=== PATIENT | female | born 1935 | race Caucasian/White ===

== ENCOUNTER 2017-10-30 14:43 | Inpatient (IN) | payer MEDICARE, MEDICAID ==
[~2017-10-30] VITALS: Ht 132.1 cm; Wt 51.5 kg
[2017-10-30] MEDS ORDERED: METHYL SALICYLATE/MENTHOL TOPICAL OINTMENT 29GM TUBE. TP PRN (15:30)
[2017-10-30] MEDS ORDERED: MAG HYDROX/AL HYDROX/SIMETH 30 ML ORAL.SUSP PO PRN (15:30)
[2017-10-30] MEDS ORDERED: MAGNESIUM HYDROXIDE 2,400 MG/30 ML ORAL.SUSP. PO PRN (15:30)
[2017-10-30] MEDS ORDERED: LEVO200T PO (15:48)
[2017-10-30] MEDS ORDERED: IRBE75TA2 PO (15:48)
[2017-10-30] MEDS ORDERED: ASPI-612 PO (15:48)
[2017-10-30] MEDS ORDERED: DIGO250T92 PO (15:48)
[2017-10-30] MEDS ORDERED: QUET25TA5 PO (15:48)
[2017-10-30] MEDS ORDERED: CHOL100013 PO (15:48)
[2017-10-30] MEDS ORDERED: DILT120C80 PO (15:48)
[2017-10-30] MEDS ORDERED: NITR0.4T22 SL (15:48)
[2017-10-30] MEDS ORDERED: DOCU-109 PO (15:48)
[2017-10-30] MEDS ORDERED: NAPR-695 PO (15:48)
[2017-10-30] MEDS ORDERED: CLOP75TA57 PO (15:48)
[2017-10-30 16:12] VITALS: BP 143/74
[2017-10-30 16:17] VITALS: BP 129/69
[2017-10-30 16:38] LABS: ALBUMIN 3.2 g/dL (3.4-5.0); ALBUMIN/GLOBULIN RATIO 0.9 (1.0-1.7); CALCIUM 8.8 mg/dL (8.5-10.1); CREATININE 0.8 mg/dL (0.6-1.0); DIG 0.9 ng/dL (0.9-2.0); GFR 68.7; MAGNESIUM 2.1 mg/dL (1.8-2.4); POTASSIUM 4.5 mmol/L (3.5-5.1); TOTAL BILIRUBIN 0.4 mg/dL (0.2-1.0); TOTAL PROTEIN 6.8 g/dL (6.4-8.2)
[2017-10-30 17:01] LABS: BASO # 0.1 x10^3/uL (0.0-0.2); BASO % 1 % (0-3); EOS # 0.5 x10^3/uL (0.0-0.7); EOS % 5 % (0-3); HEMATOCRIT 45.8 % (36.0-47.0); HEMOGLOBIN 15.4 g/dL (12.0-15.5); LYMPH # 3.2 x10^3/uL (1.0-4.8); LYMPH % 31 % (24-48); MEAN CORPUSCULAR HEMOGLOBIN 30 pg (25-35); MEAN CORPUSCULAR HGB CONC 34 g/dL (31-37); MEAN CORPUSCULAR VOLUME 90 fL (79-100); MONO % 10 % (0-9); NEUT # 5.6 x10^3uL (1.8-7.7); NEUT % 54 % (31-73); PLATELET COUNT 332 x10^3/uL (140-400); RED BLOOD COUNT 5.07 x10^6/uL (3.50-5.40); WHITE BLOOD COUNT 10.4 x10^3/uL (4.0-11.0)
[2017-10-30] MEDS ORDERED: NITROGLYCERIN SUBLINGUAL 0.4 MG BOTTLE OF 25. SL PRN (18:30)
--- NOTE | 2017-10-30 19:19 | PDOC ---
Exam Note: Jj Note: Please also refer to the separate dictated note~for this date of service dictated separately.~Patient seen individually. Discussed the patient with Nursing staff reviewed the chart.~Reviewed interim history and current functioning. Reviewed vital signs,~Labs/ Radiology~and current medications noted below. Continue current treatment with the changes noted in the dictated addendum note Assessment: Vital Signs: Vital Signs Date Time Temp Pulse Resp B/P (MAP) Pulse Ox O2 Delivery O2 Flow Rate FiO2 10/30/17 16:17 98.2 75 18 129/69 (89) 95 Labs: Laboratory Tests Test 10/30/17 16:15 White Blood Count 10.4 x10^3/uL (4.0-11.0) Red Blood Count 5.07 x10^6/uL (3.50-5.40) Hemoglobin 15.4 g/dL (12.0-15.5) Hematocrit 45.8 % (36.0-47.0) Mean Corpuscular Volume 90 fL (79-100) Mean Corpuscular Hemoglobin 30 pg (25-35) Mean Corpuscular Hemoglobin Concent 34 g/dL (31-37) Red Cell Distribution Width 14.0 % (11.5-14.5) Platelet Count 332 x10^3/uL (140-400) Neutrophils (%) (Auto) 54 % (31-73) Lymphocytes (%) (Auto) 31 % (24-48) Monocytes (%) (Auto) 10 % (0-9) H Eosinophils (%) (Auto) 5 % (0-3) H Basophils (%) (Auto) 1 % (0-3) Neutrophils # (Auto) 5.6 x10^3uL (1.8-7.7) Lymphocytes # (Auto) 3.2 x10^3/uL (1.0-4.8) Monocytes # (Auto) 1.0 x10^3/uL (0.0-1.1) Eosinophils # (Auto) 0.5 x10^3/uL (0.0-0.7) Basophils # (Auto) 0.1 x10^3/uL (0.0-0.2) Sodium Level 140 mmol/L (136-145) Potassium Level 4.5 mmol/L (3.5-5.1) Chloride Level 104 mmol/L (98-107) Carbon Dioxide Level 26 mmol/L (21-32) Anion Gap 10 (6-14) Blood Urea Nitrogen 20 mg/dL (7-20) Creatinine 0.8 mg/dL (0.6-1.0) Estimated GFR (Cockcroft-Gault) 68.7 BUN/Creatinine Ratio 25 (6-20) H Glucose Level 112 mg/dL (70-99) H Calcium Level 8.8 mg/dL (8.5-10.1) Magnesium Level 2.1 mg/dL (1.8-2.4) Total Bilirubin 0.4 mg/dL (0.2-1.0) Aspartate Amino Transferase (AST) 33 U/L (15-37) Alanine Aminotransferase (ALT) 34 U/L (14-59) Alkaline Phosphatase 164 U/L (46-116) H Total Protein 6.8 g/dL (6.4-8.2) Albumin 3.2 g/dL (3.4-5.0) L Albumin/Globulin Ratio 0.9 (1.0-1.7) L Digoxin Level 0.9 ng/dL (0.9-2.0) Digoxin Last Dose Date 10/30/17 Digoxin Last Dose Time 0900 Current Medications: Meds: Current Medications Acetaminophen (Tylenol) 650 mg PRN Q6HRS PRN PO PAIN / TEMP; Start 10/30/17 at 15:30 Multi-Ingredient Ointment (Analgesic [place]) 1 annita PRN QID PRN TP MUSCLE PAIN; Start 10/30/17 at 15:30 Al Hydroxide/Mg Hydroxide (Mylanta Plus Xs) 15 ml PRN AFTMEALHC PRN PO DYSPEPSIA; Start 10/30/17 at 15:30 Magnesium Hydroxide (Milk Of Magnesia) 2,400 mg PRN QHS PRN PO CONSTIPATION; Start 10/30/17 at 15:30 Quetiapine Fumarate (SEROquel) 12.5 mg BID PO ; Start 10/30/17 at 21:00; Stop 10/30/17 at 21:00; Status DC Info (FLU VACCINE per PROTOCOL) 1 ea 1X ONCE MC ; Start 11/01/17 at 09:00; Stop 11/01/17 at 09:01; Status UNV Pneumococcal Polyvalent Vaccine (Pneumovax 23) 0.5 ml ONCE ONCE VAX IM ; Start 11/01/17 at 09:00; Stop 11/01/17 at 09:01 Influenza Virus Vaccine Quadrival (Fluarix Quad [id number] Syringe) 0.5 ml ONCE ONCE VAX IM ; Start 11/01/17 at 09:00; Stop 11/01/17 at 09:01 Aspirin (Aspirin Enteric Coated) 81 mg DAILY PO ; Start 10/31/17 at 09:00 Clopidogrel Bisulfate (Plavix) 75 mg DAILY PO ; Start 10/31/17 at 09:00 Digoxin (Lanoxin) 125 mcg DAILY PO ; Start 10/31/17 at 09:00 Diltiazem HCl (Cardizem 24hr Cd) 120 mg DAILY PO ; Start 10/31/17 at 09:00 Docusate Sodium (Colace) 100 mg BID PO ; Start 10/30/17 at 21:00 Nitroglycerin (Nitrostat) 0.4 mg PRN Q5MIN PRN SL CHEST PAIN; Start 10/30/17 at 18:30 Vitamin D (Vitamin D3) 1,000 unit DAILY PO ; Start 10/31/17 at 09:00 Losartan Potassium (Cozaar) 25 mg DAILY PO ; Start 10/31/17 at 09:00 Levothyroxine Sodium (Synthroid) 200 mcg DAILY07 PO ; Start 10/31/17 at 07:00 Quetiapine Fumarate (SEROquel) 12.5 mg DAILY PO ; Start 10/31/17 at 09:00 Quetiapine Fumarate (SEROquel) 25 mg QHS PO ; Start 10/30/17 at 21:00 Active Scripts Active Reported Naproxen 375 Mg Tablet 375 Mg PO PRN Q8HRS PRN NITROGLYCERIN SubLingual (Nitroglycerin) 0.4 Mg Tab.subl 1 Tab SL PRN Q5MIN PRN MDD 3 tabs Seroquel (Quetiapine Fumarate) 25 Mg Tablet 12.5 Mg PO BID Colace (Docusate Sodium) 100 Mg Capsule 1 Cap PO BID Diltiazem 24HR Cd (Diltiazem Hcl) 120 Mg Cap.er.24h 1 Cap PO DAILY Vitamin D (Cholecalciferol (Vitamin D3)) 1,000 Unit Capsule 1 Cap PO DAILY Synthroid (Levothyroxine Sodium) 200 Mcg Tablet 1 Tab PO DAILY Avapro (Irbesartan) 75 Mg Tablet 75 Mg PO DAILY Digoxin 250 Mcg Tablet 0.125 Mg PO DAILY Aspirin Ec (Aspirin) 81 Mg Tablet. 81 Mg PO DAILY Plavix (Clopidogrel Bisulfate) 75 Mg Tablet 75 Mg PO DAILY I have reviewed the current psychotropics carefully including drug interactions. Risk benefit ratio favors no change other than as noted in my dictated progress note. Diagnosis: Problems: (1) Dementia in Alzheimer's disease with delirium (2) Anxiety disorder (3) Psychosis, atypical SERA THOMAS MD Oct 30, 2017 19:19
[2017-10-30] MEDS: QUEtiapine 25 MG TABLET. PO SCH (19:39)
[2017-10-30] MEDS: DOCUSATE SODIUM 100 MG CAPSULE PO SCH (19:39)
[2017-10-30] MEDS ORDERED: QUEtiapine 25 MG TABLET. PO SCH (21:00)
[2017-10-31 03:12] LABS: T3 TOTAL 114 ng/dL (71-180); THYROXINE 12.8 ug/dL (4.5-12.0)
[2017-10-31 04:09] LABS: HEMOGLOBIN A1C 5.1 % (4.8-5.6)
[2017-10-31 06:00] VITALS: BP 100/65
[2017-10-31] MEDS: LEVOTHYROXINE 100 MCG TABLET PO SCH (06:06)
[2017-10-31 08:00] LABS: BILIRUBIN,URINE NEG (NEG); CLARITY,URINE CLEAR; COLOR,URINE YELLOW; GLUCOSE,URINE NEG (NEG)
[2017-10-31 08:01] LABS: BACTERIA,URINE 0 /HPF (0-FEW); NITRITE,URINE NEG (NEG); RBC,URINE 0 /HPF (0-2); UROBILINOGEN,URINE 0.2 mg/dL (0.2 mg/dL); WBC,URINE 0 /HPF (0-4)
[2017-10-31] MEDS: ASPIRIN ENTERIC COATED 81 MG TABLET.DR. PO SCH (09:08)
[2017-10-31] MEDS: LOSARTAN 25 MG TABLET. PO SCH (09:08)
[2017-10-31] MEDS: DOCUSATE SODIUM 100 MG CAPSULE PO SCH ×2 (09:08→19:43)
[2017-10-31] MEDS: CHOLECALCIFEROL (VITAMIN D3) 1,000 UNIT TABLET PO SCH (09:08)
[2017-10-31] MEDS: DIGOXIN 125 MCG TABLET PO SCH (09:09)
[2017-10-31] MEDS: CLOPIDOGREL BISULFATE 75 MG TABLET PO SCH (09:09)
[2017-10-31] MEDS: QUEtiapine 25 MG TABLET. PO SCH ×2 (09:09→19:43)
[2017-10-31] MEDS: ACETAMINOPHEN 325 MG TABLET PO PRN ×2 (10:24→17:11)
--- NOTE | 2017-10-31 13:13 | HP ---
ADMIT DATE: 10/30/2017 PSYCHIATRIC ADMISSION HISTORY/EVALUATION This is a late entry, date of service 10/30/2017, covers elements not covered in my initial note . The patient was seen individually evening of 10/30/2017. Discussed with nursing staff several times prior to the patient's admission to gather background referral information from [facility] where the patient was hospitalized with Dr. Toussaint for medical stabilization and being referred to us on account of worsening psychosis, agitation after her legal guardian, her daughter, was appointed as an emergency by the court to facilitate this admission. Discussed with nursing staff, reviewed the chart. IDENTIFYING DATA: The patient is an 82-year-old female referred from [facility] where she has been hospitalized a few days with Dr. Toussaint for medical stabilization. She is referred for worsening symptoms of paranoia, increased agitation and aggression. She has had a drop in her appetite and weight. She goes to bank account, kept the money on herself because she believes people are trying to steal from her. She is refusing cares, has been depressed, increasingly angry in her outburst, drop in her level of abilities to take care of herself even though she was living at home prior to all this. She has been increasingly aggressive. Symptoms have worsened for the past 1 year, much worse over the past several days, initially resulting in the referral to the [facility] and then on to us. CHIEF COMPLAINT: "There is nothing wrong with me." HISTORY OF PRESENT ILLNESS: The patient reportedly has had symptoms of depression, marked paranoia, believing people are trying to steal from her. She has been withdrawn, spending much time in her room, anxious. She has had sleep and appetite changes as noted above. No active suicidal or homicidal ideation. No clear symptoms of bipolar disorder. She has had some short-term memory deficits, but despite this remains reasonably oriented. PAST PSYCHIATRIC HISTORY: As above. PAST MEDICAL HISTORY: Positive for atrial fibrillation, hypothyroidism, osteoarthritis, chronic pain, history of CVA/TIA. Accu-Cheks, none. DIET: Regular. Ambulates with a walker. CODE STATUS: Full code. ALLERGIES: AMOXIL, AZITHROMYCIN, LIPITOR. CURRENT PSYCHOTROPICS: Seroquel 12.5 mg b.i.d. FAMILY HISTORY: Noncontributory. SOCIAL HISTORY: The patient was residing at home herself prior to all of this. No alcohol or drug abuse history. She used to work in housekeeping at the hospital locally. MENTAL STATUS EXAMINATION: The patient was seen individually evening of 10/30/2017. She is oriented to herself, situation, minimizes, denies most of the problems, prompting admission. She does have short term memory deficits. Speech coherent, rapid at times quite paranoid, suspicious. No active suicidal or homicidal ideation. Intellect average. Insight limited, judgment marginal, language function intact. Mood and affect somewhat depressed, anxious. LABORATORY DATA: Reviewed. 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 Rest unchanged as above. PLAN: Admit to Geropsychiatry Unit at [facility]. I will see the patient daily individually, medical followup per Dr. Callaway/Dr. Lam. Continue current psychotropics. We will increase the Seroquel from 12.5 mg b.i.d. to 12.5 mg in the morning and 25 mg in the evening. Consider adding Zoloft as an antidepressant. There is a history of fall and a head injury and if a CT head has not been done, we will go ahead and do one. Further decisions will be made as hospitalization progresses. MAN Daron THOMAS MD DR: MEÑO/alexx JOB#: [id number] / [id number]
[2017-10-31 13:35] LABS: THYROID STIM HORMONE (TSH) 18.159 uIU/mL (0.358-3.740)
--- NOTE | 2017-10-31 14:33 | RAD ---
CT head without contrast History: Dementia. Comparison: None. Procedure: Axial images are obtained of the head from the skull base through the vertex without IV contrast. Findings: Moderate bilateral periventricular white matter hypodensities likely chronic small vessel ischemic disease. Mild age-related cerebral atrophy changes. The ventricles appear mildly prominent probably age-related cerebral atrophic changes.. No mass-effect, intracranial mass, midline shift, hemorrhage or obvious acute infarction is identified. Basilar cisterns are patent. Bone windows demonstrate no significant calvarial abnormality. The visualized paranasal sinuses appear clear. Impression: 1. No acute intracranial process. PQRS Compliance Statement: One or more of the following individualized dose reduction techniques were utilized for this examination: 1. Automated exposure control 2. Adjustment of the mA and/or kV according to patient size 3. Use of iterative reconstruction technique
[2017-10-31 15:27] VITALS: BP 131/78
--- NOTE | 2017-10-31 20:21 | PDOC ---
Exam Note: Jj Note: Please also refer to the separate dictated note~for this date of service dictated separately.~Patient seen individually. Discussed the patient with Nursing staff reviewed the chart.~Reviewed interim history and current functioning. Reviewed vital signs,~Labs/ Radiology~and current medications noted below. Continue current treatment with the changes noted in the dictated addendum note Assessment: Vital Signs: Vital Signs Date Time Temp Pulse Resp B/P (MAP) Pulse Ox O2 Delivery O2 Flow Rate FiO2 10/31/17 15:27 97.6 64 22 131/78 (95) 95 Labs: Laboratory Tests Test 10/31/17 07:00 Urine Collection Type Unknown Urine Color Yellow Urine Clarity Clear Urine pH 7.0 Urine Specific [place] 1.015 Urine Protein Neg (NEG-TRACE) Urine Glucose (UA) Neg mg/dL (NEG) Urine Ketones (Stick) Neg mg/dL (NEG) Urine Blood Neg (NEG) Urine Nitrite Neg (NEG) Urine Bilirubin Neg (NEG) Urine Urobilinogen Dipstick 0.2 mg/dL (0.2 mg/dL) Urine Leukocyte Esterase Neg (NEG) Urine RBC 0 /HPF (0-2) Urine WBC 0 /HPF (0-4) Urine Squamous Epithelial Cells None /LPF Urine Bacteria 0 /HPF (0-FEW) Current Medications: Meds: Current Medications Acetaminophen (Tylenol) 650 mg PRN Q6HRS PRN PO PAIN / TEMP Last administered on 10/31/17at 17:11; Start 10/30/17 at 15:30 Multi-Ingredient Ointment (Analgesic [place]) 1 annita PRN QID PRN TP MUSCLE PAIN; Start 10/30/17 at 15:30 Al Hydroxide/Mg Hydroxide (Mylanta Plus Xs) 15 ml PRN AFTMEALHC PRN PO DYSPEPSIA; Start 10/30/17 at 15:30 Magnesium Hydroxide (Milk Of Magnesia) 2,400 mg PRN QHS PRN PO CONSTIPATION; Start 10/30/17 at 15:30 Quetiapine Fumarate (SEROquel) 12.5 mg BID PO ; Start 10/30/17 at 21:00; Stop 10/30/17 at 21:00; Status DC Info (FLU VACCINE per PROTOCOL) 1 ea 1X ONCE MC ; Start 11/01/17 at 09:00; Stop 11/01/17 at 09:01; Status UNV Pneumococcal Polyvalent Vaccine (Pneumovax 23) 0.5 ml ONCE ONCE VAX IM ; Start 11/01/17 at 09:00; Stop 11/01/17 at 09:01 Influenza Virus Vaccine Quadrival (Fluarix Quad [id number] Syringe) 0.5 ml ONCE ONCE VAX IM ; Start 11/01/17 at 09:00; Stop 11/01/17 at 09:01 Aspirin (Aspirin Enteric Coated) 81 mg DAILY PO Last administered on 10/31/17 09:08; Start 10/31/17 at 09:00 Clopidogrel Bisulfate (Plavix) 75 mg DAILY PO Last administered on 10/31/17 09: 09; Start 10/31/17 at 09:00 Digoxin (Lanoxin) 125 mcg DAILY PO Last administered on 10/31/17 09:09; Start 10/31/17 at 09:00 Diltiazem HCl (Cardizem 24hr Cd) 120 mg DAILY PO Last administered on 10/31/17 09:08; Start 10/31/17 at 09:00 Docusate Sodium (Colace) 100 mg BID PO Last administered on 10/31/17 19:43; Start 10/30/17 at 21:00 Nitroglycerin (Nitrostat) 0.4 mg PRN Q5MIN PRN SL CHEST PAIN; Start 10/30/17 at 18:30 Vitamin D (Vitamin D3) 1,000 unit DAILY PO Last administered on 10/31/17 09:08 ; Start 10/31/17 at 09:00 Losartan Potassium (Cozaar) 25 mg DAILY PO Last administered on 10/31/17 09:08 ; Start 10/31/17 at 09:00 Levothyroxine Sodium (Synthroid) 200 mcg DAILY07 PO Last administered on 06:06; Start 10/31/17 at 07:00 Quetiapine Fumarate (SEROquel) 12.5 mg DAILY PO Last administered on 10/31/17 09:09; Start 10/31/17 at 09:00 Quetiapine Fumarate (SEROquel) 25 mg QHS PO Last administered on 10/31/17 19:43 ; Start 10/30/17 at 21:00 Sertraline HCl (Zoloft) 25 mg DAILY PO ; Start 11/01/17 at 09:00 Active Scripts Active Reported Naproxen 375 Mg Tablet 375 Mg PO PRN Q8HRS PRN NITROGLYCERIN SubLingual (Nitroglycerin) 0.4 Mg Tab.subl 1 Tab SL PRN Q5MIN PRN MDD 3 tabs Seroquel (Quetiapine Fumarate) 25 Mg Tablet 12.5 Mg PO BID Colace (Docusate Sodium) 100 Mg Capsule 1 Cap PO BID Diltiazem 24HR Cd (Diltiazem Hcl) 120 Mg Cap.er.24h 1 Cap PO DAILY Vitamin D (Cholecalciferol (Vitamin D3)) 1,000 Unit Capsule 1 Cap PO DAILY Synthroid (Levothyroxine Sodium) 200 Mcg Tablet 1 Tab PO DAILY Avapro (Irbesartan) 75 Mg Tablet 75 Mg PO DAILY Digoxin 250 Mcg Tablet 0.125 Mg PO DAILY Aspirin Ec (Aspirin) 81 Mg Tablet.dr 81 Mg PO DAILY Plavix (Clopidogrel Bisulfate) 75 Mg Tablet 75 Mg PO DAILY I have reviewed the current psychotropics carefully including drug interactions. Risk benefit ratio favors no change other than as noted in my dictated progress note. Diagnosis: Problems: (1) Dementia in Alzheimer's disease with delirium (2) Anxiety disorder (3) Psychosis, atypical SERA THOMAS MD Oct 31, 2017 20:21
[2017-11-01] MEDS: ACETAMINOPHEN 325 MG TABLET PO PRN (00:33)
[2017-11-01 05:58] VITALS: BP 120/59
[2017-11-01] MEDS: LEVOTHYROXINE 100 MCG TABLET PO SCH (06:07)
[2017-11-01] MEDS: CLOPIDOGREL BISULFATE 75 MG TABLET PO SCH (07:47)
[2017-11-01] MEDS: DIGOXIN 125 MCG TABLET PO SCH (07:47)
[2017-11-01] MEDS: CHOLECALCIFEROL (VITAMIN D3) 1,000 UNIT TABLET PO SCH (07:47)
[2017-11-01] MEDS: ASPIRIN ENTERIC COATED 81 MG TABLET.DR. PO SCH (07:48)
[2017-11-01] MEDS: QUEtiapine 25 MG TABLET. PO SCH ×2 (07:48→19:51)
[2017-11-01] MEDS: DOCUSATE SODIUM 100 MG CAPSULE PO SCH ×2 (07:48→19:51)
[2017-11-01] MEDS: LOSARTAN 25 MG TABLET. PO SCH (07:48)
[2017-11-01] MEDS: SERTRALINE 25 MG TABLET. PO SCH (07:50)
[2017-11-01] MEDS ORDERED: Influenza vaccine per PROTOCOL. MC ONE (09:00)
[2017-11-01] MEDS ORDERED: FLU VACC QS2017-18 (36MOS+)/PF 0.5 ML SYRINGE. VAX IM ONE (09:00)
[2017-11-01] MEDS ORDERED: PNEUMOC CONJ VACC 23-VALENT 0.5 ML VIAL. VAX IM ONE (09:00)
[2017-11-01] MEDS: CHOLECALCIFEROL (VITAMIN D3) 50,000 UNIT CAPSULE PO SCH (12:42)
--- NOTE | 2017-11-01 14:30 | HP ---
ADMIT DATE: 10/31/2017 MEDICAL HISTORY AND PHYSICAL FOR THE SENIOR BEHAVIORAL UNIT REASON FOR ADMISSION TO THE SENIOR BEHAVIORAL UNIT: This is an 82-year-old female who was transferred via [facility]. Prior to that, has lived in her own apartment, but the patient has been paranoid, stashing merchant on her purse and canceled her bank accounts, losing weight, no appetite, refusing care, depressed, increased anger and decreased activities of daily living and has been aggressive, her onset of symptoms in the past year. The patient has refused psychiatric care in the past. PAST MEDICAL HISTORY: Possibly paranoid ideation with dementia, atrial fibrillation, secondary hypothyroidism, osteoarthritis, chronic pain, history of CVA and TIAs. ALLERGIES: AMOXICILLIN. MEDICATIONS: Reviewed and are available on the MAR. REVIEW OF SYSTEMS: The patient having a lot of arthritic type pain, otherwise negative. OBJECTIVE: VITAL SIGNS: Blood pressure 131/78, pulse 64, respirations 22, pulse ox 95% on room air, temperature 97.6, height 52 inches, weight 111 pounds. GENERAL: Very petite female in no acute distress. She is resting comfortably in bed. HEENT: Her pupils were equal, round, and reactive to light. Extraocular muscles were intact. Nose was patent. Throat was clear. NECK: Supple. LUNGS: Clear to auscultation. CARDIOVASCULAR: Irregular rhythm and rate, 2/6 systolic murmur. ABDOMEN: Soft, nontender. EXTREMITIES: Without edema. NEUROLOGIC: Cranial nerves were intact. The patient can follow directions. She does have a slight tremor of her hands, does have severe osteoarthritis of the right knee and left knee and of her hands, particularly in the left hand. LABORATORY DATA: She had TSH of 15.70 and T4 elevated at 2.67 on 10/27/2017. She has low vitamin D of 11.8. TSH of 18.159 and T4 of 12.8. Other studies pending. B12 is 523. ASSESSMENT AND PLAN: 1. Frail elderly 82-year-old female. 2. Severe osteoarthritis. 3. Secondary hypothyroidism. Make sure she takes her levothyroxine. Had previously been on Cytomel, which she took herself off of 8-10 months ago. We will need an Endocrinology consult when she is discharged. 4. Atrial fibrillation with a history of rapid ventricular response. Monitor closely and follow along with Dr. Davila. HARVEY MENDOZA DO DR: BRIAN/alexx JOB#: [id number] / [id number]
[2017-11-01 16:00] VITALS: BP 109/58
[2017-11-01] MEDS: traMADol 50 MG TABLET PO PRN (17:35)
--- NOTE | 2017-11-01 19:40 | PDOC ---
Exam Note: Jj Note: Please also refer to the separate dictated note~for this date of service dictated separately.~Patient seen individually. Discussed the patient with Nursing staff reviewed the chart.~Reviewed interim history and current functioning. Reviewed vital signs,~Labs/ Radiology~and current medications noted below. Continue current treatment with the changes noted in the dictated addendum note Assessment: Vital Signs: Vital Signs Date Time Temp Pulse Resp B/P (MAP) Pulse Ox O2 Delivery O2 Flow Rate FiO2 11/01/17 16:00 98.0 67 18 109/58 (75) 95 I&O Intake and Output 11/01/17 07:00 Intake Total 840 ml Balance 840 ml Intake Oral 840 ml # Bowel Movements 1 Current Medications: Meds: Current Medications Acetaminophen (Tylenol) 650 mg PRN Q6HRS PRN PO PAIN / TEMP Last administered on 11/01/17at 00:33; Start 10/30/17 at 15:30 Multi-Ingredient Ointment (Analgesic [place]) 1 annita PRN QID PRN TP MUSCLE PAIN Last administered on 11/01/17at 00:33; Start 10/30/17 at 15:30 Al Hydroxide/Mg Hydroxide (Mylanta Plus Xs) 15 ml PRN AFTMEALHC PRN PO DYSPEPSIA; Start 10/30/17 at 15:30 Magnesium Hydroxide (Milk Of Magnesia) 2,400 mg PRN QHS PRN PO CONSTIPATION; Start 10/30/17 at 15:30 Quetiapine Fumarate (SEROquel) 12.5 mg BID PO ; Start 10/30/17 at 21:00; Stop 10/30/17 at 21:00; Status DC Info (FLU VACCINE per PROTOCOL) 1 ea 1X ONCE MC ; Start 11/01/17 at 09:00; Stop 11/01/17 at 09:01; Status UNV Pneumococcal Polyvalent Vaccine (Pneumovax 23) 0.5 ml ONCE ONCE VAX IM Last administered on 11/01/17at 10:12; Start 11/01/17 at 09:00; Stop 11/01/17 at 09:01; Status DC Influenza Virus Vaccine Quadrival (Fluarix Quad [id number] Syringe) 0.5 ml ONCE ONCE VAX IM Last administered on 11/01/17at 10:10; Start 11/01/17 at 09:00; Stop 11/01/17 at 09:01; Status DC Aspirin (Aspirin Enteric Coated) 81 mg DAILY PO Last administered on 11/01/17 07:48; Start 10/31/17 at 09:00 Clopidogrel Bisulfate (Plavix) 75 mg DAILY PO Last administered on 11/01/17 07: 47; Start 10/31/17 at 09:00 Digoxin (Lanoxin) 125 mcg DAILY PO Last administered on 11/01/17 07:47; Start 10/31/17 at 09:00 Diltiazem HCl (Cardizem 24hr Cd) 120 mg DAILY PO Last administered on 11/01/17 07:47; Start 10/31/17 at 09:00 Docusate Sodium (Colace) 100 mg BID PO Last administered on 11/01/17 07:48; Start 10/30/17 at 21:00 Nitroglycerin (Nitrostat) 0.4 mg PRN Q5MIN PRN SL CHEST PAIN; Start 10/30/17 at 18:30 Vitamin D (Vitamin D3) 1,000 unit DAILY PO Last administered on 11/01/17 07:47 ; Start 10/31/17 at 09:00 Losartan Potassium (Cozaar) 25 mg DAILY PO Last administered on 11/01/17 07:48 ; Start 10/31/17 at 09:00 Levothyroxine Sodium (Synthroid) 200 mcg DAILY07 PO Last administered on 06:07; Start 10/31/17 at 07:00 Quetiapine Fumarate (SEROquel) 12.5 mg DAILY PO Last administered on 11/01/17 07:48; Start 10/31/17 at 09:00 Quetiapine Fumarate (SEROquel) 25 mg QHS PO Last administered on 10/31/17 19:43 ; Start 10/30/17 at 21:00 Sertraline HCl (Zoloft) 25 mg DAILY PO Last administered on 11/01/17 07:50; Start 11/01/17 at 09:00 Vitamin D (Vitamin D3) 50,000 unit WEEKLY PO Last administered on 11/01/17 12: 42; Start 11/01/17 at 12:00 Tramadol HCl (Ultram) 50 mg PRN Q6HRS PRN PO PAIN Last administered on 2/9/ 18at 17:35; Start 11/01/17 at 14:45 Mirtazapine (Remeron) 7.5 mg QHS PO ; Start 11/01/17 at 21:00 Active Scripts Active Reported Naproxen 375 Mg Tablet 375 Mg PO PRN Q8HRS PRN NITROGLYCERIN SubLingual (Nitroglycerin) 0.4 Mg Tab.subl 1 Tab SL PRN Q5MIN PRN MDD 3 tabs Seroquel (Quetiapine Fumarate) 25 Mg Tablet 12.5 Mg PO BID Colace (Docusate Sodium) 100 Mg Capsule 1 Cap PO BID Diltiazem 24HR Cd (Diltiazem Hcl) 120 Mg Cap.er.24h 1 Cap PO DAILY Vitamin D (Cholecalciferol (Vitamin D3)) 1,000 Unit Capsule 1 Cap PO DAILY Synthroid (Levothyroxine Sodium) 200 Mcg Tablet 1 Tab PO DAILY Avapro (Irbesartan) 75 Mg Tablet 75 Mg PO DAILY Digoxin 250 Mcg Tablet 0.125 Mg PO DAILY Aspirin Ec (Aspirin) 81 Mg Tablet.dr 81 Mg PO DAILY Plavix (Clopidogrel Bisulfate) 75 Mg Tablet 75 Mg PO DAILY I have reviewed the current psychotropics carefully including drug interactions. Risk benefit ratio favors no change other than as noted in my dictated progress note. Diagnosis: Problems: (1) Dementia in Alzheimer's disease with delirium (2) Anxiety disorder (3) Psychosis, atypical SERA THOMAS MD Nov 01, 2017 19:40
[2017-11-01] MEDS: MIRTAZAPINE 7.5 MG TABLET. PO SCH (19:51)
[2017-11-02] MEDS: LEVOTHYROXINE 100 MCG TABLET PO SCH (05:51)
[2017-11-02 05:55] VITALS: BP 138/73
--- NOTE | 2017-11-02 06:02 | PN ---
DATE: 10/31/2017 PSYCHIATRIC PROGRESS NOTE This is a late entry for 10/31/2017, covers elements not covered in my initial note of 10/31/2017. Met with the patient in the evening of 10/31/2017 and staffed at a treatment team meeting with the entire team morning of 10/31/2017. The patient's history was reviewed. She has been withdrawn, daughter has obtained emergency guardianship, somewhat paranoid. We will check a CT head if one is not being done. She slept 5-1/4 hours previous evening, withdrawn, spending much time in her room, which is where I met with her. No CV, , pulmonary, eye system symptoms on review. Seems more confused, paranoid as I met with him. MENTAL STATUS EXAM: Oriented to herself and situation. Speech coherent, rapid. Abstraction fair, computation impaired, language function intact. Attention span short. 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 Rest unchanged. PLAN: Start Zoloft [address] Check [address] head. Maintain Seroquel at current dosage. MAN Daron THOMAS MD DR: MEÑO/alexx JOB#: [id number] / [id number]
[2017-11-02] MEDS: CLOPIDOGREL BISULFATE 75 MG TABLET PO SCH (07:29)
[2017-11-02] MEDS: LOSARTAN 25 MG TABLET. PO SCH (07:29)
[2017-11-02] MEDS: ASPIRIN ENTERIC COATED 81 MG TABLET.DR. PO SCH (07:30)
[2017-11-02] MEDS: DIGOXIN 125 MCG TABLET PO SCH (07:31)
[2017-11-02] MEDS: CHOLECALCIFEROL (VITAMIN D3) 1,000 UNIT TABLET PO SCH (07:31)
[2017-11-02] MEDS: QUEtiapine 25 MG TABLET. PO SCH ×2 (07:31→19:56)
[2017-11-02] MEDS: DOCUSATE SODIUM 100 MG CAPSULE PO SCH ×2 (07:31→19:56)
[2017-11-02] MEDS: SERTRALINE 25 MG TABLET. PO SCH (07:31)
[2017-11-02 16:21] VITALS: BP 143/92
[2017-11-02] MEDS: MIRTAZAPINE 7.5 MG TABLET. PO SCH (19:56)
--- NOTE | 2017-11-02 21:37 | PDOC ---
Exam Note: Jj Note: Please also refer to the separate dictated note~for this date of service dictated separately.~Patient seen individually. Discussed the patient with Nursing staff reviewed the chart.~Reviewed interim history and current functioning. Reviewed vital signs,~Labs/ Radiology~and current medications noted below. Continue current treatment with the changes noted in the dictated addendum note Assessment: Vital Signs: Vital Signs Date Time Temp Pulse Resp B/P (MAP) Pulse Ox O2 Delivery O2 Flow Rate FiO2 11/02/17 16:21 99.8 96 20 143/92 (109) 97 Room Air I&O Intake and Output 11/02/17 07:00 Intake Total 1440 ml Balance 1440 ml Intake Oral 1440 ml # Bowel Movements 1 Current Medications: Meds: Current Medications Acetaminophen (Tylenol) 650 mg PRN Q6HRS PRN PO PAIN / TEMP Last administered on 11/01/17at 00:33; Start 10/30/17 at 15:30 Multi-Ingredient Ointment (Analgesic [place]) 1 annita PRN QID PRN TP MUSCLE PAIN Last administered on 11/01/17at 00:33; Start 10/30/17 at 15:30 Al Hydroxide/Mg Hydroxide (Mylanta Plus Xs) 15 ml PRN AFTMEALHC PRN PO DYSPEPSIA; Start 10/30/17 at 15:30 Magnesium Hydroxide (Milk Of Magnesia) 2,400 mg PRN QHS PRN PO CONSTIPATION; Start 10/30/17 at 15:30 Quetiapine Fumarate (SEROquel) 12.5 mg BID PO ; Start 10/30/17 at 21:00; Stop 10/30/17 at 21:00; Status DC Info (FLU VACCINE per PROTOCOL) 1 ea 1X ONCE MC ; Start 11/01/17 at 09:00; Stop 11/01/17 at 09:01; Status UNV Pneumococcal Polyvalent Vaccine (Pneumovax 23) 0.5 ml ONCE ONCE VAX IM Last administered on 11/01/17at 10:12; Start 11/01/17 at 09:00; Stop 11/01/17 at 09:01; Status DC Influenza Virus Vaccine Quadrival (Fluarix Quad 6109-6706 Syringe) 0.5 ml ONCE ONCE VAX IM Last administered on 11/01/17at 10:10; Start 11/01/17 at 09:00; Stop 11/01/17 at 09:01; Status DC Aspirin (Aspirin Enteric Coated) 81 mg DAILY PO Last administered on 11/02/17 07:30; Start 10/31/17 at 09:00 Clopidogrel Bisulfate (Plavix) 75 mg DAILY PO Last administered on 11/02/17 07 :29; Start 10/31/17 at 09:00 Digoxin (Lanoxin) 125 mcg DAILY PO Last administered on 11/02/17 07:31; Start 10/31/17 at 09:00 Diltiazem HCl (Cardizem 24hr Cd) 120 mg DAILY PO Last administered on 07:30; Start 10/31/17 at 09:00 Docusate Sodium (Colace) 100 mg BID PO Last administered on 11/02/17 19:56; Start 10/30/17 at 21:00 Nitroglycerin (Nitrostat) 0.4 mg PRN Q5MIN PRN SL CHEST PAIN; Start 10/30/17 at 18:30 Vitamin D (Vitamin D3) 1,000 unit DAILY PO Last administered on 11/02/17 07:31 ; Start 10/31/17 at 09:00 Losartan Potassium (Cozaar) 25 mg DAILY PO Last administered on 11/02/17 07:29 ; Start 10/31/17 at 09:00 Levothyroxine Sodium (Synthroid) 200 mcg DAILY07 PO Last administered on 05:51; Start 10/31/17 at 07:00 Quetiapine Fumarate (SEROquel) 12.5 mg DAILY PO Last administered on 11/02/17 07:31; Start 10/31/17 at 09:00 Quetiapine Fumarate (SEROquel) 25 mg QHS PO Last administered on 11/02/17 19: 56; Start 10/30/17 at 21:00 Sertraline HCl (Zoloft) 25 mg DAILY PO Last administered on 11/02/17 07:31; Start 11/01/17 at 09:00 Vitamin D (Vitamin D3) 50,000 unit WEEKLY PO Last administered on 11/01/17 12: 42; Start 11/01/17 at 12:00 Tramadol HCl (Ultram) 50 mg PRN Q6HRS PRN PO PAIN Last administered on 2/9/ 18at 17:35; Start 11/01/17 at 14:45 Mirtazapine (Remeron) 7.5 mg QHS PO Last administered on 11/02/17at 19:56; Start 11/01/17 at 21:00 Active Scripts Active Reported Naproxen 375 Mg Tablet 375 Mg PO PRN Q8HRS PRN NITROGLYCERIN SubLingual (Nitroglycerin) 0.4 Mg Tab.subl 1 Tab SL PRN Q5MIN PRN MDD 3 tabs Seroquel (Quetiapine Fumarate) 25 Mg Tablet 12.5 Mg PO BID Colace (Docusate Sodium) 100 Mg Capsule 1 Cap PO BID Diltiazem 24HR Cd (Diltiazem Hcl) 120 Mg Cap.er.24h 1 Cap PO DAILY Vitamin D (Cholecalciferol (Vitamin D3)) 1,000 Unit Capsule 1 Cap PO DAILY Synthroid (Levothyroxine Sodium) 200 Mcg Tablet 1 Tab PO DAILY Avapro (Irbesartan) 75 Mg Tablet 75 Mg PO DAILY Digoxin 250 Mcg Tablet 0.125 Mg PO DAILY Aspirin Ec (Aspirin) 81 Mg Tablet.dr 81 Mg PO DAILY Plavix (Clopidogrel Bisulfate) 75 Mg Tablet 75 Mg PO DAILY I have reviewed the current psychotropics carefully including drug interactions. Risk benefit ratio favors no change other than as noted in my dictated progress note. Diagnosis: Problems: (1) Dementia in Alzheimer's disease with delirium (2) Anxiety disorder (3) Psychosis, atypical SERA THOMAS MD Nov 02, 2017 21:37
[2017-11-03 05:52] VITALS: BP 113/67
[2017-11-03] MEDS: LEVOTHYROXINE 100 MCG TABLET PO SCH (06:09)
[2017-11-03] MEDS: DIGOXIN 125 MCG TABLET PO SCH (07:35)
[2017-11-03] MEDS: CLOPIDOGREL BISULFATE 75 MG TABLET PO SCH (07:36)
[2017-11-03] MEDS: QUEtiapine 25 MG TABLET. PO SCH ×2 (07:36→20:05)
[2017-11-03] MEDS: CHOLECALCIFEROL (VITAMIN D3) 1,000 UNIT TABLET PO SCH (07:36)
[2017-11-03] MEDS: SERTRALINE 25 MG TABLET. PO SCH (07:36)
[2017-11-03] MEDS: ASPIRIN ENTERIC COATED 81 MG TABLET.DR. PO SCH (07:36)
[2017-11-03] MEDS: DOCUSATE SODIUM 100 MG CAPSULE PO SCH ×2 (07:36→20:04)
[2017-11-03] MEDS: LOSARTAN 25 MG TABLET. PO SCH (07:37)
[2017-11-03 16:06] VITALS: BP 103/63
[2017-11-03] MEDS: MIRTAZAPINE 7.5 MG TABLET. PO SCH (20:04)
--- NOTE | 2017-11-03 20:42 | PDOC ---
Exam Note: Jj Note: Please also refer to the separate dictated note~for this date of service dictated separately.~Patient seen individually. Discussed the patient with Nursing staff reviewed the chart.~Reviewed interim history and current functioning. Reviewed vital signs,~Labs/ Radiology~and current medications noted below. Continue current treatment with the changes noted in the dictated addendum note Assessment: Vital Signs: Vital Signs Date Time Temp Pulse Resp B/P (MAP) Pulse Ox O2 Delivery O2 Flow Rate FiO2 11/03/17 16:06 98.9 68 20 103/63 (76) 96 11/02/17 16:21 Room Air I&O Intake and Output 11/03/17 07:00 Intake Total 720 ml Balance 720 ml Intake Oral 720 ml Current Medications: Meds: Current Medications Acetaminophen (Tylenol) 650 mg PRN Q6HRS PRN PO PAIN / TEMP Last administered on 11/01/17at 00:33; Start 10/30/17 at 15:30 Multi-Ingredient Ointment (Analgesic [place]) 1 annita PRN QID PRN TP MUSCLE PAIN Last administered on 11/01/17at 00:33; Start 10/30/17 at 15:30 Al Hydroxide/Mg Hydroxide (Mylanta Plus Xs) 15 ml PRN AFTMEALHC PRN PO DYSPEPSIA; Start 10/30/17 at 15:30 Magnesium Hydroxide (Milk Of Magnesia) 2,400 mg PRN QHS PRN PO CONSTIPATION; Start 10/30/17 at 15:30 Quetiapine Fumarate (SEROquel) 12.5 mg BID PO ; Start 10/30/17 at 21:00; Stop 10/30/17 at 21:00; Status DC Info (FLU VACCINE per PROTOCOL) 1 ea 1X ONCE MC ; Start 11/01/17 at 09:00; Stop 11/01/17 at 09:01; Status UNV Pneumococcal Polyvalent Vaccine (Pneumovax 23) 0.5 ml ONCE ONCE VAX IM Last administered on 11/01/17at 10:12; Start 11/01/17 at 09:00; Stop 11/01/17 at 09:01; Status DC Influenza Virus Vaccine Quadrival (Fluarix Quad 6984-6100 Syringe) 0.5 ml ONCE ONCE VAX IM Last administered on 11/01/17at 10:10; Start 11/01/17 at 09:00; Stop 11/01/17 at 09:01; Status DC Aspirin (Aspirin Enteric Coated) 81 mg DAILY PO Last administered on 11/03/17 07:36; Start 10/31/17 at 09:00 Clopidogrel Bisulfate (Plavix) 75 mg DAILY PO Last administered on 11/03/17 07 :36; Start 10/31/17 at 09:00 Digoxin (Lanoxin) 125 mcg DAILY PO Last administered on 11/03/17 07:35; Start 10/31/17 at 09:00 Diltiazem HCl (Cardizem 24hr Cd) 120 mg DAILY PO Last administered on 07:36; Start 10/31/17 at 09:00 Docusate Sodium (Colace) 100 mg BID PO Last administered on 11/03/17 20:04; Start 10/30/17 at 21:00 Nitroglycerin (Nitrostat) 0.4 mg PRN Q5MIN PRN SL CHEST PAIN; Start 10/30/17 at 18:30 Vitamin D (Vitamin D3) 1,000 unit DAILY PO Last administered on 11/03/17 07:36 ; Start 10/31/17 at 09:00 Losartan Potassium (Cozaar) 25 mg DAILY PO Last administered on 11/03/17 07:37 ; Start 10/31/17 at 09:00 Levothyroxine Sodium (Synthroid) 200 mcg DAILY07 PO Last administered on 06:09; Start 10/31/17 at 07:00 Quetiapine Fumarate (SEROquel) 12.5 mg DAILY PO Last administered on 11/03/17 07:36; Start 10/31/17 at 09:00 Quetiapine Fumarate (SEROquel) 25 mg QHS PO Last administered on 11/03/17 20: 05; Start 10/30/17 at 21:00 Sertraline HCl (Zoloft) 25 mg DAILY PO Last administered on 11/03/17 07:36; Start 11/01/17 at 09:00 Vitamin D (Vitamin D3) 50,000 unit WEEKLY PO Last administered on 11/01/17 12: 42; Start 11/01/17 at 12:00 Tramadol HCl (Ultram) 50 mg PRN Q6HRS PRN PO PAIN Last administered on 2/9/ 18at 17:35; Start 11/01/17 at 14:45 Mirtazapine (Remeron) 7.5 mg QHS PO Last administered on 11/03/17at 20:04; Start 11/01/17 at 21:00 Active Scripts Active Reported Naproxen 375 Mg Tablet 375 Mg PO PRN Q8HRS PRN NITROGLYCERIN SubLingual (Nitroglycerin) 0.4 Mg Tab.subl 1 Tab SL PRN Q5MIN PRN MDD 3 tabs Seroquel (Quetiapine Fumarate) 25 Mg Tablet 12.5 Mg PO BID Colace (Docusate Sodium) 100 Mg Capsule 1 Cap PO BID Diltiazem 24HR Cd (Diltiazem Hcl) 120 Mg Cap.er.24h 1 Cap PO DAILY Vitamin D (Cholecalciferol (Vitamin D3)) 1,000 Unit Capsule 1 Cap PO DAILY Synthroid (Levothyroxine Sodium) 200 Mcg Tablet 1 Tab PO DAILY Avapro (Irbesartan) 75 Mg Tablet 75 Mg PO DAILY Digoxin 250 Mcg Tablet 0.125 Mg PO DAILY Aspirin Ec (Aspirin) 81 Mg Tablet.dr 81 Mg PO DAILY Plavix (Clopidogrel Bisulfate) 75 Mg Tablet 75 Mg PO DAILY I have reviewed the current psychotropics carefully including drug interactions. Risk benefit ratio favors no change other than as noted in my dictated progress note. Diagnosis: Problems: (1) Dementia in Alzheimer's disease with delirium (2) Anxiety disorder (3) Psychosis, atypical SERA THOMAS MD Nov 03, 2017 20:42
--- NOTE | 2017-11-04 02:19 | PN ---
DATE: 11/01/2017 This is a late entry, 11/01/2017, covers the elements not covered in my initial note, 11/01/2017. SUBJECTIVE: I met with the patient in the evening of 11/01/2017. The patient has been sleeping poorly. She received flu and pneumonia vaccination, remains on Ultram for pain. Anxious, somewhat, delusional at times, I met with her in her room. REVIEW OF SYSTEMS: No CV, , pulmonary, eye system symptoms on review. MENTAL STATUS EXAM: Oriented to herself and situation. Speech has some latency, coherent. Abstraction fair, computation impaired, language function intact, attention span short. Mood and affect somewhat withdrawn. LABORATORY DATA: Reviewed. IMPRESSION: Major depressive disorder with psychotic features; major neurocognitive disorder, early Alzheimer, vascular with delusion, depression, insomnia. PLAN: Start Remeron 7.5 mg p.o. at bedtime. Continue Seroquel, Zoloft at the current dosage. Adjust further as clinically indicated. MAN Daron THOMAS MD DR: MEÑO/alexx JOB#: [id number] / [id number]
[2017-11-04] MEDS: traMADol 50 MG TABLET PO PRN (02:20)
--- NOTE | 2017-11-04 03:16 | PN ---
DATE: 11/02/2017 This is a late entry 11/02/2017, covers the elements not covered in my initial note of 11/02/2017. SUBJECTIVE: I met with the patient in the evening of 11/02/2017. The patient slept 8-1/4 hours previous evening repeatedly yelling for help. Family came to visit her and we will check with them on how they felt about her delusions because she does not voice much of them to us, though she remains suspicious. REVIEW OF SYSTEMS: No CV, , pulmonary, eye system symptoms on review. MENTAL STATUS EXAM: Oriented to herself and situation. Speech coherent, has some latency. Abstraction fair, computation impaired, language function intact. Mood and affect withdrawn. LABORATORY DATA: Reviewed. IMPRESSION: Major depressive disorder with psychotic features. Major neurocognitive disorder, Alzheimer, vascular with depression, delusion. PLAN: Continue current psychotropics including the Remeron, Zoloft, and Seroquel. Adjust as indicated. SERA THOMAS MD DR: MEÑO/alexx JOB#: [id number] / [id number]
[2017-11-04 06:03] VITALS: BP 128/64
[2017-11-04] MEDS: LEVOTHYROXINE 100 MCG TABLET PO SCH (06:23)
[2017-11-04] MEDS: DOCUSATE SODIUM 100 MG CAPSULE PO SCH ×2 (10:07→19:52)
[2017-11-04] MEDS: SERTRALINE 25 MG TABLET. PO SCH (10:08)
[2017-11-04] MEDS: QUEtiapine 25 MG TABLET. PO SCH (10:08)
[2017-11-04] MEDS: CLOPIDOGREL BISULFATE 75 MG TABLET PO SCH (10:08)
[2017-11-04] MEDS: ASPIRIN ENTERIC COATED 81 MG TABLET.DR. PO SCH (10:08)
[2017-11-04] MEDS: CHOLECALCIFEROL (VITAMIN D3) 1,000 UNIT TABLET PO SCH (10:08)
[2017-11-04] MEDS: LOSARTAN 25 MG TABLET. PO SCH (10:09)
[2017-11-04] MEDS: DIGOXIN 125 MCG TABLET PO SCH (10:09)
[2017-11-04 16:31] VITALS: BP 125/61
[2017-11-04] MEDS: risperiDONE 0.25 MG TABLET. PO SCH (19:52)
[2017-11-04] MEDS: MIRTAZAPINE 7.5 MG TABLET. PO SCH (19:52)
[2017-11-04] MEDS ORDERED: QUEtiapine 25 MG TABLET. PO SCH (21:00)
--- NOTE | 2017-11-04 22:37 | PDOC ---
Exam Note: Jj Note: Please also refer to the separate dictated note~for this date of service dictated separately.~Patient seen individually. Discussed the patient with Nursing staff reviewed the chart.~Reviewed interim history and current functioning. Reviewed vital signs,~Labs/ Radiology~and current medications noted below. Continue current treatment with the changes noted in the dictated addendum note Assessment: Vital Signs: Vital Signs Date Time Temp Pulse Resp B/P (MAP) Pulse Ox O2 Delivery O2 Flow Rate FiO2 11/04/17 16:31 97.8 80 20 125/61 (82) 97 11/04/17 02:20 Room Air I&O Intake and Output 11/04/17 07:00 Intake Total 600 ml Balance 600 ml Intake Oral 600 ml Current Medications: Meds: Current Medications Acetaminophen (Tylenol) 650 mg PRN Q6HRS PRN PO PAIN / TEMP Last administered on 11/01/17at 00:33; Start 10/30/17 at 15:30 Multi-Ingredient Ointment (Analgesic [place]) 1 annita PRN QID PRN TP MUSCLE PAIN Last administered on 11/01/17at 00:33; Start 10/30/17 at 15:30 Al Hydroxide/Mg Hydroxide (Mylanta Plus Xs) 15 ml PRN AFTMEALHC PRN PO DYSPEPSIA; Start 10/30/17 at 15:30 Magnesium Hydroxide (Milk Of Magnesia) 2,400 mg PRN QHS PRN PO CONSTIPATION; Start 10/30/17 at 15:30 Quetiapine Fumarate (SEROquel) 12.5 mg BID PO ; Start 10/30/17 at 21:00; Stop 10/30/17 at 21:00; Status DC Info (FLU VACCINE per PROTOCOL) 1 ea 1X ONCE MC ; Start 11/01/17 at 09:00; Stop 11/01/17 at 09:01; Status UNV Pneumococcal Polyvalent Vaccine (Pneumovax 23) 0.5 ml ONCE ONCE VAX IM Last administered on 11/01/17at 10:12; Start 11/01/17 at 09:00; Stop 11/01/17 at 09:01; Status DC Influenza Virus Vaccine Quadrival (Fluarix Quad [id number] Syringe) 0.5 ml ONCE ONCE VAX IM Last administered on 11/01/17at 10:10; Start 11/01/17 at 09:00; Stop 11/01/17 at 09:01; Status DC Aspirin (Aspirin Enteric Coated) 81 mg DAILY PO Last administered on 11/04/17 10:08; Start 10/31/17 at 09:00 Clopidogrel Bisulfate (Plavix) 75 mg DAILY PO Last administered on 11/04/17 10 :08; Start 10/31/17 at 09:00 Digoxin (Lanoxin) 125 mcg DAILY PO Last administered on 11/04/17 10:09; Start 10/31/17 at 09:00 Diltiazem HCl (Cardizem 24hr Cd) 120 mg DAILY PO Last administered on 10:08; Start 10/31/17 at 09:00 Docusate Sodium (Colace) 100 mg BID PO Last administered on 11/04/17 19:52; Start 10/30/17 at 21:00 Nitroglycerin (Nitrostat) 0.4 mg PRN Q5MIN PRN SL CHEST PAIN; Start 10/30/17 at 18:30 Vitamin D (Vitamin D3) 1,000 unit DAILY PO Last administered on 11/04/17 10:08 ; Start 10/31/17 at 09:00 Losartan Potassium (Cozaar) 25 mg DAILY PO Last administered on 11/04/17 10:09 ; Start 10/31/17 at 09:00 Levothyroxine Sodium (Synthroid) 200 mcg DAILY07 PO Last administered on 06:23; Start 10/31/17 at 07:00 Quetiapine Fumarate (SEROquel) 12.5 mg DAILY PO Last administered on 11/04/17 10:08; Start 10/31/17 at 09:00; Stop 11/04/17 at 19:26; Status DC Quetiapine Fumarate (SEROquel) 25 mg QHS PO Last administered on 11/03/17 20: 05; Start 10/30/17 at 21:00; Stop 11/04/17 at 17:39; Status DC Sertraline HCl (Zoloft) 25 mg DAILY PO Last administered on 11/04/17 10:08; Start 11/01/17 at 09:00 Vitamin D (Vitamin D3) 50,000 unit WEEKLY PO Last administered on 11/01/17at 12: 42; Start 11/01/17 at 12:00 Tramadol HCl (Ultram) 50 mg PRN Q6HRS PRN PO PAIN Last administered on at 02:20; Start 11/01/17 at 14:45 Mirtazapine (Remeron) 7.5 mg QHS PO Last administered on 11/04/17at 19:52; Start 11/01/17 at 21:00 Quetiapine Fumarate (SEROquel) 37.5 mg QHS PO ; Start 11/04/17 at 21:00; Stop at 21:00; Status DC Risperidone (RisperDAL) 0.25 mg QHS PO Last administered on 11/04/17at 19:52; Start 11/04/17 at 21:00 Active Scripts Active Reported Naproxen 375 Mg Tablet 375 Mg PO PRN Q8HRS PRN NITROGLYCERIN SubLingual (Nitroglycerin) 0.4 Mg Tab.subl 1 Tab SL PRN Q5MIN PRN MDD 3 tabs Seroquel (Quetiapine Fumarate) 25 Mg Tablet 12.5 Mg PO BID Colace (Docusate Sodium) 100 Mg Capsule 1 Cap PO BID Diltiazem 24HR Cd (Diltiazem Hcl) 120 Mg Cap.er.24h 1 Cap PO DAILY Vitamin D (Cholecalciferol (Vitamin D3)) 1,000 Unit Capsule 1 Cap PO DAILY Synthroid (Levothyroxine Sodium) 200 Mcg Tablet 1 Tab PO DAILY Avapro (Irbesartan) 75 Mg Tablet 75 Mg PO DAILY Digoxin 250 Mcg Tablet 0.125 Mg PO DAILY Aspirin Ec (Aspirin) 81 Mg Tablet.dr 81 Mg PO DAILY Plavix (Clopidogrel Bisulfate) 75 Mg Tablet 75 Mg PO DAILY I have reviewed the current psychotropics carefully including drug interactions. Risk benefit ratio favors no change other than as noted in my dictated progress note. Diagnosis: Problems: (1) Dementia in Alzheimer's disease with delirium (2) Anxiety disorder (3) Psychosis, atypical SERA THOMAS MD Nov 04, 2017 22:37
--- NOTE | 2017-11-05 05:30 | PN ---
DATE: 11/03/2017 PSYCHIATRIC PROGRESS NOTE This is a late entry for 11/03/2017, covers elements not covered in my initial note of 11/03/2017. SUBJECTIVE: I met with the patient the evening of 11/03/2017. The patient refused her lunch, was tearful, compliant with medications, talked with her daughter on the phone, said she hated her daughter because she stole her money, remains delusional. REVIEW OF SYSTEMS: No CV, , pulmonary, eye, ENT system symptoms on review. Reliability poor. MENTAL STATUS EXAM: Oriented to herself and at times situation. Speech coherent. I met with her at length in her room. Abstraction fair, computation impaired, somewhat psychotic, suspicious. No active suicidal or homicidal ideation. IMPRESSION: Psychotic disorder, unspecified versus major neurocognitive disorder delusion, depression, behavioral disturbance. PLAN: Continue current psychotropics. Seroquel will be increased to 12.5 mg in the morning and 37.5 mg at night. Adjust further as clinically indicated. MAN Daron THOMAS MD DR: MEÑO/alexx JOB#: [id number] / [id number]
[2017-11-05] MEDS: LEVOTHYROXINE 100 MCG TABLET PO SCH (06:25)
[2017-11-05 06:43] VITALS: BP 129/74
[2017-11-05] MEDS: LOSARTAN 25 MG TABLET. PO SCH (08:00)
[2017-11-05] MEDS: CHOLECALCIFEROL (VITAMIN D3) 1,000 UNIT TABLET PO SCH (08:01)
[2017-11-05] MEDS: CLOPIDOGREL BISULFATE 75 MG TABLET PO SCH (08:01)
[2017-11-05] MEDS: DIGOXIN 125 MCG TABLET PO SCH (08:01)
[2017-11-05] MEDS: SERTRALINE 25 MG TABLET. PO SCH (08:01)
[2017-11-05] MEDS: ASPIRIN ENTERIC COATED 81 MG TABLET.DR. PO SCH (08:01)
[2017-11-05] MEDS: DOCUSATE SODIUM 100 MG CAPSULE PO SCH ×2 (08:02→19:45)
--- NOTE | 2017-11-05 10:03 | RAD ---
CT cervical spine INDICATION: fall recently. continued neck pain and popping noise when moving neck and head. no prior imaging for comparison.Patient fell 3 weeks ago. COMPARISON: None Available. Technique: Standard noncontrast axial images. Additional sagittal and coronal reconstructions were also performed. Exposure: One or more of the following individualized dose reduction techniques were utilized for this examination: 1. Automated exposure control 2. Adjustment of the mA and/or kV according to patient size 3. Use of iterative reconstruction technique. FINDINGS: Limited visualization of the lower brain demonstrates apparent atrophy. Ring of C1 is intact Relationship of C1 with the occipital condyles is intact. Relationship of C1 with C2 is maintained. There are degenerative changes at the articulation of C1 with the odontoid. There is mild calcification posterior to the odontoid. No evidence of acute fracture. No evidence of traumatic subluxation. The paraspinous soft tissues are unremarkable. Lung apices are clear. There is degenerative spondylosis of the spine. Minimal anterior subluxation of C6 on C7 is likely degenerative. No evidence of high-grade central osseous spinal stenosis. There is mild neural foraminal narrowing at lower cervical spine at C5-C6 and C6-C7. Impression: 1. Degenerative spondylosis. 2. No evidence of acute fracture or traumatic subluxation. Electronically signed by: Kishan Hilliard MD (11/05/2017 9:59 AM) [email or web address]
[2017-11-05 11:04] LABS: BASO # 0.1 x10^3/uL (0.0-0.2); BASO % 1 % (0-3); EOS # 0.1 x10^3/uL (0.0-0.7); EOS % 1 % (0-3); HEMATOCRIT 46.3 % (36.0-47.0); HEMOGLOBIN 15.5 g/dL (12.0-15.5); LYMPH # 2.3 x10^3/uL (1.0-4.8); LYMPH % 23 % (24-48); MEAN CORPUSCULAR HEMOGLOBIN 30 pg (25-35); MEAN CORPUSCULAR HGB CONC 33 g/dL (31-37); MEAN CORPUSCULAR VOLUME 90 fL (79-100); MONO # 0.9 x10^3/uL (0.0-1.1); MONO % 9 % (0-9); NEUT # 6.5 x10^3uL (1.8-7.7); NEUT % 65 % (31-73); PLATELET COUNT 373 x10^3/uL (140-400); RED BLOOD COUNT 5.15 x10^6/uL (3.50-5.40); RED CELL DISTRIBUTION WIDTH 13.7 % (11.5-14.5)
[2017-11-05 11:22] LABS: ALBUMIN 3.3 g/dL (3.4-5.0); ALBUMIN/GLOBULIN RATIO 0.9 (1.0-1.7); CREATININE 0.7 mg/dL (0.6-1.0); GFR 80.1; MAGNESIUM 1.8 mg/dL (1.8-2.4); POTASSIUM 3.9 mmol/L (3.5-5.1); TOTAL BILIRUBIN 0.4 mg/dL (0.2-1.0); TOTAL PROTEIN 7.1 g/dL (6.4-8.2)
[2017-11-05 16:02] VITALS: BP 143/71
[2017-11-05] MEDS: risperiDONE 0.25 MG TABLET. PO SCH (19:45)
[2017-11-05] MEDS: MIRTAZAPINE 15 MG TABLET PO SCH (19:46)
--- NOTE | 2017-11-05 20:10 | PDOC ---
Exam Note: Jj Note: Please also refer to the separate dictated note~for this date of service dictated separately.~Patient seen individually. Discussed the patient with Nursing staff reviewed the chart.~Reviewed interim history and current functioning. Reviewed vital signs,~Labs/ Radiology~and current medications noted below. Continue current treatment with the changes noted in the dictated addendum note Assessment: Vital Signs: Vital Signs Date Time Temp Pulse Resp B/P (MAP) Pulse Ox O2 Delivery O2 Flow Rate FiO2 11/05/17 16:02 98.8 84 16 143/71 (95) 98 11/04/17 02:20 Room Air I&O Intake and Output 11/05/17 07:00 Intake Total 320 ml Balance 320 ml Intake Oral 320 ml Labs: Laboratory Tests Test 11/05/17 10:45 White Blood Count 10.0 x10^3/uL (4.0-11.0) Red Blood Count 5.15 x10^6/uL (3.50-5.40) Hemoglobin 15.5 g/dL (12.0-15.5) Hematocrit 46.3 % (36.0-47.0) Mean Corpuscular Volume 90 fL (79-100) Mean Corpuscular Hemoglobin 30 pg (25-35) Mean Corpuscular Hemoglobin Concent 33 g/dL (31-37) Red Cell Distribution Width 13.7 % (11.5-14.5) Platelet Count 373 x10^3/uL (140-400) Neutrophils (%) (Auto) 65 % (31-73) Lymphocytes (%) (Auto) 23 % (24-48) L Monocytes (%) (Auto) 9 % (0-9) Eosinophils (%) (Auto) 1 % (0-3) Basophils (%) (Auto) 1 % (0-3) Neutrophils # (Auto) 6.5 x10^3uL (1.8-7.7) Lymphocytes # (Auto) 2.3 x10^3/uL (1.0-4.8) Monocytes # (Auto) 0.9 x10^3/uL (0.0-1.1) Eosinophils # (Auto) 0.1 x10^3/uL (0.0-0.7) Basophils # (Auto) 0.1 x10^3/uL (0.0-0.2) Sodium Level 142 mmol/L (136-145) Potassium Level 3.9 mmol/L (3.5-5.1) Chloride Level 105 mmol/L (98-107) Carbon Dioxide Level 26 mmol/L (21-32) Anion Gap 11 (6-14) Blood Urea Nitrogen 17 mg/dL (7-20) Creatinine 0.7 mg/dL (0.6-1.0) Estimated GFR (Cockcroft-Gault) 80.1 BUN/Creatinine Ratio 24 (6-20) H Glucose Level 108 mg/dL (70-99) H Calcium Level 9.0 mg/dL (8.5-10.1) Magnesium Level 1.8 mg/dL (1.8-2.4) Total Bilirubin 0.4 mg/dL (0.2-1.0) Aspartate Amino Transferase (AST) 21 U/L (15-37) Alanine Aminotransferase (ALT) 29 U/L (14-59) Alkaline Phosphatase 156 U/L (46-116) H Total Protein 7.1 g/dL (6.4-8.2) Albumin 3.3 g/dL (3.4-5.0) L Albumin/Globulin Ratio 0.9 (1.0-1.7) L Current Medications: Meds: Current Medications Acetaminophen (Tylenol) 650 mg PRN Q6HRS PRN PO PAIN / TEMP Last administered on 11/01/17at 00:33; Start 10/30/17 at 15:30 Multi-Ingredient Ointment (Analgesic [place]) 1 annita PRN QID PRN TP MUSCLE PAIN Last administered on 11/01/17at 00:33; Start 10/30/17 at 15:30 Al Hydroxide/Mg Hydroxide (Mylanta Plus Xs) 15 ml PRN AFTMEALHC PRN PO DYSPEPSIA; Start 10/30/17 at 15:30 Magnesium Hydroxide (Milk Of Magnesia) 2,400 mg PRN QHS PRN PO CONSTIPATION; Start 10/30/17 at 15:30 Quetiapine Fumarate (SEROquel) 12.5 mg BID PO ; Start 10/30/17 at 21:00; Stop 10/30/17 at 21:00; Status DC Info (FLU VACCINE per PROTOCOL) 1 ea 1X ONCE MC ; Start 11/01/17 at 09:00; Stop 11/01/17 at 09:01; Status UNV Pneumococcal Polyvalent Vaccine (Pneumovax 23) 0.5 ml ONCE ONCE VAX IM Last administered on 11/01/17 10:12; Start 11/01/17 at 09:00; Stop 11/01/17 at 09:01; Status DC Influenza Virus Vaccine Quadrival (Fluarix Quad 3776-6859 Syringe) 0.5 ml ONCE ONCE VAX IM Last administered on 11/01/17 10:10; Start 11/01/17 at 09:00; Stop 11/01/17 at 09:01; Status DC Aspirin (Aspirin Enteric Coated) 81 mg DAILY PO Last administered on 11/05/17 08:01; Start 10/31/17 at 09:00 Clopidogrel Bisulfate (Plavix) 75 mg DAILY PO Last administered on 11/05/17 08 :01; Start 10/31/17 at 09:00 Digoxin (Lanoxin) 125 mcg DAILY PO Last administered on 11/05/17 08:01; Start 10/31/17 at 09:00 Diltiazem HCl (Cardizem 24hr Cd) 120 mg DAILY PO Last administered on 08:01; Start 10/31/17 at 09:00 Docusate Sodium (Colace) 100 mg BID PO Last administered on 11/05/17 19:45; Start 10/30/17 at 21:00 Nitroglycerin (Nitrostat) 0.4 mg PRN Q5MIN PRN SL CHEST PAIN; Start 10/30/17 at 18:30 Vitamin D (Vitamin D3) 1,000 unit DAILY PO Last administered on 11/05/17 08:01 ; Start 10/31/17 at 09:00 Losartan Potassium (Cozaar) 25 mg DAILY PO Last administered on 11/05/17 08:00 ; Start 10/31/17 at 09:00 Levothyroxine Sodium (Synthroid) 200 mcg DAILY07 PO Last administered on 06:25; Start 10/31/17 at 07:00 Quetiapine Fumarate (SEROquel) 12.5 mg DAILY PO Last administered on 11/04/17 10:08; Start 10/31/17 at 09:00; Stop 11/04/17 at 19:26; Status DC Quetiapine Fumarate (SEROquel) 25 mg QHS PO Last administered on 11/03/17at 20: 05; Start 10/30/17 at 21:00; Stop 11/04/17 at 17:39; Status DC Sertraline HCl (Zoloft) 25 mg DAILY PO Last administered on 11/05/17at 08:01; Start 11/01/17 at 09:00 Vitamin D (Vitamin D3) 50,000 unit WEEKLY PO Last administered on 11/01/17at 12: 42; Start 11/01/17 at 12:00 Tramadol HCl (Ultram) 50 mg PRN Q6HRS PRN PO PAIN Last administered on at 02:20; Start 11/01/17 at 14:45 Mirtazapine (Remeron) 7.5 mg QHS PO Last administered on 11/04/17at 19:52; Start 11/01/17 at 21:00; Stop 11/05/17 at 19:19; Status DC Quetiapine Fumarate (SEROquel) 37.5 mg QHS PO ; Start 11/04/17 at 21:00; Stop at 21:00; Status DC Risperidone (RisperDAL) 0.25 mg QHS PO Last administered on 11/05/17at 19:45; Start 11/04/17 at 21:00 Mirtazapine (Remeron) 15 mg QHS PO Last administered on 11/05/17at 19:46; Start 11/05/17 at 21:00 Active Scripts Active Reported Naproxen 375 Mg Tablet 375 Mg PO PRN Q8HRS PRN NITROGLYCERIN SubLingual (Nitroglycerin) 0.4 Mg Tab.subl 1 Tab SL PRN Q5MIN PRN MDD 3 tabs Seroquel (Quetiapine Fumarate) 25 Mg Tablet 12.5 Mg PO BID Colace (Docusate Sodium) 100 Mg Capsule 1 Cap PO BID Diltiazem 24HR Cd (Diltiazem Hcl) 120 Mg Cap.er.24h 1 Cap PO DAILY Vitamin D (Cholecalciferol (Vitamin D3)) 1,000 Unit Capsule 1 Cap PO DAILY Synthroid (Levothyroxine Sodium) 200 Mcg Tablet 1 Tab PO DAILY Avapro (Irbesartan) 75 Mg Tablet 75 Mg PO DAILY Digoxin 250 Mcg Tablet 0.125 Mg PO DAILY Aspirin Ec (Aspirin) 81 Mg Tablet. 81 Mg PO DAILY Plavix (Clopidogrel Bisulfate) 75 Mg Tablet 75 Mg PO DAILY I have reviewed the current psychotropics carefully including drug interactions. Risk benefit ratio favors no change other than as noted in my dictated progress note. Diagnosis: Problems: (1) Dementia in Alzheimer's disease with delirium (2) Anxiety disorder (3) Psychosis, atypical SERA THOMAS MD Nov 05, 2017 20:10
--- NOTE | 2017-11-05 23:55 | PN ---
DATE: 11/04/2017 PSYCHIATRIC PROGRESS NOTE This is a late entry of date of service 11/04/2017 covers elements not covered in my initial note of 11/04/2017. I met with the patient in her room the evening of 11/04/2017. HISTORY OF PRESENT ILLNESS: Discussed with social service staff. There seems to be some conflicts within the family about financial and health care, DPOA and social service staff is addressing this. She complains of some head and neck pain, used some tramadol to help with this. CT spine has been ordered per Dr. Lam. She is somewhat withdrawn at times, ate some breakfast and the rest of the day did not eat very much, remains suspicious of her family's intentions regarding her finances, ambulates with a walker. No CV, , pulmonary, eye system symptoms on review. MENTAL STATUS EXAM: Oriented to herself and situation. Speech has some latency, coherent. Abstraction fair, computation is somewhat impaired, language function intact. I met with her at length and she is quite fixated on believing family are trying to take some of her possessions. LABORATORY DATA: Reviewed. IMPRESSION: Psychotic disorder, unspecified; cognitive disorder, unspecified; dementia, early Alzheimer, vascular with depression, delusion. PLAN: Continue Remeron, Zoloft, to change the Seroquel to Risperdal 0.25 mg p.o. at bedtime. Adjust further as clinically indicated. SERA THOMAS MD DR: MEÑO/alexx JOB#: [id number] / [id number]
[2017-11-06] MEDS: LEVOTHYROXINE 100 MCG TABLET PO SCH (05:56)
[2017-11-06 06:28] VITALS: BP 122/94
[2017-11-06] MEDS: DOCUSATE SODIUM 100 MG CAPSULE PO SCH ×2 (08:30→19:30)
[2017-11-06] MEDS: LOSARTAN 25 MG TABLET. PO SCH (08:30)
[2017-11-06] MEDS: SERTRALINE 25 MG TABLET. PO SCH (08:30)
[2017-11-06] MEDS: DIGOXIN 125 MCG TABLET PO SCH (08:31)
[2017-11-06] MEDS: CLOPIDOGREL BISULFATE 75 MG TABLET PO SCH (08:31)
[2017-11-06] MEDS: CHOLECALCIFEROL (VITAMIN D3) 1,000 UNIT TABLET PO SCH (08:31)
[2017-11-06] MEDS: ASPIRIN ENTERIC COATED 81 MG TABLET.DR. PO SCH (08:31)
[2017-11-06 16:48] VITALS: BP 140/79
--- NOTE | 2017-11-06 19:12 | PDOC ---
Exam Note: Jj Note: Please also refer to the separate dictated note~for this date of service dictated separately.~Patient seen individually. Discussed the patient with Nursing staff reviewed the chart.~Reviewed interim history and current functioning. Reviewed vital signs,~Labs/ Radiology~and current medications noted below. Continue current treatment with the changes noted in the dictated addendum note Assessment: Vital Signs: Vital Signs Date Time Temp Pulse Resp B/P (MAP) Pulse Ox O2 Delivery O2 Flow Rate FiO2 11/06/17 16:48 98.2 94 22 140/79 (99) 96 11/06/17 06:28 Room Air I&O Intake and Output 11/06/17 07:00 Intake Total 960 ml Balance 960 ml Intake Oral 960 ml Current Medications: Meds: Current Medications Acetaminophen (Tylenol) 650 mg PRN Q6HRS PRN PO PAIN / TEMP Last administered on 11/01/17at 00:33; Start 10/30/17 at 15:30 Multi-Ingredient Ointment (Analgesic [place]) 1 annita PRN QID PRN TP MUSCLE PAIN Last administered on 11/01/17at 00:33; Start 10/30/17 at 15:30 Al Hydroxide/Mg Hydroxide (Mylanta Plus Xs) 15 ml PRN AFTMEALHC PRN PO DYSPEPSIA; Start 10/30/17 at 15:30 Magnesium Hydroxide (Milk Of Magnesia) 2,400 mg PRN QHS PRN PO CONSTIPATION; Start 10/30/17 at 15:30 Quetiapine Fumarate (SEROquel) 12.5 mg BID PO ; Start 10/30/17 at 21:00; Stop 10/30/17 at 21:00; Status DC Info (FLU VACCINE per PROTOCOL) 1 ea 1X ONCE MC ; Start 11/01/17 at 09:00; Stop 11/01/17 at 09:01; Status UNV Pneumococcal Polyvalent Vaccine (Pneumovax 23) 0.5 ml ONCE ONCE VAX IM Last administered on 11/01/17at 10:12; Start 11/01/17 at 09:00; Stop 11/01/17 at 09:01; Status DC Influenza Virus Vaccine Quadrival (Fluarix Quad [id number] Syringe) 0.5 ml ONCE ONCE VAX IM Last administered on 11/01/17at 10:10; Start 11/01/17 at 09:00; Stop 11/01/17 at 09:01; Status DC Aspirin (Aspirin Enteric Coated) 81 mg DAILY PO Last administered on 11/06/17 08:31; Start 10/31/17 at 09:00 Clopidogrel Bisulfate (Plavix) 75 mg DAILY PO Last administered on 11/06/17 08 :31; Start 10/31/17 at 09:00 Digoxin (Lanoxin) 125 mcg DAILY PO Last administered on 11/06/17 08:31; Start 10/31/17 at 09:00 Diltiazem HCl (Cardizem 24hr Cd) 120 mg DAILY PO Last administered on 08:31; Start 10/31/17 at 09:00 Docusate Sodium (Colace) 100 mg BID PO Last administered on 11/06/17 08:30; Start 10/30/17 at 21:00 Nitroglycerin (Nitrostat) 0.4 mg PRN Q5MIN PRN SL CHEST PAIN; Start 10/30/17 at 18:30 Vitamin D (Vitamin D3) 1,000 unit DAILY PO Last administered on 11/06/17 08:31 ; Start 10/31/17 at 09:00 Losartan Potassium (Cozaar) 25 mg DAILY PO Last administered on 11/06/17 08:30 ; Start 10/31/17 at 09:00 Levothyroxine Sodium (Synthroid) 200 mcg DAILY07 PO Last administered on 05:56; Start 10/31/17 at 07:00 Quetiapine Fumarate (SEROquel) 12.5 mg DAILY PO Last administered on 11/04/17at 10:08; Start 10/31/17 at 09:00; Stop 11/04/17 at 19:26; Status DC Quetiapine Fumarate (SEROquel) 25 mg QHS PO Last administered on 11/03/17 20: 05; Start 10/30/17 at 21:00; Stop 11/04/17 at 17:39; Status DC Sertraline HCl (Zoloft) 25 mg DAILY PO Last administered on 11/06/17 08:30; Start 11/01/17 at 09:00 Vitamin D (Vitamin D3) 50,000 unit WEEKLY PO Last administered on 11/01/17at 12: 42; Start 11/01/17 at 12:00 Tramadol HCl (Ultram) 50 mg PRN Q6HRS PRN PO PAIN Last administered on at 02:20; Start 11/01/17 at 14:45 Mirtazapine (Remeron) 7.5 mg QHS PO Last administered on 11/04/17at 19:52; Start 11/01/17 at 21:00; Stop 11/05/17 at 19:19; Status DC Quetiapine Fumarate (SEROquel) 37.5 mg QHS PO ; Start 11/04/17 at 21:00; Stop at 21:00; Status DC Risperidone (RisperDAL) 0.25 mg QHS PO Last administered on 11/05/17at 19:45; Start 11/04/17 at 21:00 Mirtazapine (Remeron) 15 mg QHS PO Last administered on 11/05/17at 19:46; Start 11/05/17 at 21:00 Olanzapine (ZyPREXA ZYDIS) 2.5 mg PRN Q2HR PRN PO PSYCHOSIS; Start 11/06/17 at 18:15 Active Scripts Active Reported Naproxen 375 Mg Tablet 375 Mg PO PRN Q8HRS PRN NITROGLYCERIN SubLingual (Nitroglycerin) 0.4 Mg Tab.subl 1 Tab SL PRN Q5MIN PRN MDD 3 tabs Seroquel (Quetiapine Fumarate) 25 Mg Tablet 12.5 Mg PO BID Colace (Docusate Sodium) 100 Mg Capsule 1 Cap PO BID Diltiazem 24HR Cd (Diltiazem Hcl) 120 Mg Cap.er.24h 1 Cap PO DAILY Vitamin D (Cholecalciferol (Vitamin D3)) 1,000 Unit Capsule 1 Cap PO DAILY Synthroid (Levothyroxine Sodium) 200 Mcg Tablet 1 Tab PO DAILY Avapro (Irbesartan) 75 Mg Tablet 75 Mg PO DAILY Digoxin 250 Mcg Tablet 0.125 Mg PO DAILY Aspirin Ec (Aspirin) 81 Mg Tablet.dr 81 Mg PO DAILY Plavix (Clopidogrel Bisulfate) 75 Mg Tablet 75 Mg PO DAILY I have reviewed the current psychotropics carefully including drug interactions. Risk benefit ratio favors no change other than as noted in my dictated progress note. Diagnosis: Problems: (1) Dementia in Alzheimer's disease with delirium (2) Anxiety disorder (3) Psychosis, atypical SERA THOMAS MD Nov 06, 2017 19:12
[2017-11-06] MEDS: MIRTAZAPINE 15 MG TABLET PO SCH (19:30)
[2017-11-06] MEDS: risperiDONE 0.25 MG TABLET. PO SCH (19:30)
[2017-11-06] MEDS: traMADol 50 MG TABLET PO PRN (21:48)
--- NOTE | 2017-11-06 23:04 | PN ---
DATE: 11/05/2017 This is a late entry, 11/05/2017, covers the elements not covered in my initial note of 11/05/2017. SUBJECTIVE: I met with the patient evening of 11/05/2017. The patient slept 5-1/4 hours previous evening, did reasonably well in the morning. In the evening, her daughter, Pinky, and visited and she is quite labile in her mood. She was informed earlier in the day that her ex- had an RI and was little more agitated following this. She does attend physical therapy, barricaded herself in her room in the evening, quite dramatic and nursing staff had to assist me in opening the doors so that I could visit with her quite paranoid, suspicious, labile, delusional, belief that people are beating her. REVIEW OF SYSTEMS: No CV, , pulmonary, eye system symptoms on review. Mental status exam despite the above. She is reasonably oriented. Speech coherent, rapid at times. Abstraction fair, computation impaired, language function intact. Mood and affect remains labile. No active suicidal or homicidal ideation. LABORATORY DATA: Reviewed. IMPRESSION: Psychotic disorder, unspecified; bipolar 1 disorder, mixed with psychotic features; cognitive disorder, unspecified versus major neurocognitive disorder; early Alzheimer, vascular with delusions. PLAN: Continue current psychotropics. Seroquel was changed to Risperdal. Maintain Zoloft and Remeron. Consider Depakote as a mood stabilizer. MAN Daron THOMAS MD DR: MEÑO/alexx JOB#: [id number] / [id number]
[2017-11-07] MEDS: ACETAMINOPHEN 325 MG TABLET PO PRN (05:30)
[2017-11-07] MEDS: LEVOTHYROXINE 100 MCG TABLET PO SCH (05:30)
[2017-11-07 06:07] VITALS: BP 132/78
[2017-11-07] MEDS: CHOLECALCIFEROL (VITAMIN D3) 1,000 UNIT TABLET PO SCH (09:52)
[2017-11-07] MEDS: CLOPIDOGREL BISULFATE 75 MG TABLET PO SCH (09:52)
[2017-11-07] MEDS: LOSARTAN 25 MG TABLET. PO SCH (09:52)
[2017-11-07] MEDS: DIGOXIN 125 MCG TABLET PO SCH (09:53)
[2017-11-07] MEDS: SERTRALINE 25 MG TABLET. PO SCH (09:53)
[2017-11-07] MEDS: DOCUSATE SODIUM 100 MG CAPSULE PO SCH ×2 (09:53→19:39)
[2017-11-07] MEDS: ASPIRIN ENTERIC COATED 81 MG TABLET.DR. PO SCH (09:53)
[2017-11-07 15:39] VITALS: BP 117/65
--- NOTE | 2017-11-07 19:39 | PDOC ---
Exam Note: Jj Note: Please also refer to the separate dictated note~for this date of service dictated separately.~Patient seen individually. Discussed the patient with Nursing staff reviewed the chart.~Reviewed interim history and current functioning. Reviewed vital signs,~Labs/ Radiology~and current medications noted below. Continue current treatment with the changes noted in the dictated addendum note Assessment: Vital Signs: Vital Signs Date Time Temp Pulse Resp B/P (MAP) Pulse Ox O2 Delivery O2 Flow Rate FiO2 11/07/17 15:39 97.3 88 20 117/65 (82) 95 11/06/17 22:48 Room Air I&O Intake and Output 11/07/17 07:00 Intake Total 560 ml Balance 560 ml Intake Oral 560 ml # Voids 2 Current Medications: Meds: Current Medications Acetaminophen (Tylenol) 650 mg PRN Q6HRS PRN PO PAIN / TEMP Last administered on 11/07/17at 05:30; Start 10/30/17 at 15:30 Multi-Ingredient Ointment (Analgesic [place]) 1 annita PRN QID PRN TP MUSCLE PAIN Last administered on 11/01/17at 00:33; Start 10/30/17 at 15:30 Al Hydroxide/Mg Hydroxide (Mylanta Plus Xs) 15 ml PRN AFTMEALHC PRN PO DYSPEPSIA; Start 10/30/17 at 15:30 Magnesium Hydroxide (Milk Of Magnesia) 2,400 mg PRN QHS PRN PO CONSTIPATION; Start 10/30/17 at 15:30 Quetiapine Fumarate (SEROquel) 12.5 mg BID PO ; Start 10/30/17 at 21:00; Stop 10/30/17 at 21:00; Status DC Info (FLU VACCINE per PROTOCOL) 1 ea 1X ONCE MC ; Start 11/01/17 at 09:00; Stop 11/01/17 at 09:01; Status UNV Pneumococcal Polyvalent Vaccine (Pneumovax 23) 0.5 ml ONCE ONCE VAX IM Last administered on 11/01/17at 10:12; Start 11/01/17 at 09:00; Stop 11/01/17 at 09:01; Status DC Influenza Virus Vaccine Quadrival (Fluarix Quad [id number] Syringe) 0.5 ml ONCE ONCE VAX IM Last administered on 11/01/17at 10:10; Start 11/01/17 at 09:00; Stop 11/01/17 at 09:01; Status DC Aspirin (Aspirin Enteric Coated) 81 mg DAILY PO Last administered on 11/07/17 09:53; Start 10/31/17 at 09:00 Clopidogrel Bisulfate (Plavix) 75 mg DAILY PO Last administered on 11/07/17 09 :52; Start 10/31/17 at 09:00 Digoxin (Lanoxin) 125 mcg DAILY PO Last administered on 11/07/17 09:53; Start 10/31/17 at 09:00 Diltiazem HCl (Cardizem 24hr Cd) 120 mg DAILY PO Last administered on 09:52; Start 10/31/17 at 09:00 Docusate Sodium (Colace) 100 mg BID PO Last administered on 11/07/17 09:53; Start 10/30/17 at 21:00 Nitroglycerin (Nitrostat) 0.4 mg PRN Q5MIN PRN SL CHEST PAIN; Start 10/30/17 at 18:30 Vitamin D (Vitamin D3) 1,000 unit DAILY PO Last administered on 11/07/17 09:52 ; Start 10/31/17 at 09:00 Losartan Potassium (Cozaar) 25 mg DAILY PO Last administered on 11/07/17 09:52 ; Start 10/31/17 at 09:00 Levothyroxine Sodium (Synthroid) 200 mcg DAILY07 PO Last administered on 05:30; Start 10/31/17 at 07:00 Quetiapine Fumarate (SEROquel) 12.5 mg DAILY PO Last administered on 11/04/17at 10:08; Start 10/31/17 at 09:00; Stop 11/04/17 at 19:26; Status DC Quetiapine Fumarate (SEROquel) 25 mg QHS PO Last administered on 11/03/17 20: 05; Start 10/30/17 at 21:00; Stop 11/04/17 at 17:39; Status DC Sertraline HCl (Zoloft) 25 mg DAILY PO Last administered on 11/07/17 09:53; Start 11/01/17 at 09:00; Stop 11/07/17 at 11:42; Status DC Vitamin D (Vitamin D3) 50,000 unit WEEKLY PO Last administered on 11/01/17at 12: 42; Start 11/01/17 at 12:00 Tramadol HCl (Ultram) 50 mg PRN Q6HRS PRN PO PAIN Last administered on at 21:48; Start 11/01/17 at 14:45 Mirtazapine (Remeron) 7.5 mg QHS PO Last administered on 11/04/17at 19:52; Start 11/01/17 at 21:00; Stop 11/05/17 at 19:19; Status DC Quetiapine Fumarate (SEROquel) 37.5 mg QHS PO ; Start 11/04/17 at 21:00; Stop at 21:00; Status DC Risperidone (RisperDAL) 0.25 mg QHS PO Last administered on 11/06/17at 19:30; Start 11/04/17 at 21:00 Mirtazapine (Remeron) 15 mg QHS PO Last administered on 11/06/17at 19:30; Start 11/05/17 at 21:00 Olanzapine (ZyPREXA ZYDIS) 2.5 mg PRN Q2HR PRN PO PSYCHOSIS; Start 11/06/17 at 18:15 Sertraline HCl (Zoloft) 50 mg DAILY PO ; Start 11/08/17 at 09:00 Active Scripts Active Reported Naproxen 375 Mg Tablet 375 Mg PO PRN Q8HRS PRN NITROGLYCERIN SubLingual (Nitroglycerin) 0.4 Mg Tab.subl 1 Tab SL PRN Q5MIN PRN MDD 3 tabs Seroquel (Quetiapine Fumarate) 25 Mg Tablet 12.5 Mg PO BID Colace (Docusate Sodium) 100 Mg Capsule 1 Cap PO BID Diltiazem 24HR Cd (Diltiazem Hcl) 120 Mg Cap.er.24h 1 Cap PO DAILY Vitamin D (Cholecalciferol (Vitamin D3)) 1,000 Unit Capsule 1 Cap PO DAILY Synthroid (Levothyroxine Sodium) 200 Mcg Tablet 1 Tab PO DAILY Avapro (Irbesartan) 75 Mg Tablet 75 Mg PO DAILY Digoxin 250 Mcg Tablet 0.125 Mg PO DAILY Aspirin Ec (Aspirin) 81 Mg Tablet.dr 81 Mg PO DAILY Plavix (Clopidogrel Bisulfate) 75 Mg Tablet 75 Mg PO DAILY I have reviewed the current psychotropics carefully including drug interactions. Risk benefit ratio favors no change other than as noted in my dictated progress note. Diagnosis: Problems: (1) Dementia in Alzheimer's disease with delirium (2) Anxiety disorder (3) Psychosis, atypical SERA THOMAS MD Nov 07, 2017 19:39
[2017-11-07] MEDS: MIRTAZAPINE 15 MG TABLET PO SCH (19:40)
[2017-11-07] MEDS: risperiDONE 0.25 MG TABLET. PO SCH (19:40)
[2017-11-08 06:05] VITALS: BP 122/61
[2017-11-08] MEDS: LEVOTHYROXINE 100 MCG TABLET PO SCH (06:13)
[2017-11-08] MEDS: DIGOXIN 125 MCG TABLET PO SCH (09:03)
[2017-11-08] MEDS: CLOPIDOGREL BISULFATE 75 MG TABLET PO SCH (09:03)
[2017-11-08] MEDS: LOSARTAN 25 MG TABLET. PO SCH (09:03)
[2017-11-08] MEDS: DOCUSATE SODIUM 100 MG CAPSULE PO SCH ×2 (09:03→20:17)
[2017-11-08] MEDS: CHOLECALCIFEROL (VITAMIN D3) 1,000 UNIT TABLET PO SCH (09:03)
[2017-11-08] MEDS: ASPIRIN ENTERIC COATED 81 MG TABLET.DR. PO SCH (09:04)
[2017-11-08] MEDS: ACETAMINOPHEN 325 MG TABLET PO PRN (09:05)
[2017-11-08] MEDS: CHOLECALCIFEROL (VITAMIN D3) 50,000 UNIT CAPSULE PO SCH (09:05)
[2017-11-08] MEDS: SERTRALINE 50 MG TABLET. PO SCH (09:05)
[2017-11-08 12:29] VITALS: BP 126/65
[2017-11-08 16:11] VITALS: BP 112/56
--- NOTE | 2017-11-08 19:51 | PDOC ---
Exam Note: Jj Note: Please also refer to the separate dictated note~for this date of service dictated separately.~Patient seen individually. Discussed the patient with Nursing staff reviewed the chart.~Reviewed interim history and current functioning. Reviewed vital signs,~Labs/ Radiology~and current medications noted below. Continue current treatment with the changes noted in the dictated addendum note Assessment: Vital Signs: Vital Signs Date Time Temp Pulse Resp B/P (MAP) Pulse Ox O2 Delivery O2 Flow Rate FiO2 11/08/17 16:11 98.5 85 20 112/56 (74) 95 11/06/17 22:48 Room Air I&O Intake and Output 11/08/17 07:00 Intake Total 960 ml Balance 960 ml Intake Oral 960 ml # Voids 2 # Bowel Movements 1 Current Medications: Meds: Current Medications Acetaminophen (Tylenol) 650 mg PRN Q6HRS PRN PO PAIN / TEMP Last administered on 11/08/17at 09:05; Start 10/30/17 at 15:30 Multi-Ingredient Ointment (Analgesic [place]) 1 annita PRN QID PRN TP MUSCLE PAIN Last administered on 11/01/17at 00:33; Start 10/30/17 at 15:30 Al Hydroxide/Mg Hydroxide (Mylanta Plus Xs) 15 ml PRN AFTMEALHC PRN PO DYSPEPSIA; Start 10/30/17 at 15:30 Magnesium Hydroxide (Milk Of Magnesia) 2,400 mg PRN QHS PRN PO CONSTIPATION; Start 10/30/17 at 15:30 Quetiapine Fumarate (SEROquel) 12.5 mg BID PO ; Start 10/30/17 at 21:00; Stop 10/30/17 at 21:00; Status DC Info (FLU VACCINE per PROTOCOL) 1 ea 1X ONCE MC ; Start 11/01/17 at 09:00; Stop 11/01/17 at 09:01; Status UNV Pneumococcal Polyvalent Vaccine (Pneumovax 23) 0.5 ml ONCE ONCE VAX IM Last administered on 11/01/17at 10:12; Start 11/01/17 at 09:00; Stop 11/01/17 at 09:01; Status DC Influenza Virus Vaccine Quadrival (Fluarix Quad 6540-0976 Syringe) 0.5 ml ONCE ONCE VAX IM Last administered on 11/01/17at 10:10; Start 11/01/17 at 09:00; Stop 11/01/17 at 09:01; Status DC Aspirin (Aspirin Enteric Coated) 81 mg DAILY PO Last administered on 11/08/17 09:04; Start 10/31/17 at 09:00 Clopidogrel Bisulfate (Plavix) 75 mg DAILY PO Last administered on 11/08/17 09 :03; Start 10/31/17 at 09:00 Digoxin (Lanoxin) 125 mcg DAILY PO Last administered on 11/08/17 09:03; Start 10/31/17 at 09:00 Diltiazem HCl (Cardizem 24hr Cd) 120 mg DAILY PO Last administered on 09:04; Start 10/31/17 at 09:00 Docusate Sodium (Colace) 100 mg BID PO Last administered on 11/08/17 09:03; Start 10/30/17 at 21:00 Nitroglycerin (Nitrostat) 0.4 mg PRN Q5MIN PRN SL CHEST PAIN; Start 10/30/17 at 18:30 Vitamin D (Vitamin D3) 1,000 unit DAILY PO Last administered on 11/08/17 09:03 ; Start 10/31/17 at 09:00 Losartan Potassium (Cozaar) 25 mg DAILY PO Last administered on 11/08/17 09:03 ; Start 10/31/17 at 09:00 Levothyroxine Sodium (Synthroid) 200 mcg DAILY07 PO Last administered on 06:13; Start 10/31/17 at 07:00 Quetiapine Fumarate (SEROquel) 12.5 mg DAILY PO Last administered on 11/04/17 10:08; Start 10/31/17 at 09:00; Stop 11/04/17 at 19:26; Status DC Quetiapine Fumarate (SEROquel) 25 mg QHS PO Last administered on 11/03/17at 20: 05; Start 10/30/17 at 21:00; Stop 11/04/17 at 17:39; Status DC Sertraline HCl (Zoloft) 25 mg DAILY PO Last administered on 11/07/17at 09:53; Start 11/01/17 at 09:00; Stop 11/07/17 at 11:42; Status DC Vitamin D (Vitamin D3) 50,000 unit WEEKLY PO Last administered on 11/08/17at 09: 05; Start 11/01/17 at 12:00 Tramadol HCl (Ultram) 50 mg PRN Q6HRS PRN PO PAIN Last administered on at 21:48; Start 11/01/17 at 14:45 Mirtazapine (Remeron) 7.5 mg QHS PO Last administered on 11/04/17at 19:52; Start 11/01/17 at 21:00; Stop 11/05/17 at 19:19; Status DC Quetiapine Fumarate (SEROquel) 37.5 mg QHS PO ; Start 11/04/17 at 21:00; Stop at 21:00; Status DC Risperidone (RisperDAL) 0.25 mg QHS PO Last administered on 11/07/17at 19:40; Start 11/04/17 at 21:00 Mirtazapine (Remeron) 15 mg QHS PO Last administered on 11/07/17at 19:40; Start 11/05/17 at 21:00 Olanzapine (ZyPREXA ZYDIS) 2.5 mg PRN Q2HR PRN PO PSYCHOSIS; Start 11/06/17 at 18:15 Sertraline HCl (Zoloft) 50 mg DAILY PO Last administered on 11/08/17at 09:05; Start 11/08/17 at 09:00 Active Scripts Active Reported Naproxen 375 Mg Tablet 375 Mg PO PRN Q8HRS PRN NITROGLYCERIN SubLingual (Nitroglycerin) 0.4 Mg Tab.subl 1 Tab SL PRN Q5MIN PRN MDD 3 tabs Seroquel (Quetiapine Fumarate) 25 Mg Tablet 12.5 Mg PO BID Colace (Docusate Sodium) 100 Mg Capsule 1 Cap PO BID Diltiazem 24HR Cd (Diltiazem Hcl) 120 Mg Cap.er.24h 1 Cap PO DAILY Vitamin D (Cholecalciferol (Vitamin D3)) 1,000 Unit Capsule 1 Cap PO DAILY Synthroid (Levothyroxine Sodium) 200 Mcg Tablet 1 Tab PO DAILY Avapro (Irbesartan) 75 Mg Tablet 75 Mg PO DAILY Digoxin 250 Mcg Tablet 0.125 Mg PO DAILY Aspirin Ec (Aspirin) 81 Mg Tablet.dr 81 Mg PO DAILY Plavix (Clopidogrel Bisulfate) 75 Mg Tablet 75 Mg PO DAILY I have reviewed the current psychotropics carefully including drug interactions. Risk benefit ratio favors no change other than as noted in my dictated progress note. Diagnosis: Problems: (1) Dementia in Alzheimer's disease with delirium (2) Anxiety disorder (3) Psychosis, atypical SERA THOMAS MD Nov 08, 2017 19:51
[2017-11-08] MEDS: MIRTAZAPINE 15 MG TABLET PO SCH (20:18)
[2017-11-08] MEDS: risperiDONE 0.25 MG TABLET. PO SCH (20:18)
[2017-11-09] MEDS: LEVOTHYROXINE 100 MCG TABLET PO SCH (06:21)
[2017-11-09 06:45] VITALS: BP 115/74
--- NOTE | 2017-11-09 08:10 | PN ---
DATE: 11/06/2017 PSYCHIATRIC PROGRESS NOTE This is a late entry for 11/06/2017, covers elements not covered in my initial note of 11/06/2017. Met with the patient in the evening of 11/06/2017. She has been isolative, withdrawn, still somewhat paranoid, stating "nurses treat me rotten." REVIEW OF SYSTEMS: No CV, , pulmonary, eye, ENT system symptoms on review. MENTAL STATUS EXAM: Oriented to herself and situation. Speech coherent, rapid at times. Abstraction fair, computation impaired, language function intact. Attention span short. She is still quite paranoid, delusional better than the day before, not barricading herself like she did the night previous to yesterday. No active suicidal or homicidal ideation. IMPRESSION: Major depressive disorder with psychotic features, psychotic disorder, unspecified; cognitive disorder, unspecified. PLAN: Continue Risperdal, Zoloft, Remeron at current dosage. Remeron was increased to 15 mg at bedtime, maintains. Start Zyprexa p.r.n. Adjust as clinically indicated. MAN Daron THOMAS MD DR: MEÑO/alexx JOB#: [id number] / [id number]
[2017-11-09] MEDS: ASPIRIN ENTERIC COATED 81 MG TABLET.DR. PO SCH (08:56)
--- NOTE | 2017-11-09 09:01 | PN ---
DATE: 11/07/2017 This late entry, 11/07/2017, covers elements not covered in my initial note of 11/07/2017. SUBJECTIVE: I met with the patient the evening of 11/07/2017 and staffed at treatment team meeting with the entire team morning of 11/07/2017. The patient's daughter, Yessi, who is a legal guardian, attended the conference. Sleeping about 6 hours, appetite 60%. Yessi described at length her history of worsening isolation, depression for the last 2 years, sitting in front of TV, doing little else, increasingly paranoid, delusional. We will have psychological testing with Dr. Mays to help clarify objectively some of her mood symptoms and memory deficits. She used to work in housekeeping at a hospital. Reportedly, she is "stews in her thoughts," somewhat obsessive. 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 Deferred to Dr. Lam. TSH is elevated at 18. She has been treated at [facility] by Dr. Kishan Wei M.D. for her thyroid problems. REVIEW OF SYSTEMS: No CV, , pulmonary, eye system symptoms on review. Gait unsteady with walker. MENTAL STATUS EXAM: Oriented to herself and situation. Speech coherent, abstraction fair, computation impaired, language function intact, attention span short. She remains somewhat delusional, anxious, obsessive. LABORATORY DATA: Reviewed. Vitamin D is low and she is on 50,000 units weekly supplement. IMPRESSION: Major depressive disorder with psychotic features; psychotic disorder, unspecified; cognitive disorder, unspecified. PLAN: Increase Zoloft from 25 mg a day to 50 mg a day. Maintain Risperdal, Remeron along with Zyprexa p.r.n. Make further adjustments as clinically indicated. MAN Daron THOMAS MD DR: MEÑO/alexx JOB#: [id number] / [id number]
[2017-11-09 09:04] VITALS: BP 122/71
[2017-11-09] MEDS: DOCUSATE SODIUM 100 MG CAPSULE PO SCH ×2 (09:18→20:01)
[2017-11-09] MEDS: LOSARTAN 25 MG TABLET. PO SCH (09:19)
[2017-11-09] MEDS: CLOPIDOGREL BISULFATE 75 MG TABLET PO SCH (09:20)
[2017-11-09] MEDS: SERTRALINE 50 MG TABLET. PO SCH (09:20)
[2017-11-09] MEDS: CHOLECALCIFEROL (VITAMIN D3) 1,000 UNIT TABLET PO SCH (09:20)
[2017-11-09 12:50] VITALS: BP 132/85
[2017-11-09] MEDS: DIGOXIN 125 MCG TABLET PO SCH (12:51)
[2017-11-09 18:03] VITALS: BP 109/66
[2017-11-09] MEDS ORDERED: traZODone 50 MG TABLET. PO PRN (19:00)
[2017-11-09] MEDS: risperiDONE 0.25 MG TABLET. PO SCH (20:00)
[2017-11-09] MEDS: MIRTAZAPINE 15 MG TABLET PO SCH (20:00)
[2017-11-09] MEDS: traZODone 50 MG TABLET. PO SCH (20:01)
--- NOTE | 2017-11-09 22:28 | PDOC ---
Exam Note: Jj Note: Please also refer to the separate dictated note~for this date of service dictated separately.~Patient seen individually. Discussed the patient with Nursing staff reviewed the chart.~Reviewed interim history and current functioning. Reviewed vital signs,~Labs/ Radiology~and current medications noted below. Continue current treatment with the changes noted in the dictated addendum note Assessment: Vital Signs: Vital Signs Date Time Temp Pulse Resp B/P (MAP) Pulse Ox O2 Delivery O2 Flow Rate FiO2 11/09/17 18:03 97.8 76 22 109/66 (80) 98 11/06/17 22:48 Room Air I&O Intake and Output 11/09/17 07:00 Intake Total 1260 ml Balance 1260 ml Intake Oral 1260 ml # Voids 2 Current Medications: Meds: Current Medications Acetaminophen (Tylenol) 650 mg PRN Q6HRS PRN PO PAIN / TEMP Last administered on 11/08/17at 09:05; Start 10/30/17 at 15:30 Multi-Ingredient Ointment (Analgesic [place]) 1 annita PRN QID PRN TP MUSCLE PAIN Last administered on 11/01/17at 00:33; Start 10/30/17 at 15:30 Al Hydroxide/Mg Hydroxide (Mylanta Plus Xs) 15 ml PRN AFTMEALHC PRN PO DYSPEPSIA; Start 10/30/17 at 15:30 Magnesium Hydroxide (Milk Of Magnesia) 2,400 mg PRN QHS PRN PO CONSTIPATION; Start 10/30/17 at 15:30 Quetiapine Fumarate (SEROquel) 12.5 mg BID PO ; Start 10/30/17 at 21:00; Stop 10/30/17 at 21:00; Status DC Info (FLU VACCINE per PROTOCOL) 1 ea 1X ONCE MC ; Start 11/01/17 at 09:00; Stop 11/01/17 at 09:01; Status UNV Pneumococcal Polyvalent Vaccine (Pneumovax 23) 0.5 ml ONCE ONCE VAX IM Last administered on 11/01/17at 10:12; Start 11/01/17 at 09:00; Stop 11/01/17 at 09:01; Status DC Influenza Virus Vaccine Quadrival (Fluarix Quad [id number] Syringe) 0.5 ml ONCE ONCE VAX IM Last administered on 11/01/17at 10:10; Start 11/01/17 at 09:00; Stop 11/01/17 at 09:01; Status DC Aspirin (Aspirin Enteric Coated) 81 mg DAILY PO Last administered on 11/09/17at 08:56; Start 10/31/17 at 09:00 Clopidogrel Bisulfate (Plavix) 75 mg DAILY PO Last administered on 11/09/17at 09 :20; Start 10/31/17 at 09:00 Digoxin (Lanoxin) 125 mcg DAILY PO Last administered on 11/09/17at 12:51; Start 10/31/17 at 09:00 Diltiazem HCl (Cardizem 24hr Cd) 120 mg DAILY PO Last administered on at 09:18; Start 10/31/17 at 09:00 Docusate Sodium (Colace) 100 mg BID PO Last administered on 11/09/17at 20:01; Start 10/30/17 at 21:00 Nitroglycerin (Nitrostat) 0.4 mg PRN Q5MIN PRN SL CHEST PAIN; Start 10/30/17 at 18:30 Vitamin D (Vitamin D3) 1,000 unit DAILY PO Last administered on 11/09/17at 09:20 ; Start 10/31/17 at 09:00 Losartan Potassium (Cozaar) 25 mg DAILY PO Last administered on 11/09/17at 09:19 ; Start 10/31/17 at 09:00 Levothyroxine Sodium (Synthroid) 200 mcg DAILY07 PO Last administered on at 06:21; Start 10/31/17 at 07:00 Quetiapine Fumarate (SEROquel) 12.5 mg DAILY PO Last administered on 11/04/17at 10:08; Start 10/31/17 at 09:00; Stop 11/04/17 at 19:26; Status DC Quetiapine Fumarate (SEROquel) 25 mg QHS PO Last administered on 11/03/17at 20: 05; Start 10/30/17 at 21:00; Stop 11/04/17 at 17:39; Status DC Sertraline HCl (Zoloft) 25 mg DAILY PO Last administered on 11/07/17at 09:53; Start 11/01/17 at 09:00; Stop 11/07/17 at 11:42; Status DC Vitamin D (Vitamin D3) 50,000 unit WEEKLY PO Last administered on 11/08/17 09: 05; Start 11/01/17 at 12:00 Tramadol HCl (Ultram) 50 mg PRN Q6HRS PRN PO PAIN Last administered on at 21:48; Start 11/01/17 at 14:45 Mirtazapine (Remeron) 7.5 mg QHS PO Last administered on 11/04/17at 19:52; Start 11/01/17 at 21:00; Stop 11/05/17 at 19:19; Status DC Quetiapine Fumarate (SEROquel) 37.5 mg QHS PO ; Start 11/04/17 at 21:00; Stop at 21:00; Status DC Risperidone (RisperDAL) 0.25 mg QHS PO Last administered on 11/09/17at 20:00; Start 11/04/17 at 21:00 Mirtazapine (Remeron) 15 mg QHS PO Last administered on 11/09/17at 20:00; Start 11/05/17 at 21:00 Olanzapine (ZyPREXA ZYDIS) 2.5 mg PRN Q2HR PRN PO PSYCHOSIS; Start 11/06/17 at 18:15 Sertraline HCl (Zoloft) 50 mg DAILY PO Last administered on 11/09/17at 09:20; Start 11/08/17 at 09:00 Trazodone HCl (Desyrel) 50 mg QHS PO Last administered on 11/09/17at 20:01; Start 11/09/17 at 21:00 Trazodone HCl (Desyrel) 50 mg PRN QHS PRN PO INSOMNIA; Start 11/09/17 at 19:00 Active Scripts Active Reported Naproxen 375 Mg Tablet 375 Mg PO PRN Q8HRS PRN NITROGLYCERIN SubLingual (Nitroglycerin) 0.4 Mg Tab.subl 1 Tab SL PRN Q5MIN PRN MDD 3 tabs Seroquel (Quetiapine Fumarate) 25 Mg Tablet 12.5 Mg PO BID Colace (Docusate Sodium) 100 Mg Capsule 1 Cap PO BID Diltiazem 24HR Cd (Diltiazem Hcl) 120 Mg Cap.er.24h 1 Cap PO DAILY Vitamin D (Cholecalciferol (Vitamin D3)) 1,000 Unit Capsule 1 Cap PO DAILY Synthroid (Levothyroxine Sodium) 200 Mcg Tablet 1 Tab PO DAILY Avapro (Irbesartan) 75 Mg Tablet 75 Mg PO DAILY Digoxin 250 Mcg Tablet 0.125 Mg PO DAILY Aspirin Ec (Aspirin) 81 Mg Tablet. 81 Mg PO DAILY Plavix (Clopidogrel Bisulfate) 75 Mg Tablet 75 Mg PO DAILY I have reviewed the current psychotropics carefully including drug interactions. Risk benefit ratio favors no change other than as noted in my dictated progress note. Diagnosis: Problems: (1) Dementia in Alzheimer's disease with delirium (2) Anxiety disorder (3) Psychosis, atypical SERA THOMAS MD Nov 09, 2017 22:28
[2017-11-10] MEDS: LEVOTHYROXINE 100 MCG TABLET PO SCH (06:15)
[2017-11-10 06:36] VITALS: BP 108/64
[2017-11-10] MEDS: SERTRALINE 50 MG TABLET. PO SCH (08:25)
[2017-11-10] MEDS: CHOLECALCIFEROL (VITAMIN D3) 1,000 UNIT TABLET PO SCH (08:25)
[2017-11-10] MEDS: DOCUSATE SODIUM 100 MG CAPSULE PO SCH ×2 (08:25→19:47)
[2017-11-10] MEDS: CLOPIDOGREL BISULFATE 75 MG TABLET PO SCH (08:25)
[2017-11-10] MEDS: ASPIRIN ENTERIC COATED 81 MG TABLET.DR. PO SCH (08:25)
[2017-11-10] MEDS: LOSARTAN 25 MG TABLET. PO SCH (08:26)
[2017-11-10] MEDS: DIGOXIN 125 MCG TABLET PO SCH (08:26)
[2017-11-10 08:27] VITALS: BP 146/82
[2017-11-10 16:02] VITALS: BP 115/71
[2017-11-10] MEDS: traZODone 50 MG TABLET. PO SCH (19:46)
[2017-11-10] MEDS: MIRTAZAPINE 15 MG TABLET PO SCH (19:47)
[2017-11-10] MEDS: risperiDONE 0.25 MG TABLET. PO SCH (19:47)
--- NOTE | 2017-11-10 20:08 | PDOC ---
Exam Note: Jj Note: Please also refer to the separate dictated note~for this date of service dictated separately.~Patient seen individually. Discussed the patient with Nursing staff reviewed the chart.~Reviewed interim history and current functioning. Reviewed vital signs,~Labs/ Radiology~and current medications noted below. Continue current treatment with the changes noted in the dictated addendum note Assessment: Vital Signs: Vital Signs Date Time Temp Pulse Resp B/P (MAP) Pulse Ox O2 Delivery O2 Flow Rate FiO2 11/10/17 16:02 98.9 81 18 115/71 (86) 96 11/06/17 22:48 Room Air I&O Intake and Output 11/10/17 07:00 Intake Total 840 ml Balance 840 ml Intake Oral 840 ml Current Medications: Meds: Current Medications Acetaminophen (Tylenol) 650 mg PRN Q6HRS PRN PO PAIN / TEMP Last administered on 11/08/17at 09:05; Start 10/30/17 at 15:30 Multi-Ingredient Ointment (Analgesic [place]) 1 annita PRN QID PRN TP MUSCLE PAIN Last administered on 11/01/17at 00:33; Start 10/30/17 at 15:30 Al Hydroxide/Mg Hydroxide (Mylanta Plus Xs) 15 ml PRN AFTMEALHC PRN PO DYSPEPSIA; Start 10/30/17 at 15:30 Magnesium Hydroxide (Milk Of Magnesia) 2,400 mg PRN QHS PRN PO CONSTIPATION; Start 10/30/17 at 15:30 Quetiapine Fumarate (SEROquel) 12.5 mg BID PO ; Start 10/30/17 at 21:00; Stop 10/30/17 at 21:00; Status DC Info (FLU VACCINE per PROTOCOL) 1 ea 1X ONCE MC ; Start 11/01/17 at 09:00; Stop 11/01/17 at 09:01; Status UNV Pneumococcal Polyvalent Vaccine (Pneumovax 23) 0.5 ml ONCE ONCE VAX IM Last administered on 11/01/17at 10:12; Start 11/01/17 at 09:00; Stop 11/01/17 at 09:01; Status DC Influenza Virus Vaccine Quadrival (Fluarix Quad [id number] Syringe) 0.5 ml ONCE ONCE VAX IM Last administered on 11/01/17at 10:10; Start 11/01/17 at 09:00; Stop 11/01/17 at 09:01; Status DC Aspirin (Aspirin Enteric Coated) 81 mg DAILY PO Last administered on 11/10/17 08:25; Start 10/31/17 at 09:00 Clopidogrel Bisulfate (Plavix) 75 mg DAILY PO Last administered on 11/10/17at 08 :25; Start 10/31/17 at 09:00 Digoxin (Lanoxin) 125 mcg DAILY PO Last administered on 11/10/17 08:26; Start 10/31/17 at 09:00 Diltiazem HCl (Cardizem 24hr Cd) 120 mg DAILY PO Last administered on 08:26; Start 10/31/17 at 09:00 Docusate Sodium (Colace) 100 mg BID PO Last administered on 11/10/17at 19:47; Start 10/30/17 at 21:00 Nitroglycerin (Nitrostat) 0.4 mg PRN Q5MIN PRN SL CHEST PAIN; Start 10/30/17 at 18:30 Vitamin D (Vitamin D3) 1,000 unit DAILY PO Last administered on 11/10/17 08:25 ; Start 10/31/17 at 09:00 Losartan Potassium (Cozaar) 25 mg DAILY PO Last administered on 11/10/17 08:26 ; Start 10/31/17 at 09:00 Levothyroxine Sodium (Synthroid) 200 mcg DAILY07 PO Last administered on at 06:15; Start 10/31/17 at 07:00 Quetiapine Fumarate (SEROquel) 12.5 mg DAILY PO Last administered on 11/04/17at 10:08; Start 10/31/17 at 09:00; Stop 11/04/17 at 19:26; Status DC Quetiapine Fumarate (SEROquel) 25 mg QHS PO Last administered on 11/03/17at 20: 05; Start 10/30/17 at 21:00; Stop 11/04/17 at 17:39; Status DC Sertraline HCl (Zoloft) 25 mg DAILY PO Last administered on 11/07/17at 09:53; Start 11/01/17 at 09:00; Stop 11/07/17 at 11:42; Status DC Vitamin D (Vitamin D3) 50,000 unit WEEKLY PO Last administered on 11/08/17at 09: 05; Start 11/01/17 at 12:00 Tramadol HCl (Ultram) 50 mg PRN Q6HRS PRN PO PAIN Last administered on at 21:48; Start 11/01/17 at 14:45 Mirtazapine (Remeron) 7.5 mg QHS PO Last administered on 11/04/17at 19:52; Start 11/01/17 at 21:00; Stop 11/05/17 at 19:19; Status DC Quetiapine Fumarate (SEROquel) 37.5 mg QHS PO ; Start 11/04/17 at 21:00; Stop at 21:00; Status DC Risperidone (RisperDAL) 0.25 mg QHS PO Last administered on 11/10/17at 19:47; Start 11/04/17 at 21:00 Mirtazapine (Remeron) 15 mg QHS PO Last administered on 11/10/17at 19:47; Start 11/05/17 at 21:00 Olanzapine (ZyPREXA ZYDIS) 2.5 mg PRN Q2HR PRN PO PSYCHOSIS; Start 11/06/17 at 18:15 Sertraline HCl (Zoloft) 50 mg DAILY PO Last administered on 11/10/17at 08:25; Start 11/08/17 at 09:00 Trazodone HCl (Desyrel) 50 mg QHS PO Last administered on 11/10/17at 19:46; Start 11/09/17 at 21:00 Trazodone HCl (Desyrel) 50 mg PRN QHS PRN PO INSOMNIA; Start 11/09/17 at 19:00 Active Scripts Active Reported Naproxen 375 Mg Tablet 375 Mg PO PRN Q8HRS PRN NITROGLYCERIN SubLingual (Nitroglycerin) 0.4 Mg Tab.subl 1 Tab SL PRN Q5MIN PRN MDD 3 tabs Seroquel (Quetiapine Fumarate) 25 Mg Tablet 12.5 Mg PO BID Colace (Docusate Sodium) 100 Mg Capsule 1 Cap PO BID Diltiazem 24HR Cd (Diltiazem Hcl) 120 Mg Cap.er.24h 1 Cap PO DAILY Vitamin D (Cholecalciferol (Vitamin D3)) 1,000 Unit Capsule 1 Cap PO DAILY Synthroid (Levothyroxine Sodium) 200 Mcg Tablet 1 Tab PO DAILY Avapro (Irbesartan) 75 Mg Tablet 75 Mg PO DAILY Digoxin 250 Mcg Tablet 0.125 Mg PO DAILY Aspirin Ec (Aspirin) 81 Mg Tablet.dr 81 Mg PO DAILY Plavix (Clopidogrel Bisulfate) 75 Mg Tablet 75 Mg PO DAILY I have reviewed the current psychotropics carefully including drug interactions. Risk benefit ratio favors no change other than as noted in my dictated progress note. Diagnosis: Problems: (1) Dementia in Alzheimer's disease with delirium (2) Anxiety disorder (3) Psychosis, atypical SERA THOMAS MD Nov 10, 2017 20:08
--- NOTE | 2017-11-10 22:49 | PN ---
DATE: 11/08/2017 This late entry for 11/08/2017 covers elements not covered in my initial note of 11/08/2017. SUBJECTIVE: I met with the patient in the evening of 11/08/2017. Overall, the patient has been less paranoid and delusional. She had 2 sets of visitors including Yessi, her court-appointed guardian who is her daughter. Spends much time in her room. Family visited from [place]. She has been more pleasant, cooperative. REVIEW OF SYSTEMS: No CV, , pulmonary, eye system symptoms on review. MENTAL STATUS EXAM: Oriented to herself and situation. Speech has some latency, coherent. Abstraction fair, computation impaired, language function intact, attention span short. Mood and affect, lability is improved. LABORATORY DATA: Reviewed. IMPRESSION: Bipolar 1 disorder, mixed with psychotic features; cognitive disorder, unspecified. PLAN: Continue psychotropics mentioned in my initial note, Risperdal, Zoloft, Remeron, along with Zyprexa p.r.n.. We will have psychological testing completed with Dr. Mays. Consider Depakote as a mood stabilizer. MAN Daron THOMAS MD DR: MEÑO/alexx JOB#: [id number] / [id number]
--- NOTE | 2017-11-10 23:12 | PN ---
DATE: 11/09/2017 This is a late entry of 11/09/2017 covers elements not covered in my initial note of 11/09/2017. SUBJECTIVE: I met with the patient in the evening of 11/09/2017 in her room. She slept 4 hours previous evening. We will start trazodone 50 mg at bedtime, may repeat x 1 to assist with this. She is also on Remeron 15 mg at bedtime. REVIEW OF SYSTEMS: No CV, , pulmonary, eye, ENT system symptoms on review. She did well last evening and during the day on 11/09/2017, restless in the shower, wears two pull ups and delusional about her daughter Yessi, who is her guardian, addressed this with her. MENTAL STATUS EXAM: Oriented to herself and situation. Speech coherent, abstraction fair, computation impaired, language function intact. Attention span somewhat short. Mood and affect somewhat anxious, labile at times. No suicidal or homicidal ideation. Seems much less psychotic than she was a few days back prior to the Risperdal. LABORATORY DATA: Reviewed. IMPRESSION: Psychotic disorder, unspecified; history of major depressive disorder with psychotic features; cognitive disorder, unspecified. PLAN: Psychological testing is awaited. Continue current psychotropics with changes noted above. SERA THOMAS MD DR: MEÑO/alexx JOB#: [id number] / [id number]
[2017-11-11] MEDS: LEVOTHYROXINE 100 MCG TABLET PO SCH (05:53)
[2017-11-11 06:15] VITALS: BP 145/78
[2017-11-11 07:40] LABS: BASO # 0.1 x10^3/uL (0.0-0.2); BASO % 1 % (0-3); EOS # 0.4 x10^3/uL (0.0-0.7); EOS % 4 % (0-3); HEMATOCRIT 45.7 % (36.0-47.0); HEMOGLOBIN 15.2 g/dL (12.0-15.5); LYMPH % 34 % (24-48); MEAN CORPUSCULAR HEMOGLOBIN 30 pg (25-35); MEAN CORPUSCULAR HGB CONC 33 g/dL (31-37); MEAN CORPUSCULAR VOLUME 90 fL (79-100); MONO # 0.9 x10^3/uL (0.0-1.1); MONO % 11 % (0-9); NEUT # 4.4 x10^3uL (1.8-7.7); NEUT % 50 % (31-73); PLATELET COUNT 338 x10^3/uL (140-400); RED BLOOD COUNT 5.06 x10^6/uL (3.50-5.40); RED CELL DISTRIBUTION WIDTH 13.5 % (11.5-14.5); WHITE BLOOD COUNT 8.8 x10^3/uL (4.0-11.0)
[2017-11-11 08:03] LABS: ALBUMIN 3.2 g/dL (3.4-5.0); ALBUMIN/GLOBULIN RATIO 0.8 (1.0-1.7); CALCIUM 8.7 mg/dL (8.5-10.1); CREATININE 0.6 mg/dL (0.6-1.0); GFR 95.7; POTASSIUM 3.9 mmol/L (3.5-5.1); TOTAL BILIRUBIN 0.5 mg/dL (0.2-1.0); TOTAL PROTEIN 7.1 g/dL (6.4-8.2)
[2017-11-11] MEDS: ASPIRIN ENTERIC COATED 81 MG TABLET.DR. PO SCH (09:00)
[2017-11-11] MEDS: DOCUSATE SODIUM 100 MG CAPSULE PO SCH ×2 (09:01→20:05)
[2017-11-11] MEDS: LOSARTAN 25 MG TABLET. PO SCH (09:03)
[2017-11-11] MEDS: SERTRALINE 50 MG TABLET. PO SCH (09:04)
[2017-11-11] MEDS: CHOLECALCIFEROL (VITAMIN D3) 1,000 UNIT TABLET PO SCH (09:04)
[2017-11-11] MEDS: CLOPIDOGREL BISULFATE 75 MG TABLET PO SCH (09:04)
[2017-11-11] MEDS: DIGOXIN 125 MCG TABLET PO SCH (09:04)
[2017-11-11] MEDS: ACETAMINOPHEN 325 MG TABLET PO PRN (09:11)
[2017-11-11 16:00] VITALS: BP 106/70
--- NOTE | 2017-11-11 20:00 | PDOC ---
Exam Note: Jj Note: Please also refer to the separate dictated note~for this date of service dictated separately.~Patient seen individually. Discussed the patient with Nursing staff reviewed the chart.~Reviewed interim history and current functioning. Reviewed vital signs,~Labs/ Radiology~and current medications noted below. Continue current treatment with the changes noted in the dictated addendum note Assessment: Vital Signs: Vital Signs Date Time Temp Pulse Resp B/P (MAP) Pulse Ox O2 Delivery O2 Flow Rate FiO2 11/11/17 16:00 97.6 77 16 106/70 (82) 95 11/06/17 22:48 Room Air I&O Intake and Output 11/11/17 07:00 Intake Total 120 ml Balance 120 ml Intake Oral 120 ml # Bowel Movements 1 Labs: Laboratory Tests Test 11/11/17 07:21 White Blood Count 8.8 x10^3/uL (4.0-11.0) Red Blood Count 5.06 x10^6/uL (3.50-5.40) Hemoglobin 15.2 g/dL (12.0-15.5) Hematocrit 45.7 % (36.0-47.0) Mean Corpuscular Volume 90 fL (79-100) Mean Corpuscular Hemoglobin 30 pg (25-35) Mean Corpuscular Hemoglobin Concent 33 g/dL (31-37) Red Cell Distribution Width 13.5 % (11.5-14.5) Platelet Count 338 x10^3/uL (140-400) Neutrophils (%) (Auto) 50 % (31-73) Lymphocytes (%) (Auto) 34 % (24-48) Monocytes (%) (Auto) 11 % (0-9) H Eosinophils (%) (Auto) 4 % (0-3) H Basophils (%) (Auto) 1 % (0-3) Neutrophils # (Auto) 4.4 x10^3uL (1.8-7.7) Lymphocytes # (Auto) 3.0 x10^3/uL (1.0-4.8) Monocytes # (Auto) 0.9 x10^3/uL (0.0-1.1) Eosinophils # (Auto) 0.4 x10^3/uL (0.0-0.7) Basophils # (Auto) 0.1 x10^3/uL (0.0-0.2) Sodium Level 139 mmol/L (136-145) Potassium Level 3.9 mmol/L (3.5-5.1) Chloride Level 103 mmol/L (98-107) Carbon Dioxide Level 28 mmol/L (21-32) Anion Gap 8 (6-14) Blood Urea Nitrogen 15 mg/dL (7-20) Creatinine 0.6 mg/dL (0.6-1.0) Estimated GFR (Cockcroft-Gault) 95.7 BUN/Creatinine Ratio 25 (6-20) H Glucose Level 101 mg/dL (70-99) H Calcium Level 8.7 mg/dL (8.5-10.1) Magnesium Level 2.0 mg/dL (1.8-2.4) Total Bilirubin 0.5 mg/dL (0.2-1.0) Aspartate Amino Transferase (AST) 19 U/L (15-37) Alanine Aminotransferase (ALT) 22 U/L (14-59) Alkaline Phosphatase 151 U/L (46-116) H Total Protein 7.1 g/dL (6.4-8.2) Albumin 3.2 g/dL (3.4-5.0) L Albumin/Globulin Ratio 0.8 (1.0-1.7) L Current Medications: Meds: Current Medications Acetaminophen (Tylenol) 650 mg PRN Q6HRS PRN PO PAIN / TEMP Last administered on 11/11/17at 09:11; Start 10/30/17 at 15:30 Multi-Ingredient Ointment (Analgesic [place]) 1 annita PRN QID PRN TP MUSCLE PAIN Last administered on 11/01/17at 00:33; Start 10/30/17 at 15:30 Al Hydroxide/Mg Hydroxide (Mylanta Plus Xs) 15 ml PRN AFTMEALHC PRN PO DYSPEPSIA; Start 10/30/17 at 15:30 Magnesium Hydroxide (Milk Of Magnesia) 2,400 mg PRN QHS PRN PO CONSTIPATION; Start 10/30/17 at 15:30 Quetiapine Fumarate (SEROquel) 12.5 mg BID PO ; Start 10/30/17 at 21:00; Stop 10/30/17 at 21:00; Status DC Info (FLU VACCINE per PROTOCOL) 1 ea 1X ONCE MC ; Start 11/01/17 at 09:00; Stop 11/01/17 at 09:01; Status UNV Pneumococcal Polyvalent Vaccine (Pneumovax 23) 0.5 ml ONCE ONCE VAX IM Last administered on 11/01/17 10:12; Start 11/01/17 at 09:00; Stop 11/01/17 at 09:01; Status DC Influenza Virus Vaccine Quadrival (Fluarix Quad [id number] Syringe) 0.5 ml ONCE ONCE VAX IM Last administered on 11/01/17 10:10; Start 11/01/17 at 09:00; Stop 11/01/17 at 09:01; Status DC Aspirin (Aspirin Enteric Coated) 81 mg DAILY PO Last administered on 11/11/17 09:00; Start 10/31/17 at 09:00 Clopidogrel Bisulfate (Plavix) 75 mg DAILY PO Last administered on 11/11/17 09 :04; Start 10/31/17 at 09:00 Digoxin (Lanoxin) 125 mcg DAILY PO Last administered on 11/11/17 09:04; Start 10/31/17 at 09:00 Diltiazem HCl (Cardizem 24hr Cd) 120 mg DAILY PO Last administered on 09:01; Start 10/31/17 at 09:00 Docusate Sodium (Colace) 100 mg BID PO Last administered on 11/11/17 09:01; Start 10/30/17 at 21:00 Nitroglycerin (Nitrostat) 0.4 mg PRN Q5MIN PRN SL CHEST PAIN; Start 10/30/17 at 18:30 Vitamin D (Vitamin D3) 1,000 unit DAILY PO Last administered on 11/11/17at 09:04 ; Start 10/31/17 at 09:00 Losartan Potassium (Cozaar) 25 mg DAILY PO Last administered on 11/11/17 09:03 ; Start 10/31/17 at 09:00 Levothyroxine Sodium (Synthroid) 200 mcg DAILY07 PO Last administered on at 05:53; Start 10/31/17 at 07:00 Quetiapine Fumarate (SEROquel) 12.5 mg DAILY PO Last administered on 11/04/17 10:08; Start 10/31/17 at 09:00; Stop 11/04/17 at 19:26; Status DC Quetiapine Fumarate (SEROquel) 25 mg QHS PO Last administered on 11/03/17 20: 05; Start 10/30/17 at 21:00; Stop 11/04/17 at 17:39; Status DC Sertraline HCl (Zoloft) 25 mg DAILY PO Last administered on 11/07/17at 09:53; Start 11/01/17 at 09:00; Stop 11/07/17 at 11:42; Status DC Vitamin D (Vitamin D3) 50,000 unit WEEKLY PO Last administered on 11/08/17at 09: 05; Start 11/01/17 at 12:00 Tramadol HCl (Ultram) 50 mg PRN Q6HRS PRN PO PAIN Last administered on at 21:48; Start 11/01/17 at 14:45 Mirtazapine (Remeron) 7.5 mg QHS PO Last administered on 11/04/17at 19:52; Start 11/01/17 at 21:00; Stop 11/05/17 at 19:19; Status DC Quetiapine Fumarate (SEROquel) 37.5 mg QHS PO ; Start 11/04/17 at 21:00; Stop at 21:00; Status DC Risperidone (RisperDAL) 0.25 mg QHS PO Last administered on 11/10/17at 19:47; Start 11/04/17 at 21:00 Mirtazapine (Remeron) 15 mg QHS PO Last administered on 11/10/17at 19:47; Start 11/05/17 at 21:00 Olanzapine (ZyPREXA ZYDIS) 2.5 mg PRN Q2HR PRN PO PSYCHOSIS; Start 11/06/17 at 18:15 Sertraline HCl (Zoloft) 50 mg DAILY PO Last administered on 11/11/17at 09:04; Start 11/08/17 at 09:00 Trazodone HCl (Desyrel) 50 mg QHS PO Last administered on 11/10/17at 19:46; Start 11/09/17 at 21:00 Trazodone HCl (Desyrel) 50 mg PRN QHS PRN PO INSOMNIA; Start 11/09/17 at 19:00 Active Scripts Active Reported Naproxen 375 Mg Tablet 375 Mg PO PRN Q8HRS PRN NITROGLYCERIN SubLingual (Nitroglycerin) 0.4 Mg Tab.subl 1 Tab SL PRN Q5MIN PRN MDD 3 tabs Seroquel (Quetiapine Fumarate) 25 Mg Tablet 12.5 Mg PO BID Colace (Docusate Sodium) 100 Mg Capsule 1 Cap PO BID Diltiazem 24HR Cd (Diltiazem Hcl) 120 Mg Cap.er.24h 1 Cap PO DAILY Vitamin D (Cholecalciferol (Vitamin D3)) 1,000 Unit Capsule 1 Cap PO DAILY Synthroid (Levothyroxine Sodium) 200 Mcg Tablet 1 Tab PO DAILY Avapro (Irbesartan) 75 Mg Tablet 75 Mg PO DAILY Digoxin 250 Mcg Tablet 0.125 Mg PO DAILY Aspirin Ec (Aspirin) 81 Mg Tablet.dr 81 Mg PO DAILY Plavix (Clopidogrel Bisulfate) 75 Mg Tablet 75 Mg PO DAILY I have reviewed the current psychotropics carefully including drug interactions. Risk benefit ratio favors no change other than as noted in my dictated progress note. Diagnosis: Problems: (1) Dementia in Alzheimer's disease with delirium (2) Anxiety disorder (3) Psychosis, atypical SERA THOMAS MD Nov 11, 2017 19:59
[2017-11-11] MEDS: traZODone 50 MG TABLET. PO SCH (20:04)
[2017-11-11] MEDS: risperiDONE 0.25 MG TABLET. PO SCH (20:04)
[2017-11-11] MEDS: MIRTAZAPINE 15 MG TABLET PO SCH (20:05)
[2017-11-12 06:11] VITALS: BP 150/80
[2017-11-12] MEDS: LEVOTHYROXINE 100 MCG TABLET PO SCH (06:14)
[2017-11-12] MEDS: ASPIRIN ENTERIC COATED 81 MG TABLET.DR. PO SCH (09:11)
[2017-11-12] MEDS: DOCUSATE SODIUM 100 MG CAPSULE PO SCH ×2 (09:11→19:25)
[2017-11-12] MEDS: CLOPIDOGREL BISULFATE 75 MG TABLET PO SCH (09:11)
[2017-11-12] MEDS: SERTRALINE 50 MG TABLET. PO SCH (09:11)
[2017-11-12] MEDS: DIGOXIN 125 MCG TABLET PO SCH (09:11)
[2017-11-12] MEDS: LOSARTAN 25 MG TABLET. PO SCH (09:11)
[2017-11-12] MEDS: CHOLECALCIFEROL (VITAMIN D3) 1,000 UNIT TABLET PO SCH (09:11)
[2017-11-12 16:34] VITALS: BP 116/86
[2017-11-12] MEDS: traZODone 50 MG TABLET. PO SCH (19:25)
[2017-11-12] MEDS: MIRTAZAPINE 15 MG TABLET PO SCH (19:25)
[2017-11-12] MEDS: risperiDONE 0.25 MG TABLET. PO SCH (19:30)
--- NOTE | 2017-11-12 20:00 | PDOC ---
Exam Note: Jj Note: Please also refer to the separate dictated note~for this date of service dictated separately.~Patient seen individually. Discussed the patient with Nursing staff reviewed the chart.~Reviewed interim history and current functioning. Reviewed vital signs,~Labs/ Radiology~and current medications noted below. Continue current treatment with the changes noted in the dictated addendum note Assessment: Vital Signs: Vital Signs Date Time Temp Pulse Resp B/P (MAP) Pulse Ox O2 Delivery O2 Flow Rate FiO2 11/12/17 16:34 98.3 80 20 116/86 (96) 96 11/06/17 22:48 Room Air I&O Intake and Output 11/12/17 07:00 Intake Total 240 ml Balance 240 ml Intake Oral 240 ml # Bowel Movements 1 Current Medications: Meds: Current Medications Acetaminophen (Tylenol) 650 mg PRN Q6HRS PRN PO PAIN / TEMP Last administered on 11/11/17at 09:11; Start 10/30/17 at 15:30 Multi-Ingredient Ointment (Analgesic [place]) 1 annita PRN QID PRN TP MUSCLE PAIN Last administered on 11/01/17at 00:33; Start 10/30/17 at 15:30 Al Hydroxide/Mg Hydroxide (Mylanta Plus Xs) 15 ml PRN AFTMEALHC PRN PO DYSPEPSIA; Start 10/30/17 at 15:30 Magnesium Hydroxide (Milk Of Magnesia) 2,400 mg PRN QHS PRN PO CONSTIPATION; Start 10/30/17 at 15:30 Quetiapine Fumarate (SEROquel) 12.5 mg BID PO ; Start 10/30/17 at 21:00; Stop 10/30/17 at 21:00; Status DC Info (FLU VACCINE per PROTOCOL) 1 ea 1X ONCE MC ; Start 11/01/17 at 09:00; Stop 11/01/17 at 09:01; Status UNV Pneumococcal Polyvalent Vaccine (Pneumovax 23) 0.5 ml ONCE ONCE VAX IM Last administered on 11/01/17at 10:12; Start 11/01/17 at 09:00; Stop 11/01/17 at 09:01; Status DC Influenza Virus Vaccine Quadrival (Fluarix Quad [id number] Syringe) 0.5 ml ONCE ONCE VAX IM Last administered on 11/01/17at 10:10; Start 11/01/17 at 09:00; Stop 11/01/17 at 09:01; Status DC Aspirin (Aspirin Enteric Coated) 81 mg DAILY PO Last administered on 11/12/17 09:11; Start 10/31/17 at 09:00 Clopidogrel Bisulfate (Plavix) 75 mg DAILY PO Last administered on 11/12/17 09 :11; Start 10/31/17 at 09:00 Digoxin (Lanoxin) 125 mcg DAILY PO Last administered on 11/12/17 09:11; Start 10/31/17 at 09:00 Diltiazem HCl (Cardizem 24hr Cd) 120 mg DAILY PO Last administered on 09:11; Start 10/31/17 at 09:00 Docusate Sodium (Colace) 100 mg BID PO Last administered on 11/12/17 19:25; Start 10/30/17 at 21:00 Nitroglycerin (Nitrostat) 0.4 mg PRN Q5MIN PRN SL CHEST PAIN; Start 10/30/17 at 18:30 Vitamin D (Vitamin D3) 1,000 unit DAILY PO Last administered on 11/12/17 09:11 ; Start 10/31/17 at 09:00 Losartan Potassium (Cozaar) 25 mg DAILY PO Last administered on 11/12/17 09:11 ; Start 10/31/17 at 09:00 Levothyroxine Sodium (Synthroid) 200 mcg DAILY07 PO Last administered on 06:14; Start 10/31/17 at 07:00 Quetiapine Fumarate (SEROquel) 12.5 mg DAILY PO Last administered on 11/04/17at 10:08; Start 10/31/17 at 09:00; Stop 11/04/17 at 19:26; Status DC Quetiapine Fumarate (SEROquel) 25 mg QHS PO Last administered on 11/03/17at 20: 05; Start 10/30/17 at 21:00; Stop 11/04/17 at 17:39; Status DC Sertraline HCl (Zoloft) 25 mg DAILY PO Last administered on 11/07/17at 09:53; Start 11/01/17 at 09:00; Stop 11/07/17 at 11:42; Status DC Vitamin D (Vitamin D3) 50,000 unit WEEKLY PO Last administered on 11/08/17at 09: 05; Start 11/01/17 at 12:00 Tramadol HCl (Ultram) 50 mg PRN Q6HRS PRN PO PAIN Last administered on at 21:48; Start 11/01/17 at 14:45 Mirtazapine (Remeron) 7.5 mg QHS PO Last administered on 11/04/17at 19:52; Start 11/01/17 at 21:00; Stop 11/05/17 at 19:19; Status DC Quetiapine Fumarate (SEROquel) 37.5 mg QHS PO ; Start 11/04/17 at 21:00; Stop at 21:00; Status DC Risperidone (RisperDAL) 0.25 mg QHS PO Last administered on 11/11/17at 20:04; Start 11/04/17 at 21:00; Stop 11/12/17 at 18:35; Status DC Mirtazapine (Remeron) 15 mg QHS PO Last administered on 11/12/17at 19:25; Start 11/05/17 at 21:00 Olanzapine (ZyPREXA ZYDIS) 2.5 mg PRN Q2HR PRN PO PSYCHOSIS; Start 11/06/17 at 18:15 Sertraline HCl (Zoloft) 50 mg DAILY PO Last administered on 11/12/17at 09:11; Start 11/08/17 at 09:00 Trazodone HCl (Desyrel) 50 mg QHS PO Last administered on 11/12/17at 19:25; Start 11/09/17 at 21:00 Trazodone HCl (Desyrel) 50 mg PRN QHS PRN PO INSOMNIA; Start 11/09/17 at 19:00 Risperidone (RisperDAL) 0.375 mg QHS PO Last administered on 11/12/17at 19:30; Start 11/12/17 at 21:00 Active Scripts Active Reported Naproxen 375 Mg Tablet 375 Mg PO PRN Q8HRS PRN NITROGLYCERIN SubLingual (Nitroglycerin) 0.4 Mg Tab.subl 1 Tab SL PRN Q5MIN PRN MDD 3 tabs Seroquel (Quetiapine Fumarate) 25 Mg Tablet 12.5 Mg PO BID Colace (Docusate Sodium) 100 Mg Capsule 1 Cap PO BID Diltiazem 24HR Cd (Diltiazem Hcl) 120 Mg Cap.er.24h 1 Cap PO DAILY Vitamin D (Cholecalciferol (Vitamin D3)) 1,000 Unit Capsule 1 Cap PO DAILY Synthroid (Levothyroxine Sodium) 200 Mcg Tablet 1 Tab PO DAILY Avapro (Irbesartan) 75 Mg Tablet 75 Mg PO DAILY Digoxin 250 Mcg Tablet 0.125 Mg PO DAILY Aspirin Ec (Aspirin) 81 Mg Tablet.dr 81 Mg PO DAILY Plavix (Clopidogrel Bisulfate) 75 Mg Tablet 75 Mg PO DAILY I have reviewed the current psychotropics carefully including drug interactions. Risk benefit ratio favors no change other than as noted in my dictated progress note. Diagnosis: Problems: (1) Dementia in Alzheimer's disease with delirium (2) Anxiety disorder (3) Psychosis, atypical SERA THOMAS MD Nov 12, 2017 20:00
--- NOTE | 2017-11-12 23:51 | PN ---
DATE: 11/11/2017 PSYCHIATRIC PROGRESS NOTE This late entry 11/11/2017 covers elements not covered in my initial note 11/11/2017. SUBJECTIVE: Met with the patient in the evening of 11/11/2017. The patient did reasonably well previous evening and reasonably well during the day, less delusional regarding her daughter, Yessi, who is her guardian. REVIEW OF SYSTEMS: No CV, , pulmonary, eye, ENT system symptoms on review. MENTAL STATUS EXAM: Oriented to herself, situation. Speech has some latency, coherent. Abstraction is fair, computation impaired, language function intact, attention span short. Mood and affect remains somewhat anxious, labile, but improved. LABORATORY DATA: Reviewed. 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 PLAN: Continue current psychotropics, but we will consider increasing Zoloft in due course. MAN Daron THOMAS MD DR: MEÑO/alexx JOB#: [id number] / [id number]
--- NOTE | 2017-11-12 23:53 | PN ---
DATE: 11/10/2017 This late entry 11/10/2017 covers elements not covered in my initial note 11/10/2017. Met with the patient in her room. She has been anxious, restless, yelling out help, hallucinating previous evening, slept reasonably well. REVIEW OF SYSTEMS: No CV, , pulmonary, eye, ENT system symptoms on review. MENTAL STATUS EXAM: Oriented to herself and situation. Speech coherent, abstraction fair, computation impaired, language function intact. Mood and affect somewhat anxious, labile. LABORATORY DATA: Reviewed. IMPRESSION: Major depressive disorder with psychotic features, bipolar 1, mixed with psychotic features; cognitive disorder, unspecified. PLAN: Continue current psychotropics mentioned in my initial note. May consider increasing Risperdal in due course. MAN Daron THOAMS MD DR: MEÑO/alexx JOB#: [id number] / [id number]
[2017-11-13 05:50] VITALS: BP 135/76
[2017-11-13] MEDS: LEVOTHYROXINE 100 MCG TABLET PO SCH (06:25)
[2017-11-13] MEDS: LOSARTAN 25 MG TABLET. PO SCH (09:25)
[2017-11-13] MEDS: SERTRALINE 50 MG TABLET. PO SCH (09:25)
[2017-11-13] MEDS: ASPIRIN ENTERIC COATED 81 MG TABLET.DR. PO SCH (09:25)
[2017-11-13] MEDS: DOCUSATE SODIUM 100 MG CAPSULE PO SCH ×2 (09:25→19:14)
[2017-11-13] MEDS: CHOLECALCIFEROL (VITAMIN D3) 1,000 UNIT TABLET PO SCH (09:25)
[2017-11-13] MEDS: DIGOXIN 125 MCG TABLET PO SCH (09:25)
[2017-11-13] MEDS: CLOPIDOGREL BISULFATE 75 MG TABLET PO SCH (09:27)
[2017-11-13 16:44] VITALS: BP 101/68
[2017-11-13] MEDS: MIRTAZAPINE 15 MG TABLET PO SCH (19:14)
[2017-11-13] MEDS: traZODone 50 MG TABLET. PO SCH (19:14)
[2017-11-13] MEDS: risperiDONE 0.25 MG TABLET. PO SCH (19:15)
--- NOTE | 2017-11-13 20:00 | PDOC ---
Exam Note: Jj Note: Please also refer to the separate dictated note~for this date of service dictated separately.~Patient seen individually. Discussed the patient with Nursing staff reviewed the chart.~Reviewed interim history and current functioning. Reviewed vital signs,~Labs/ Radiology~and current medications noted below. Continue current treatment with the changes noted in the dictated addendum note Assessment: Vital Signs: Vital Signs Date Time Temp Pulse Resp B/P (MAP) Pulse Ox O2 Delivery O2 Flow Rate FiO2 11/13/17 16:44 98.0 68 19 101/68 (79) 97 11/13/17 05:50 Room Air I&O Intake and Output 11/13/17 07:00 Intake Total 440 ml Balance 440 ml Intake Oral 440 ml # Voids 1 Current Medications: Meds: Current Medications Acetaminophen (Tylenol) 650 mg PRN Q6HRS PRN PO PAIN / TEMP Last administered on 11/11/17at 09:11; Start 10/30/17 at 15:30 Multi-Ingredient Ointment (Analgesic [place]) 1 annita PRN QID PRN TP MUSCLE PAIN Last administered on 11/01/17at 00:33; Start 10/30/17 at 15:30 Al Hydroxide/Mg Hydroxide (Mylanta Plus Xs) 15 ml PRN AFTMEALHC PRN PO DYSPEPSIA; Start 10/30/17 at 15:30 Magnesium Hydroxide (Milk Of Magnesia) 2,400 mg PRN QHS PRN PO CONSTIPATION; Start 10/30/17 at 15:30 Quetiapine Fumarate (SEROquel) 12.5 mg BID PO ; Start 10/30/17 at 21:00; Stop 10/30/17 at 21:00; Status DC Info (FLU VACCINE per PROTOCOL) 1 ea 1X ONCE MC ; Start 11/01/17 at 09:00; Stop 11/01/17 at 09:01; Status UNV Pneumococcal Polyvalent Vaccine (Pneumovax 23) 0.5 ml ONCE ONCE VAX IM Last administered on 11/01/17at 10:12; Start 11/01/17 at 09:00; Stop 11/01/17 at 09:01; Status DC Influenza Virus Vaccine Quadrival (Fluarix Quad [id number] Syringe) 0.5 ml ONCE ONCE VAX IM Last administered on 11/01/17at 10:10; Start 11/01/17 at 09:00; Stop 11/01/17 at 09:01; Status DC Aspirin (Aspirin Enteric Coated) 81 mg DAILY PO Last administered on 11/13/17 09:25; Start 10/31/17 at 09:00 Clopidogrel Bisulfate (Plavix) 75 mg DAILY PO Last administered on 11/13/17 09 :27; Start 10/31/17 at 09:00 Digoxin (Lanoxin) 125 mcg DAILY PO Last administered on 11/13/17 09:25; Start 10/31/17 at 09:00 Diltiazem HCl (Cardizem 24hr Cd) 120 mg DAILY PO Last administered on 09:26; Start 10/31/17 at 09:00 Docusate Sodium (Colace) 100 mg BID PO Last administered on 11/13/17 19:14; Start 10/30/17 at 21:00 Nitroglycerin (Nitrostat) 0.4 mg PRN Q5MIN PRN SL CHEST PAIN; Start 10/30/17 at 18:30 Vitamin D (Vitamin D3) 1,000 unit DAILY PO Last administered on 11/13/17 09:25 ; Start 10/31/17 at 09:00 Losartan Potassium (Cozaar) 25 mg DAILY PO Last administered on 11/13/17 09:25 ; Start 10/31/17 at 09:00 Levothyroxine Sodium (Synthroid) 200 mcg DAILY07 PO Last administered on 06:25; Start 10/31/17 at 07:00 Quetiapine Fumarate (SEROquel) 12.5 mg DAILY PO Last administered on 11/04/17at 10:08; Start 10/31/17 at 09:00; Stop 11/04/17 at 19:26; Status DC Quetiapine Fumarate (SEROquel) 25 mg QHS PO Last administered on 11/03/17at 20: 05; Start 10/30/17 at 21:00; Stop 11/04/17 at 17:39; Status DC Sertraline HCl (Zoloft) 25 mg DAILY PO Last administered on 11/07/17at 09:53; Start 11/01/17 at 09:00; Stop 11/07/17 at 11:42; Status DC Vitamin D (Vitamin D3) 50,000 unit WEEKLY PO Last administered on 11/08/17at 09: 05; Start 11/01/17 at 12:00 Tramadol HCl (Ultram) 50 mg PRN Q6HRS PRN PO PAIN Last administered on at 21:48; Start 11/01/17 at 14:45 Mirtazapine (Remeron) 7.5 mg QHS PO Last administered on 11/04/17at 19:52; Start 11/01/17 at 21:00; Stop 11/05/17 at 19:19; Status DC Quetiapine Fumarate (SEROquel) 37.5 mg QHS PO ; Start 11/04/17 at 21:00; Stop at 21:00; Status DC Risperidone (RisperDAL) 0.25 mg QHS PO Last administered on 11/11/17at 20:04; Start 11/04/17 at 21:00; Stop 11/12/17 at 18:35; Status DC Mirtazapine (Remeron) 15 mg QHS PO Last administered on 11/13/17at 19:14; Start 11/05/17 at 21:00 Olanzapine (ZyPREXA ZYDIS) 2.5 mg PRN Q2HR PRN PO PSYCHOSIS; Start 11/06/17 at 18:15 Sertraline HCl (Zoloft) 50 mg DAILY PO Last administered on 11/13/17at 09:25; Start 11/08/17 at 09:00 Trazodone HCl (Desyrel) 50 mg QHS PO Last administered on 11/13/17at 19:14; Start 11/09/17 at 21:00 Trazodone HCl (Desyrel) 50 mg PRN QHS PRN PO INSOMNIA; Start 11/09/17 at 19:00 Risperidone (RisperDAL) 0.375 mg QHS PO Last administered on 11/13/17at 19:15; Start 11/12/17 at 21:00 Active Scripts Active Reported Naproxen 375 Mg Tablet 375 Mg PO PRN Q8HRS PRN NITROGLYCERIN SubLingual (Nitroglycerin) 0.4 Mg Tab.subl 1 Tab SL PRN Q5MIN PRN MDD 3 tabs Seroquel (Quetiapine Fumarate) 25 Mg Tablet 12.5 Mg PO BID Colace (Docusate Sodium) 100 Mg Capsule 1 Cap PO BID Diltiazem 24HR Cd (Diltiazem Hcl) 120 Mg Cap.er.24h 1 Cap PO DAILY Vitamin D (Cholecalciferol (Vitamin D3)) 1,000 Unit Capsule 1 Cap PO DAILY Synthroid (Levothyroxine Sodium) 200 Mcg Tablet 1 Tab PO DAILY Avapro (Irbesartan) 75 Mg Tablet 75 Mg PO DAILY Digoxin 250 Mcg Tablet 0.125 Mg PO DAILY Aspirin Ec (Aspirin) 81 Mg Tablet.dr 81 Mg PO DAILY Plavix (Clopidogrel Bisulfate) 75 Mg Tablet 75 Mg PO DAILY I have reviewed the current psychotropics carefully including drug interactions. Risk benefit ratio favors no change other than as noted in my dictated progress note. Diagnosis: Problems: (1) Dementia in Alzheimer's disease with delirium (2) Anxiety disorder (3) Psychosis, atypical SERA THOMAS MD Nov 13, 2017 20:00
--- NOTE | 2017-11-13 21:36 | PN ---
DATE: 11/12/2017 PSYCHIATRIC PROGRESS NOTE This is a late entry of 11/12/2017 covers elements not covered in my initial note of 11/12/2017. HISTORY OF PRESENT ILLNESS: I met with the patient in the evening of 11/12/2017 in her room. She is quite withdrawn, somewhat paranoid regarding social service staff, sarcastic, but compliant with medications. No CV, , pulmonary, eye system symptoms on review. MENTAL STATUS EXAM: Oriented to herself and situation. Speech coherent, has some latency. Abstraction fair, computation impaired, language function intact. Mood and affect are showing some improvement. LABORATORY DATA: Reviewed. IMPRESSION: Major depressive disorder with psychotic features; cognitive disorder, unspecified. PLAN: Increase Risperdal to 0.375 mg p.o. at bedtime. Continue rest unchanged. MAN Daron THOMAS MD DR: MEÑO/alexx JOB#: [id number] / [id number]
[2017-11-14] MEDS: LEVOTHYROXINE 100 MCG TABLET PO SCH (06:05)
[2017-11-14 06:25] VITALS: BP 127/67
[2017-11-14] MEDS: DIGOXIN 125 MCG TABLET PO SCH (08:36)
[2017-11-14] MEDS: CHOLECALCIFEROL (VITAMIN D3) 1,000 UNIT TABLET PO SCH (08:36)
[2017-11-14] MEDS: LOSARTAN 25 MG TABLET. PO SCH (08:36)
[2017-11-14] MEDS: ASPIRIN ENTERIC COATED 81 MG TABLET.DR. PO SCH (08:36)
[2017-11-14] MEDS: DOCUSATE SODIUM 100 MG CAPSULE PO SCH ×2 (08:36→20:12)
[2017-11-14] MEDS: SERTRALINE 50 MG TABLET. PO SCH (08:36)
[2017-11-14] MEDS: CLOPIDOGREL BISULFATE 75 MG TABLET PO SCH (08:36)
[2017-11-14 16:25] VITALS: BP 120/78
--- NOTE | 2017-11-14 19:51 | PDOC ---
Exam Note: Jj Note: Please also refer to the separate dictated note~for this date of service dictated separately.~Patient seen individually. Discussed the patient with Nursing staff reviewed the chart.~Reviewed interim history and current functioning. Reviewed vital signs,~Labs/ Radiology~and current medications noted below. Continue current treatment with the changes noted in the dictated addendum note Assessment: Vital Signs: Vital Signs Date Time Temp Pulse Resp B/P (MAP) Pulse Ox O2 Delivery O2 Flow Rate FiO2 11/14/17 16:25 97.5 76 18 120/78 (92) 97 Room Air I&O Intake and Output 11/14/17 07:00 Intake Total 440 ml Balance 440 ml Intake Oral 440 ml # Voids 1 Current Medications: Meds: Current Medications Acetaminophen (Tylenol) 650 mg PRN Q6HRS PRN PO PAIN / TEMP Last administered on 11/11/17at 09:11; Start 10/30/17 at 15:30 Multi-Ingredient Ointment (Analgesic [place]) 1 annita PRN QID PRN TP MUSCLE PAIN Last administered on 11/01/17at 00:33; Start 10/30/17 at 15:30 Al Hydroxide/Mg Hydroxide (Mylanta Plus Xs) 15 ml PRN AFTMEALHC PRN PO DYSPEPSIA; Start 10/30/17 at 15:30 Magnesium Hydroxide (Milk Of Magnesia) 2,400 mg PRN QHS PRN PO CONSTIPATION; Start 10/30/17 at 15:30 Quetiapine Fumarate (SEROquel) 12.5 mg BID PO ; Start 10/30/17 at 21:00; Stop 10/30/17 at 21:00; Status DC Info (FLU VACCINE per PROTOCOL) 1 ea 1X ONCE MC ; Start 11/01/17 at 09:00; Stop 11/01/17 at 09:01; Status UNV Pneumococcal Polyvalent Vaccine (Pneumovax 23) 0.5 ml ONCE ONCE VAX IM Last administered on 11/01/17at 10:12; Start 11/01/17 at 09:00; Stop 11/01/17 at 09:01; Status DC Influenza Virus Vaccine Quadrival (Fluarix Quad 0202-1289 Syringe) 0.5 ml ONCE ONCE VAX IM Last administered on 11/01/17at 10:10; Start 11/01/17 at 09:00; Stop 11/01/17 at 09:01; Status DC Aspirin (Aspirin Enteric Coated) 81 mg DAILY PO Last administered on 11/14/17 08:36; Start 10/31/17 at 09:00 Clopidogrel Bisulfate (Plavix) 75 mg DAILY PO Last administered on 11/14/17 08 :36; Start 10/31/17 at 09:00 Digoxin (Lanoxin) 125 mcg DAILY PO Last administered on 11/14/17 08:36; Start 10/31/17 at 09:00 Diltiazem HCl (Cardizem 24hr Cd) 120 mg DAILY PO Last administered on 08:36; Start 10/31/17 at 09:00 Docusate Sodium (Colace) 100 mg BID PO Last administered on 11/14/17 08:36; Start 10/30/17 at 21:00 Nitroglycerin (Nitrostat) 0.4 mg PRN Q5MIN PRN SL CHEST PAIN; Start 10/30/17 at 18:30 Vitamin D (Vitamin D3) 1,000 unit DAILY PO Last administered on 11/14/17 08:36 ; Start 10/31/17 at 09:00 Losartan Potassium (Cozaar) 25 mg DAILY PO Last administered on 11/14/17 08:36 ; Start 10/31/17 at 09:00 Levothyroxine Sodium (Synthroid) 200 mcg DAILY07 PO Last administered on 06:05; Start 10/31/17 at 07:00 Quetiapine Fumarate (SEROquel) 12.5 mg DAILY PO Last administered on 11/04/17at 10:08; Start 10/31/17 at 09:00; Stop 11/04/17 at 19:26; Status DC Quetiapine Fumarate (SEROquel) 25 mg QHS PO Last administered on 11/03/17 20: 05; Start 10/30/17 at 21:00; Stop 11/04/17 at 17:39; Status DC Sertraline HCl (Zoloft) 25 mg DAILY PO Last administered on 11/07/17 09:53; Start 11/01/17 at 09:00; Stop 11/07/17 at 11:42; Status DC Vitamin D (Vitamin D3) 50,000 unit WEEKLY PO Last administered on 11/08/17at 09: 05; Start 11/01/17 at 12:00 Tramadol HCl (Ultram) 50 mg PRN Q6HRS PRN PO PAIN Last administered on at 21:48; Start 11/01/17 at 14:45 Mirtazapine (Remeron) 7.5 mg QHS PO Last administered on 11/04/17at 19:52; Start 11/01/17 at 21:00; Stop 11/05/17 at 19:19; Status DC Quetiapine Fumarate (SEROquel) 37.5 mg QHS PO ; Start 11/04/17 at 21:00; Stop at 21:00; Status DC Risperidone (RisperDAL) 0.25 mg QHS PO Last administered on 11/11/17at 20:04; Start 11/04/17 at 21:00; Stop 11/12/17 at 18:35; Status DC Mirtazapine (Remeron) 15 mg QHS PO Last administered on 11/13/17at 19:14; Start 11/05/17 at 21:00 Olanzapine (ZyPREXA ZYDIS) 2.5 mg PRN Q2HR PRN PO PSYCHOSIS; Start 11/06/17 at 18:15 Sertraline HCl (Zoloft) 50 mg DAILY PO Last administered on 11/14/17at 08:36; Start 11/08/17 at 09:00 Trazodone HCl (Desyrel) 50 mg QHS PO Last administered on 11/13/17at 19:14; Start 11/09/17 at 21:00 Trazodone HCl (Desyrel) 50 mg PRN QHS PRN PO INSOMNIA; Start 11/09/17 at 19:00 Risperidone (RisperDAL) 0.375 mg QHS PO Last administered on 11/13/17at 19:15; Start 11/12/17 at 21:00 Active Scripts Active Reported Naproxen 375 Mg Tablet 375 Mg PO PRN Q8HRS PRN NITROGLYCERIN SubLingual (Nitroglycerin) 0.4 Mg Tab.subl 1 Tab SL PRN Q5MIN PRN MDD 3 tabs Seroquel (Quetiapine Fumarate) 25 Mg Tablet 12.5 Mg PO BID Colace (Docusate Sodium) 100 Mg Capsule 1 Cap PO BID Diltiazem 24HR Cd (Diltiazem Hcl) 120 Mg Cap.er.24h 1 Cap PO DAILY Vitamin D (Cholecalciferol (Vitamin D3)) 1,000 Unit Capsule 1 Cap PO DAILY Synthroid (Levothyroxine Sodium) 200 Mcg Tablet 1 Tab PO DAILY Avapro (Irbesartan) 75 Mg Tablet 75 Mg PO DAILY Digoxin 250 Mcg Tablet 0.125 Mg PO DAILY Aspirin Ec (Aspirin) 81 Mg Tablet.dr 81 Mg PO DAILY Plavix (Clopidogrel Bisulfate) 75 Mg Tablet 75 Mg PO DAILY I have reviewed the current psychotropics carefully including drug interactions. Risk benefit ratio favors no change other than as noted in my dictated progress note. Diagnosis: Problems: (1) Dementia in Alzheimer's disease with delirium (2) Anxiety disorder (3) Psychosis, atypical SERA THOMAS MD Nov 14, 2017 19:51
[2017-11-14] MEDS: traZODone 50 MG TABLET. PO SCH (20:12)
[2017-11-14] MEDS: MIRTAZAPINE 15 MG TABLET PO SCH (20:13)
[2017-11-14] MEDS: risperiDONE 0.25 MG TABLET. PO SCH (20:13)
[2017-11-15 06:18] VITALS: BP 130/74
[2017-11-15] MEDS: DOCUSATE SODIUM 100 MG CAPSULE PO SCH ×2 (08:03→20:44)
[2017-11-15] MEDS: ASPIRIN ENTERIC COATED 81 MG TABLET.DR. PO SCH (08:03)
[2017-11-15] MEDS: LOSARTAN 25 MG TABLET. PO SCH (08:04)
[2017-11-15] MEDS: DIGOXIN 125 MCG TABLET PO SCH (08:04)
[2017-11-15] MEDS: CLOPIDOGREL BISULFATE 75 MG TABLET PO SCH (08:04)
[2017-11-15] MEDS: SERTRALINE 50 MG TABLET. PO SCH (08:04)
[2017-11-15] MEDS: CHOLECALCIFEROL (VITAMIN D3) 1,000 UNIT TABLET PO SCH (08:04)
[2017-11-15] MEDS: LEVOTHYROXINE 100 MCG TABLET PO SCH (08:04)
[2017-11-15] MEDS: CHOLECALCIFEROL (VITAMIN D3) 50,000 UNIT CAPSULE PO SCH (08:06)
[2017-11-15 16:02] VITALS: BP 103/57
--- NOTE | 2017-11-15 19:42 | PDOC ---
Exam Note: Jj Note: Please also refer to the separate dictated note~for this date of service dictated separately.~Patient seen individually. Discussed the patient with Nursing staff reviewed the chart.~Reviewed interim history and current functioning. Reviewed vital signs,~Labs/ Radiology~and current medications noted below. Continue current treatment with the changes noted in the dictated addendum note Assessment: Vital Signs: Vital Signs Date Time Temp Pulse Resp B/P (MAP) Pulse Ox O2 Delivery O2 Flow Rate FiO2 11/15/17 16:02 97.7 73 18 103/57 (72) 96 11/14/17 16:25 Room Air I&O Intake and Output 11/15/17 07:00 Intake Total 1080 ml Balance 1080 ml Intake Oral 1080 ml # Voids 1 Current Medications: Meds: Current Medications Acetaminophen (Tylenol) 650 mg PRN Q6HRS PRN PO PAIN / TEMP Last administered on 11/11/17at 09:11; Start 10/30/17 at 15:30 Multi-Ingredient Ointment (Analgesic [place]) 1 annita PRN QID PRN TP MUSCLE PAIN Last administered on 11/01/17at 00:33; Start 10/30/17 at 15:30 Al Hydroxide/Mg Hydroxide (Mylanta Plus Xs) 15 ml PRN AFTMEALHC PRN PO DYSPEPSIA; Start 10/30/17 at 15:30 Magnesium Hydroxide (Milk Of Magnesia) 2,400 mg PRN QHS PRN PO CONSTIPATION; Start 10/30/17 at 15:30 Quetiapine Fumarate (SEROquel) 12.5 mg BID PO ; Start 10/30/17 at 21:00; Stop 10/30/17 at 21:00; Status DC Info (FLU VACCINE per PROTOCOL) 1 ea 1X ONCE MC ; Start 11/01/17 at 09:00; Stop 11/01/17 at 09:01; Status UNV Pneumococcal Polyvalent Vaccine (Pneumovax 23) 0.5 ml ONCE ONCE VAX IM Last administered on 11/01/17at 10:12; Start 11/01/17 at 09:00; Stop 11/01/17 at 09:01; Status DC Influenza Virus Vaccine Quadrival (Fluarix Quad 0331-7347 Syringe) 0.5 ml ONCE ONCE VAX IM Last administered on 11/01/17at 10:10; Start 11/01/17 at 09:00; Stop 11/01/17 at 09:01; Status DC Aspirin (Aspirin Enteric Coated) 81 mg DAILY PO Last administered on 11/15/17 08:03; Start 10/31/17 at 09:00 Clopidogrel Bisulfate (Plavix) 75 mg DAILY PO Last administered on 11/15/17 08 :04; Start 10/31/17 at 09:00 Digoxin (Lanoxin) 125 mcg DAILY PO Last administered on 11/15/17 08:04; Start 10/31/17 at 09:00 Diltiazem HCl (Cardizem 24hr Cd) 120 mg DAILY PO Last administered on 08:03; Start 10/31/17 at 09:00 Docusate Sodium (Colace) 100 mg BID PO Last administered on 11/15/17 08:03; Start 10/30/17 at 21:00 Nitroglycerin (Nitrostat) 0.4 mg PRN Q5MIN PRN SL CHEST PAIN; Start 10/30/17 at 18:30 Vitamin D (Vitamin D3) 1,000 unit DAILY PO Last administered on 11/15/17 08:04 ; Start 10/31/17 at 09:00 Losartan Potassium (Cozaar) 25 mg DAILY PO Last administered on 11/15/17 08:04 ; Start 10/31/17 at 09:00 Levothyroxine Sodium (Synthroid) 200 mcg DAILY07 PO Last administered on 08:04; Start 10/31/17 at 07:00 Quetiapine Fumarate (SEROquel) 12.5 mg DAILY PO Last administered on 11/04/17at 10:08; Start 10/31/17 at 09:00; Stop 11/04/17 at 19:26; Status DC Quetiapine Fumarate (SEROquel) 25 mg QHS PO Last administered on 11/03/17at 20: 05; Start 10/30/17 at 21:00; Stop 11/04/17 at 17:39; Status DC Sertraline HCl (Zoloft) 25 mg DAILY PO Last administered on 11/07/17at 09:53; Start 11/01/17 at 09:00; Stop 11/07/17 at 11:42; Status DC Vitamin D (Vitamin D3) 50,000 unit WEEKLY PO Last administered on 11/15/17 08: 06; Start 11/01/17 at 12:00 Tramadol HCl (Ultram) 50 mg PRN Q6HRS PRN PO PAIN Last administered on at 21:48; Start 11/01/17 at 14:45 Mirtazapine (Remeron) 7.5 mg QHS PO Last administered on 11/04/17at 19:52; Start 11/01/17 at 21:00; Stop 11/05/17 at 19:19; Status DC Quetiapine Fumarate (SEROquel) 37.5 mg QHS PO ; Start 11/04/17 at 21:00; Stop at 21:00; Status DC Risperidone (RisperDAL) 0.25 mg QHS PO Last administered on 11/11/17at 20:04; Start 11/04/17 at 21:00; Stop 11/12/17 at 18:35; Status DC Mirtazapine (Remeron) 15 mg QHS PO Last administered on 11/14/17at 20:13; Start 11/05/17 at 21:00 Olanzapine (ZyPREXA ZYDIS) 2.5 mg PRN Q2HR PRN PO PSYCHOSIS; Start 11/06/17 at 18:15 Sertraline HCl (Zoloft) 50 mg DAILY PO Last administered on 11/15/17at 08:04; Start 11/08/17 at 09:00 Trazodone HCl (Desyrel) 50 mg QHS PO Last administered on 11/14/17at 20:12; Start 11/09/17 at 21:00 Trazodone HCl (Desyrel) 50 mg PRN QHS PRN PO INSOMNIA; Start 11/09/17 at 19:00 Risperidone (RisperDAL) 0.375 mg QHS PO Last administered on 11/14/17at 20:13; Start 11/12/17 at 21:00 Active Scripts Active Reported Naproxen 375 Mg Tablet 375 Mg PO PRN Q8HRS PRN NITROGLYCERIN SubLingual (Nitroglycerin) 0.4 Mg Tab.subl 1 Tab SL PRN Q5MIN PRN MDD 3 tabs Seroquel (Quetiapine Fumarate) 25 Mg Tablet 12.5 Mg PO BID Colace (Docusate Sodium) 100 Mg Capsule 1 Cap PO BID Diltiazem 24HR Cd (Diltiazem Hcl) 120 Mg Cap.er.24h 1 Cap PO DAILY Vitamin D (Cholecalciferol (Vitamin D3)) 1,000 Unit Capsule 1 Cap PO DAILY Synthroid (Levothyroxine Sodium) 200 Mcg Tablet 1 Tab PO DAILY Avapro (Irbesartan) 75 Mg Tablet 75 Mg PO DAILY Digoxin 250 Mcg Tablet 0.125 Mg PO DAILY Aspirin Ec (Aspirin) 81 Mg Tablet.dr 81 Mg PO DAILY Plavix (Clopidogrel Bisulfate) 75 Mg Tablet 75 Mg PO DAILY I have reviewed the current psychotropics carefully including drug interactions. Risk benefit ratio favors no change other than as noted in my dictated progress note. Diagnosis: Problems: (1) Dementia in Alzheimer's disease with delirium (2) Anxiety disorder (3) Psychosis, atypical SERA THOMAS MD Nov 15, 2017 19:41
[2017-11-15] MEDS: traZODone 50 MG TABLET. PO SCH (20:43)
[2017-11-15] MEDS: risperiDONE 0.25 MG TABLET. PO SCH (20:43)
[2017-11-15] MEDS: MIRTAZAPINE 15 MG TABLET PO SCH (20:43)
--- NOTE | 2017-11-15 21:27 | PN ---
DATE: 11/13/2017 PSYCHIATRIC PROGRESS NOTE This last entry, date of service 11/13/2017 covers elements not covered in my initial note 11/13/2017. SUBJECTIVE: I met with the patient evening of 11/13/2017. Overall, the patient is doing better, less paranoid. Psychological testing awaited with Dr. Mays. She is withdrawn, spends much time in her room, which is where I met with her. REVIEW OF SYSTEMS: No CV, , pulmonary, eye system symptoms on review. MENTAL STATUS EXAM: Oriented to herself, situation. Speech coherent, less pressured. Abstraction fair, computation impaired, language function intact. Mood and affect showing some improvement. LABORATORY DATA: Reviewed. IMPRESSION: Major depressive disorder with psychotic features, possible major neurocognitive disorder, early Alzheimer, vascular with delusion. PLAN: Continue psychotropics mentioned in my initial note. Risperdal was increased. We will adjust further as clinically indicated. SERA THOMAS MD DR: MEÑO/alexx JOB#: [id number] / [id number]
--- NOTE | 2017-11-16 01:28 | PN ---
DATE: 11/14/2017 This late entry 11/14/2017 covers elements not covered in my initial note 11/14/2017. Met with the patient evening of 11/14/2017 and staffed at a treatment team meeting with the entire team. I also met with Dr. Mays, who has done psychological testing on the patient, which indicated significant memory deficits and conceptual problems. Please refer to the report for further details. The patient remains delusional, believes her daughter has stolen her money, somewhat withdrawn. Met with her in her room. No CV, , pulmonary, eye, ENT system symptoms on review. MENTAL STATUS EXAM: Oriented to herself, situation at times. Speech is coherent, abstraction fair, computation impaired, language function intact, attention span short. Mood and affect withdrawn. LABORATORY DATA: Reviewed. IMPRESSION: Major depressive disorder with psychotic features; major neurocognitive disorder, Alzheimer, vascular with delusion, depression. Rest unchanged. PLAN: Continue psychotropics mentioned in my initial note. SERA THOMAS MD DR: MEÑO/alexx JOB#: [id number] / [id number]
[2017-11-16] MEDS: LEVOTHYROXINE 100 MCG TABLET PO SCH (06:28)
[2017-11-16 06:42] VITALS: BP 123/60
[2017-11-16] MEDS: DIGOXIN 125 MCG TABLET PO SCH (07:50)
[2017-11-16] MEDS: CLOPIDOGREL BISULFATE 75 MG TABLET PO SCH (07:50)
[2017-11-16] MEDS: ASPIRIN ENTERIC COATED 81 MG TABLET.DR. PO SCH (07:51)
[2017-11-16] MEDS: SERTRALINE 50 MG TABLET. PO SCH (07:51)
[2017-11-16] MEDS: LOSARTAN 25 MG TABLET. PO SCH (07:51)
[2017-11-16] MEDS: DOCUSATE SODIUM 100 MG CAPSULE PO SCH ×2 (07:52→20:45)
[2017-11-16] MEDS: CHOLECALCIFEROL (VITAMIN D3) 1,000 UNIT TABLET PO SCH (07:52)
[2017-11-16 16:10] VITALS: BP 124/79
[2017-11-16] MEDS: risperiDONE 0.25 MG TABLET. PO SCH (20:45)
[2017-11-16] MEDS: traZODone 50 MG TABLET. PO SCH (20:45)
[2017-11-16] MEDS: MIRTAZAPINE 15 MG TABLET PO SCH (20:45)
--- NOTE | 2017-11-16 21:59 | PDOC ---
Exam Note: Jj Note: Please also refer to the separate dictated note~for this date of service dictated separately.~Patient seen individually. Discussed the patient with Nursing staff reviewed the chart.~Reviewed interim history and current functioning. Reviewed vital signs,~Labs/ Radiology~and current medications noted below. Continue current treatment with the changes noted in the dictated addendum note Assessment: Vital Signs: Vital Signs Date Time Temp Pulse Resp B/P (MAP) Pulse Ox O2 Delivery O2 Flow Rate FiO2 11/16/17 16:10 98.5 64 16 124/79 (94) 95 11/14/17 16:25 Room Air I&O Intake and Output 11/16/17 07:00 Intake Total 960 ml Balance 960 ml Intake Oral 960 ml # Voids 1 Current Medications: Meds: Current Medications Acetaminophen (Tylenol) 650 mg PRN Q6HRS PRN PO PAIN / TEMP Last administered on 11/11/17at 09:11; Start 10/30/17 at 15:30 Multi-Ingredient Ointment (Analgesic [place]) 1 annita PRN QID PRN TP MUSCLE PAIN Last administered on 11/01/17at 00:33; Start 10/30/17 at 15:30 Al Hydroxide/Mg Hydroxide (Mylanta Plus Xs) 15 ml PRN AFTMEALHC PRN PO DYSPEPSIA; Start 10/30/17 at 15:30 Magnesium Hydroxide (Milk Of Magnesia) 2,400 mg PRN QHS PRN PO CONSTIPATION Last administered on 11/15/17at 20:54; Start 10/30/17 at 15:30 Quetiapine Fumarate (SEROquel) 12.5 mg BID PO ; Start 10/30/17 at 21:00; Stop 10/30/17 at 21:00; Status DC Info (FLU VACCINE per PROTOCOL) 1 ea 1X ONCE MC ; Start 11/01/17 at 09:00; Stop 11/01/17 at 09:01; Status UNV Pneumococcal Polyvalent Vaccine (Pneumovax 23) 0.5 ml ONCE ONCE VAX IM Last administered on 11/01/17at 10:12; Start 11/01/17 at 09:00; Stop 11/01/17 at 09:01; Status DC Influenza Virus Vaccine Quadrival (Fluarix Quad [id number] Syringe) 0.5 ml ONCE ONCE VAX IM Last administered on 11/01/17 10:10; Start 11/01/17 at 09:00; Stop 11/01/17 at 09:01; Status DC Aspirin (Aspirin Enteric Coated) 81 mg DAILY PO Last administered on 11/16/17 07:51; Start 10/31/17 at 09:00 Clopidogrel Bisulfate (Plavix) 75 mg DAILY PO Last administered on 11/16/17 07 :50; Start 10/31/17 at 09:00 Digoxin (Lanoxin) 125 mcg DAILY PO Last administered on 11/16/17 07:50; Start 10/31/17 at 09:00 Diltiazem HCl (Cardizem 24hr Cd) 120 mg DAILY PO Last administered on 07:51; Start 10/31/17 at 09:00 Docusate Sodium (Colace) 100 mg BID PO Last administered on 11/16/17 20:45; Start 10/30/17 at 21:00 Nitroglycerin (Nitrostat) 0.4 mg PRN Q5MIN PRN SL CHEST PAIN; Start 10/30/17 at 18:30 Vitamin D (Vitamin D3) 1,000 unit DAILY PO Last administered on 11/16/17 07:52 ; Start 10/31/17 at 09:00 Losartan Potassium (Cozaar) 25 mg DAILY PO Last administered on 11/16/17 07:51 ; Start 10/31/17 at 09:00 Levothyroxine Sodium (Synthroid) 200 mcg DAILY07 PO Last administered on 06:28; Start 10/31/17 at 07:00 Quetiapine Fumarate (SEROquel) 12.5 mg DAILY PO Last administered on 11/04/17 10:08; Start 10/31/17 at 09:00; Stop 11/04/17 at 19:26; Status DC Quetiapine Fumarate (SEROquel) 25 mg QHS PO Last administered on 11/03/17 20: 05; Start 10/30/17 at 21:00; Stop 11/04/17 at 17:39; Status DC Sertraline HCl (Zoloft) 25 mg DAILY PO Last administered on 11/07/17 09:53; Start 11/01/17 at 09:00; Stop 11/07/17 at 11:42; Status DC Vitamin D (Vitamin D3) 50,000 unit WEEKLY PO Last administered on 11/15/17at 08: 06; Start 11/01/17 at 12:00 Tramadol HCl (Ultram) 50 mg PRN Q6HRS PRN PO PAIN Last administered on at 21:48; Start 11/01/17 at 14:45 Mirtazapine (Remeron) 7.5 mg QHS PO Last administered on 11/04/17at 19:52; Start 11/01/17 at 21:00; Stop 11/05/17 at 19:19; Status DC Quetiapine Fumarate (SEROquel) 37.5 mg QHS PO ; Start 11/04/17 at 21:00; Stop at 21:00; Status DC Risperidone (RisperDAL) 0.25 mg QHS PO Last administered on 11/11/17at 20:04; Start 11/04/17 at 21:00; Stop 11/12/17 at 18:35; Status DC Mirtazapine (Remeron) 15 mg QHS PO Last administered on 11/16/17at 20:45; Start 11/05/17 at 21:00 Olanzapine (ZyPREXA ZYDIS) 2.5 mg PRN Q2HR PRN PO PSYCHOSIS; Start 11/06/17 at 18:15 Sertraline HCl (Zoloft) 50 mg DAILY PO Last administered on 11/16/17at 07:51; Start 11/08/17 at 09:00 Trazodone HCl (Desyrel) 50 mg QHS PO Last administered on 11/16/17at 20:45; Start 11/09/17 at 21:00 Trazodone HCl (Desyrel) 50 mg PRN QHS PRN PO INSOMNIA; Start 11/09/17 at 19:00 Risperidone (RisperDAL) 0.375 mg QHS PO Last administered on 11/16/17at 20:45; Start 11/12/17 at 21:00 Active Scripts Active Reported Naproxen 375 Mg Tablet 375 Mg PO PRN Q8HRS PRN NITROGLYCERIN SubLingual (Nitroglycerin) 0.4 Mg Tab.subl 1 Tab SL PRN Q5MIN PRN MDD 3 tabs Seroquel (Quetiapine Fumarate) 25 Mg Tablet 12.5 Mg PO BID Colace (Docusate Sodium) 100 Mg Capsule 1 Cap PO BID Diltiazem 24HR Cd (Diltiazem Hcl) 120 Mg Cap.er.24h 1 Cap PO DAILY Vitamin D (Cholecalciferol (Vitamin D3)) 1,000 Unit Capsule 1 Cap PO DAILY Synthroid (Levothyroxine Sodium) 200 Mcg Tablet 1 Tab PO DAILY Avapro (Irbesartan) 75 Mg Tablet 75 Mg PO DAILY Digoxin 250 Mcg Tablet 0.125 Mg PO DAILY Aspirin Ec (Aspirin) 81 Mg Tablet.dr 81 Mg PO DAILY Plavix (Clopidogrel Bisulfate) 75 Mg Tablet 75 Mg PO DAILY I have reviewed the current psychotropics carefully including drug interactions. Risk benefit ratio favors no change other than as noted in my dictated progress note. Diagnosis: Problems: (1) Dementia in Alzheimer's disease with delirium (2) Anxiety disorder (3) Psychosis, atypical SERA THOMAS MD Nov 16, 2017 21:59
[2017-11-17] MEDS: ACETAMINOPHEN 325 MG TABLET PO PRN (03:15)
[2017-11-17 06:11] VITALS: BP 107/67
[2017-11-17] MEDS: LEVOTHYROXINE 100 MCG TABLET PO SCH (06:20)
[2017-11-17] MEDS: CLOPIDOGREL BISULFATE 75 MG TABLET PO SCH ×2 (07:45→09:00)
[2017-11-17] MEDS: DOCUSATE SODIUM 100 MG CAPSULE PO SCH ×3 (07:45→20:58)
[2017-11-17] MEDS: CHOLECALCIFEROL (VITAMIN D3) 1,000 UNIT TABLET PO SCH ×2 (07:45→09:00)
[2017-11-17] MEDS: LOSARTAN 25 MG TABLET. PO SCH ×2 (07:45→09:00)
[2017-11-17] MEDS: DIGOXIN 125 MCG TABLET PO SCH ×2 (07:46→09:00)
[2017-11-17] MEDS: SERTRALINE 50 MG TABLET. PO SCH ×2 (07:46→09:00)
[2017-11-17] MEDS: ASPIRIN ENTERIC COATED 81 MG TABLET.DR. PO SCH ×2 (07:46→09:00)
--- NOTE | 2017-11-17 09:58 | PN ---
DATE: 11/15/2017 This late entry 11/15/2017 covers elements not covered in my initial note 11/15/2017. I met with the patient evening of 11/15/2017. The patient remains somewhat confused, forgetful, withdrawn, spent much time in her room, that is where I met with her. She is compliant with her medications. REVIEW OF SYSTEMS: No CV, , pulmonary, eye, ENT system symptoms on review. Reliability poor. MENTAL STATUS EXAM: Oriented to herself. Insight, judgment, recent memory is impaired, but psychological testing showed more cognitive deficits and are evident on the surface. No suicidal or homicidal ideation, but was pleasant, verbal, smiling as I sat with her in her room. LABORATORY DATA: Reviewed. IMPRESSION: Psychotic disorder, unspecified; major neurocognitive disorder, early Alzheimer, vascular with delusions, depression. PLAN: Continue psychotropics mentioned in my initial note including Risperdal. MAN Daron THOMAS MD DR: MEÑO/alexx JOB#: [id number] / [id number]
--- NOTE | 2017-11-17 10:01 | PN ---
DATE: 11/16/2017 This late entry 11/16/2017 covers elements not covered in my initial note 11/16/2017. SUBJECTIVE: I met with the patient in the evening of 11/16/2017. The patient has been sarcastic, slept 5-3/4 hours previous evening, talked about spending much time on the motorcycle with her at the younger age. REVIEW OF SYSTEMS: No CV, , pulmonary, eye system symptoms on review. MENTAL STATUS EXAM: Oriented to herself, situation. She seems cognitively more intact on the surface of the meet with her than is evident on the psychological testing. No clear suicidal or homicidal ideation. Attention span short. Language function intact. IMPRESSION: Psychotic disorder, unspecified; major neurocognitive disorder, Alzheimer, vascular with delusion, depression. Rest unchanged. PLAN: Continue psychotropics mentioned in my initial note. MAN Daron THOMAS MD DR: MEÑO/alexx JOB#: [id number] / [id number]
[2017-11-17 16:28] VITALS: BP 131/72
--- NOTE | 2017-11-17 19:34 | PDOC ---
Exam Note: Jj Note: Please also refer to the separate dictated note~for this date of service dictated separately.~Patient seen individually. Discussed the patient with Nursing staff reviewed the chart.~Reviewed interim history and current functioning. Reviewed vital signs,~Labs/ Radiology~and current medications noted below. Continue current treatment with the changes noted in the dictated addendum note Assessment: Vital Signs: Vital Signs Date Time Temp Pulse Resp B/P (MAP) Pulse Ox O2 Delivery O2 Flow Rate FiO2 11/17/17 16:28 97.7 103 18 131/72 (91) 93 11/14/17 16:25 Room Air I&O Intake and Output 11/17/17 07:00 Intake Total 1220 ml Balance 1220 ml Intake Oral 1220 ml # Voids 1 # Bowel Movements 1 Current Medications: Meds: Current Medications Acetaminophen (Tylenol) 650 mg PRN Q6HRS PRN PO PAIN / TEMP Last administered on 11/17/17at 03:15; Start 10/30/17 at 15:30 Multi-Ingredient Ointment (Analgesic [place]) 1 annita PRN QID PRN TP MUSCLE PAIN Last administered on 11/01/17at 00:33; Start 10/30/17 at 15:30 Al Hydroxide/Mg Hydroxide (Mylanta Plus Xs) 15 ml PRN AFTMEALHC PRN PO DYSPEPSIA; Start 10/30/17 at 15:30 Magnesium Hydroxide (Milk Of Magnesia) 2,400 mg PRN QHS PRN PO CONSTIPATION Last administered on 11/15/17at 20:54; Start 10/30/17 at 15:30 Quetiapine Fumarate (SEROquel) 12.5 mg BID PO ; Start 10/30/17 at 21:00; Stop 10/30/17 at 21:00; Status DC Info (FLU VACCINE per PROTOCOL) 1 ea 1X ONCE MC ; Start 11/01/17 at 09:00; Stop 11/01/17 at 09:01; Status UNV Pneumococcal Polyvalent Vaccine (Pneumovax 23) 0.5 ml ONCE ONCE VAX IM Last administered on 11/01/17at 10:12; Start 11/01/17 at 09:00; Stop 11/01/17 at 09:01; Status DC Influenza Virus Vaccine Quadrival (Fluarix Quad 1071-1732 Syringe) 0.5 ml ONCE ONCE VAX IM Last administered on 11/01/17 10:10; Start 11/01/17 at 09:00; Stop 11/01/17 at 09:01; Status DC Aspirin (Aspirin Enteric Coated) 81 mg DAILY PO Last administered on 11/16/17 07:51; Start 10/31/17 at 09:00 Clopidogrel Bisulfate (Plavix) 75 mg DAILY PO Last administered on 11/16/17 07 :50; Start 10/31/17 at 09:00 Digoxin (Lanoxin) 125 mcg DAILY PO Last administered on 11/16/17 07:50; Start 10/31/17 at 09:00 Diltiazem HCl (Cardizem 24hr Cd) 120 mg DAILY PO Last administered on 07:51; Start 10/31/17 at 09:00 Docusate Sodium (Colace) 100 mg BID PO Last administered on 11/16/17 20:45; Start 10/30/17 at 21:00 Nitroglycerin (Nitrostat) 0.4 mg PRN Q5MIN PRN SL CHEST PAIN; Start 10/30/17 at 18:30 Vitamin D (Vitamin D3) 1,000 unit DAILY PO Last administered on 11/16/17 07:52 ; Start 10/31/17 at 09:00 Losartan Potassium (Cozaar) 25 mg DAILY PO Last administered on 11/16/17 07:51 ; Start 10/31/17 at 09:00 Levothyroxine Sodium (Synthroid) 200 mcg DAILY07 PO Last administered on 06:20; Start 10/31/17 at 07:00 Quetiapine Fumarate (SEROquel) 12.5 mg DAILY PO Last administered on 11/04/17 10:08; Start 10/31/17 at 09:00; Stop 11/04/17 at 19:26; Status DC Quetiapine Fumarate (SEROquel) 25 mg QHS PO Last administered on 11/03/17 20: 05; Start 10/30/17 at 21:00; Stop 11/04/17 at 17:39; Status DC Sertraline HCl (Zoloft) 25 mg DAILY PO Last administered on 11/07/17 09:53; Start 11/01/17 at 09:00; Stop 11/07/17 at 11:42; Status DC Vitamin D (Vitamin D3) 50,000 unit WEEKLY PO Last administered on 11/15/17at 08: 06; Start 11/01/17 at 12:00 Tramadol HCl (Ultram) 50 mg PRN Q6HRS PRN PO PAIN Last administered on at 21:48; Start 11/01/17 at 14:45 Mirtazapine (Remeron) 7.5 mg QHS PO Last administered on 11/04/17at 19:52; Start 11/01/17 at 21:00; Stop 11/05/17 at 19:19; Status DC Quetiapine Fumarate (SEROquel) 37.5 mg QHS PO ; Start 11/04/17 at 21:00; Stop at 21:00; Status DC Risperidone (RisperDAL) 0.25 mg QHS PO Last administered on 11/11/17at 20:04; Start 11/04/17 at 21:00; Stop 11/12/17 at 18:35; Status DC Mirtazapine (Remeron) 15 mg QHS PO Last administered on 11/16/17at 20:45; Start 11/05/17 at 21:00 Olanzapine (ZyPREXA ZYDIS) 2.5 mg PRN Q2HR PRN PO PSYCHOSIS; Start 11/06/17 at 18:15 Sertraline HCl (Zoloft) 50 mg DAILY PO Last administered on 11/16/17at 07:51; Start 11/08/17 at 09:00 Trazodone HCl (Desyrel) 50 mg QHS PO Last administered on 11/16/17at 20:45; Start 11/09/17 at 21:00 Trazodone HCl (Desyrel) 50 mg PRN QHS PRN PO INSOMNIA; Start 11/09/17 at 19:00 Risperidone (RisperDAL) 0.375 mg QHS PO Last administered on 11/16/17at 20:45; Start 11/12/17 at 21:00 Active Scripts Active Reported Naproxen 375 Mg Tablet 375 Mg PO PRN Q8HRS PRN NITROGLYCERIN SubLingual (Nitroglycerin) 0.4 Mg Tab.subl 1 Tab SL PRN Q5MIN PRN MDD 3 tabs Seroquel (Quetiapine Fumarate) 25 Mg Tablet 12.5 Mg PO BID Colace (Docusate Sodium) 100 Mg Capsule 1 Cap PO BID Diltiazem 24HR Cd (Diltiazem Hcl) 120 Mg Cap.er.24h 1 Cap PO DAILY Vitamin D (Cholecalciferol (Vitamin D3)) 1,000 Unit Capsule 1 Cap PO DAILY Synthroid (Levothyroxine Sodium) 200 Mcg Tablet 1 Tab PO DAILY Avapro (Irbesartan) 75 Mg Tablet 75 Mg PO DAILY Digoxin 250 Mcg Tablet 0.125 Mg PO DAILY Aspirin Ec (Aspirin) 81 Mg Tablet.dr 81 Mg PO DAILY Plavix (Clopidogrel Bisulfate) 75 Mg Tablet 75 Mg PO DAILY I have reviewed the current psychotropics carefully including drug interactions. Risk benefit ratio favors no change other than as noted in my dictated progress note. Diagnosis: Problems: (1) Dementia in Alzheimer's disease with delirium (2) Anxiety disorder (3) Psychosis, atypical SERA THOMAS MD Nov 17, 2017 19:34
[2017-11-17] MEDS: risperiDONE 0.25 MG TABLET. PO SCH (20:58)
[2017-11-17] MEDS: traZODone 50 MG TABLET. PO SCH (20:59)
[2017-11-17] MEDS: MIRTAZAPINE 15 MG TABLET PO SCH (20:59)
[2017-11-18] MEDS: ACETAMINOPHEN 325 MG TABLET PO PRN ×2 (01:53→17:53)
[2017-11-18 06:53] VITALS: BP 140/86
[2017-11-18] MEDS: ASPIRIN ENTERIC COATED 81 MG TABLET.DR. PO SCH (07:50)
[2017-11-18] MEDS: CHOLECALCIFEROL (VITAMIN D3) 1,000 UNIT TABLET PO SCH (07:50)
[2017-11-18] MEDS: DIGOXIN 125 MCG TABLET PO SCH (07:51)
[2017-11-18] MEDS: DOCUSATE SODIUM 100 MG CAPSULE PO SCH ×2 (07:51→20:57)
[2017-11-18] MEDS: SERTRALINE 50 MG TABLET. PO SCH (07:53)
[2017-11-18] MEDS: CLOPIDOGREL BISULFATE 75 MG TABLET PO SCH (07:53)
[2017-11-18] MEDS: LOSARTAN 25 MG TABLET. PO SCH (07:53)
[2017-11-18] MEDS: LEVOTHYROXINE 100 MCG TABLET PO SCH (07:54)
[2017-11-18 08:21] LABS: BASO # 0.1 x10^3/uL (0.0-0.2); BASO % 1 % (0-3); EOS # 0.6 x10^3/uL (0.0-0.7); EOS % 8 % (0-3); HEMATOCRIT 45.6 % (36.0-47.0); HEMOGLOBIN 15.4 g/dL (12.0-15.5); LYMPH # 2.6 x10^3/uL (1.0-4.8); LYMPH % 34 % (24-48); MEAN CORPUSCULAR HEMOGLOBIN 30 pg (25-35); MEAN CORPUSCULAR HGB CONC 34 g/dL (31-37); MEAN CORPUSCULAR VOLUME 90 fL (79-100); MONO % 13 % (0-9); NEUT # 3.4 x10^3uL (1.8-7.7); NEUT % 45 % (31-73); PLATELET COUNT 323 x10^3/uL (140-400); RED BLOOD COUNT 5.08 x10^6/uL (3.50-5.40); RED CELL DISTRIBUTION WIDTH 13.7 % (11.5-14.5); WHITE BLOOD COUNT 7.6 x10^3/uL (4.0-11.0)
[2017-11-18 08:39] LABS: ALBUMIN 3.3 g/dL (3.4-5.0); ALBUMIN/GLOBULIN RATIO 0.9 (1.0-1.7); CALCIUM 8.8 mg/dL (8.5-10.1); CREATININE 0.7 mg/dL (0.6-1.0); GFR 80.1; POTASSIUM 3.8 mmol/L (3.5-5.1); TOTAL BILIRUBIN 0.3 mg/dL (0.2-1.0)
[2017-11-18 15:49] VITALS: BP 109/73
--- NOTE | 2017-11-18 18:54 | PDOC ---
Exam Note: Jj Note: Please also refer to the separate dictated note~for this date of service dictated separately.~Patient seen individually. Discussed the patient with Nursing staff reviewed the chart.~Reviewed interim history and current functioning. Reviewed vital signs,~Labs/ Radiology~and current medications noted below. Continue current treatment with the changes noted in the dictated addendum note Assessment: Vital Signs: Vital Signs Date Time Temp Pulse Resp B/P (MAP) Pulse Ox O2 Delivery O2 Flow Rate FiO2 11/18/17 15:49 98.8 89 18 109/73 (85) 93 11/14/17 16:25 Room Air I&O Intake and Output 11/18/17 07:00 Intake Total 700 ml Balance 700 ml Intake Oral 700 ml # Voids 1 # Bowel Movements 1 Labs: Laboratory Tests Test 11/18/17 07:28 White Blood Count 7.6 x10^3/uL (4.0-11.0) Red Blood Count 5.08 x10^6/uL (3.50-5.40) Hemoglobin 15.4 g/dL (12.0-15.5) Hematocrit 45.6 % (36.0-47.0) Mean Corpuscular Volume 90 fL (79-100) Mean Corpuscular Hemoglobin 30 pg (25-35) Mean Corpuscular Hemoglobin Concent 34 g/dL (31-37) Red Cell Distribution Width 13.7 % (11.5-14.5) Platelet Count 323 x10^3/uL (140-400) Neutrophils (%) (Auto) 45 % (31-73) Lymphocytes (%) (Auto) 34 % (24-48) Monocytes (%) (Auto) 13 % (0-9) H Eosinophils (%) (Auto) 8 % (0-3) H Basophils (%) (Auto) 1 % (0-3) Neutrophils # (Auto) 3.4 x10^3uL (1.8-7.7) Lymphocytes # (Auto) 2.6 x10^3/uL (1.0-4.8) Monocytes # (Auto) 1.0 x10^3/uL (0.0-1.1) Eosinophils # (Auto) 0.6 x10^3/uL (0.0-0.7) Basophils # (Auto) 0.1 x10^3/uL (0.0-0.2) Sodium Level 140 mmol/L (136-145) Potassium Level 3.8 mmol/L (3.5-5.1) Chloride Level 106 mmol/L (98-107) Carbon Dioxide Level 27 mmol/L (21-32) Anion Gap 7 (6-14) Blood Urea Nitrogen 18 mg/dL (7-20) Creatinine 0.7 mg/dL (0.6-1.0) Estimated GFR (Cockcroft-Gault) 80.1 BUN/Creatinine Ratio 26 (6-20) H Glucose Level 115 mg/dL (70-99) H Calcium Level 8.8 mg/dL (8.5-10.1) Total Bilirubin 0.3 mg/dL (0.2-1.0) Aspartate Amino Transferase (AST) 24 U/L (15-37) Alanine Aminotransferase (ALT) 27 U/L (14-59) Alkaline Phosphatase 195 U/L (46-116) H Total Protein 7.0 g/dL (6.4-8.2) Albumin 3.3 g/dL (3.4-5.0) L Albumin/Globulin Ratio 0.9 (1.0-1.7) L Current Medications: Meds: Current Medications Acetaminophen (Tylenol) 650 mg PRN Q6HRS PRN PO PAIN / TEMP Last administered on 11/18/17at 17:53; Start 10/30/17 at 15:30 Multi-Ingredient Ointment (Analgesic [place]) 1 annita PRN QID PRN TP MUSCLE PAIN Last administered on 11/01/17at 00:33; Start 10/30/17 at 15:30 Al Hydroxide/Mg Hydroxide (Mylanta Plus Xs) 15 ml PRN AFTMEALHC PRN PO DYSPEPSIA; Start 10/30/17 at 15:30 Magnesium Hydroxide (Milk Of Magnesia) 2,400 mg PRN QHS PRN PO CONSTIPATION Last administered on 11/15/17at 20:54; Start 10/30/17 at 15:30 Quetiapine Fumarate (SEROquel) 12.5 mg BID PO ; Start 10/30/17 at 21:00; Stop 10/30/17 at 21:00; Status DC Info (FLU VACCINE per PROTOCOL) 1 ea 1X ONCE MC ; Start 11/01/17 at 09:00; Stop 11/01/17 at 09:01; Status UNV Pneumococcal Polyvalent Vaccine (Pneumovax 23) 0.5 ml ONCE ONCE VAX IM Last administered on 11/01/17at 10:12; Start 11/01/17 at 09:00; Stop 11/01/17 at 09:01; Status DC Influenza Virus Vaccine Quadrival (Fluarix Quad [id number] Syringe) 0.5 ml ONCE ONCE VAX IM Last administered on 11/01/17at 10:10; Start 11/01/17 at 09:00; Stop 11/01/17 at 09:01; Status DC Aspirin (Aspirin Enteric Coated) 81 mg DAILY PO Last administered on 11/18/17 07:50; Start 10/31/17 at 09:00 Clopidogrel Bisulfate (Plavix) 75 mg DAILY PO Last administered on 11/18/17 07 :53; Start 10/31/17 at 09:00 Digoxin (Lanoxin) 125 mcg DAILY PO Last administered on 11/18/17 07:51; Start 10/31/17 at 09:00 Diltiazem HCl (Cardizem 24hr Cd) 120 mg DAILY PO Last administered on 07:51; Start 10/31/17 at 09:00 Docusate Sodium (Colace) 100 mg BID PO Last administered on 11/18/17 07:51; Start 10/30/17 at 21:00 Nitroglycerin (Nitrostat) 0.4 mg PRN Q5MIN PRN SL CHEST PAIN; Start 10/30/17 at 18:30 Vitamin D (Vitamin D3) 1,000 unit DAILY PO Last administered on 11/18/17at 07:50 ; Start 10/31/17 at 09:00 Losartan Potassium (Cozaar) 25 mg DAILY PO Last administered on 11/18/17 07:53 ; Start 10/31/17 at 09:00 Levothyroxine Sodium (Synthroid) 200 mcg DAILY07 PO Last administered on 06:20; Start 10/31/17 at 07:00; Stop 11/18/17 at 07:28; Status DC Quetiapine Fumarate (SEROquel) 12.5 mg DAILY PO Last administered on 11/04/17 10:08; Start 10/31/17 at 09:00; Stop 11/04/17 at 19:26; Status DC Quetiapine Fumarate (SEROquel) 25 mg QHS PO Last administered on 11/03/17at 20: 05; Start 10/30/17 at 21:00; Stop 11/04/17 at 17:39; Status DC Sertraline HCl (Zoloft) 25 mg DAILY PO Last administered on 11/07/17at 09:53; Start 11/01/17 at 09:00; Stop 11/07/17 at 11:42; Status DC Vitamin D (Vitamin D3) 50,000 unit WEEKLY PO Last administered on 11/15/17at 08: 06; Start 11/01/17 at 12:00 Tramadol HCl (Ultram) 50 mg PRN Q6HRS PRN PO PAIN Last administered on at 21:48; Start 11/01/17 at 14:45 Mirtazapine (Remeron) 7.5 mg QHS PO Last administered on 11/04/17at 19:52; Start 11/01/17 at 21:00; Stop 11/05/17 at 19:19; Status DC Quetiapine Fumarate (SEROquel) 37.5 mg QHS PO ; Start 11/04/17 at 21:00; Stop at 21:00; Status DC Risperidone (RisperDAL) 0.25 mg QHS PO Last administered on 11/11/17at 20:04; Start 11/04/17 at 21:00; Stop 11/12/17 at 18:35; Status DC Mirtazapine (Remeron) 15 mg QHS PO Last administered on 11/17/17at 20:59; Start 11/05/17 at 21:00 Olanzapine (ZyPREXA ZYDIS) 2.5 mg PRN Q2HR PRN PO PSYCHOSIS; Start 11/06/17 at 18:15 Sertraline HCl (Zoloft) 50 mg DAILY PO Last administered on 11/18/17at 07:53; Start 11/08/17 at 09:00 Trazodone HCl (Desyrel) 50 mg QHS PO Last administered on 11/17/17at 20:59; Start 11/09/17 at 21:00 Trazodone HCl (Desyrel) 50 mg PRN QHS PRN PO INSOMNIA; Start 11/09/17 at 19:00 Risperidone (RisperDAL) 0.375 mg QHS PO Last administered on 11/17/17at 20:58; Start 11/12/17 at 21:00 Levothyroxine Sodium (Synthroid) 200 mcg DAILY06 PO Last administered on at 07:54; Start 11/18/17 at 08:00 Active Scripts Active Reported Naproxen 375 Mg Tablet 375 Mg PO PRN Q8HRS PRN NITROGLYCERIN SubLingual (Nitroglycerin) 0.4 Mg Tab.subl 1 Tab SL PRN Q5MIN PRN MDD 3 tabs Seroquel (Quetiapine Fumarate) 25 Mg Tablet 12.5 Mg PO BID Colace (Docusate Sodium) 100 Mg Capsule 1 Cap PO BID Diltiazem 24HR Cd (Diltiazem Hcl) 120 Mg Cap.er.24h 1 Cap PO DAILY Vitamin D (Cholecalciferol (Vitamin D3)) 1,000 Unit Capsule 1 Cap PO DAILY Synthroid (Levothyroxine Sodium) 200 Mcg Tablet 1 Tab PO DAILY Avapro (Irbesartan) 75 Mg Tablet 75 Mg PO DAILY Digoxin 250 Mcg Tablet 0.125 Mg PO DAILY Aspirin Ec (Aspirin) 81 Mg Tablet.dr 81 Mg PO DAILY Plavix (Clopidogrel Bisulfate) 75 Mg Tablet 75 Mg PO DAILY I have reviewed the current psychotropics carefully including drug interactions. Risk benefit ratio favors no change other than as noted in my dictated progress note. Diagnosis: Problems: (1) Dementia in Alzheimer's disease with delirium (2) Anxiety disorder (3) Psychosis, atypical SERA THOMAS MD Nov 18, 2017 18:54
[2017-11-18] MEDS: risperiDONE 0.25 MG TABLET. PO SCH (20:55)
[2017-11-18] MEDS: MIRTAZAPINE 15 MG TABLET PO SCH (20:56)
[2017-11-18] MEDS: traZODone 50 MG TABLET. PO SCH (20:57)
[2017-11-19 06:34] VITALS: BP 98/69
[2017-11-19] MEDS: LEVOTHYROXINE 100 MCG TABLET PO SCH (07:35)
[2017-11-19 08:53] VITALS: BP 107/68
[2017-11-19] MEDS: LOSARTAN 25 MG TABLET. PO SCH (08:54)
[2017-11-19] MEDS: ASPIRIN ENTERIC COATED 81 MG TABLET.DR. PO SCH (08:54)
[2017-11-19] MEDS: CHOLECALCIFEROL (VITAMIN D3) 1,000 UNIT TABLET PO SCH (08:55)
[2017-11-19] MEDS: CLOPIDOGREL BISULFATE 75 MG TABLET PO SCH (08:55)
[2017-11-19] MEDS: DIGOXIN 125 MCG TABLET PO SCH (08:55)
[2017-11-19] MEDS: SERTRALINE 50 MG TABLET. PO SCH (08:55)
[2017-11-19] MEDS: DOCUSATE SODIUM 100 MG CAPSULE PO SCH ×2 (08:55→21:01)
--- NOTE | 2017-11-19 10:00 | PN ---
DATE: 11/17/2017 This late entry, 11/17/2017, covers elements not covered in my initial note of 11/17/2017. SUBJECTIVE: I met with the patient the evening of 11/17/2017. She was in her room, somewhat anxious, restless, nasty in the morning, paranoid per nursing report, refused her medications. REVIEW OF SYSTEMS: No CV, , pulmonary, eye system symptoms on review. Reliability varies. MENTAL STATUS EXAM: Oriented to herself and situation. Speech coherent, abstraction fair, computation impaired, language function intact, attention span short. Mood and affect somewhat more paranoid, labile. LABORATORY DATA: Reviewed. IMPRESSION: Major depressive disorder with psychotic features; major neurocognitive disorder, Alzheimer, vascular with delusion, depression. Rest unchanged. PLAN: Continue psychotropics mentioned in my initial note. MAN Daron THOMAS MD DR: MEÑO/alexx JOB#: [id number] / [id number]
[2017-11-19 16:29] VITALS: BP 112/68
--- NOTE | 2017-11-19 19:29 | PDOC ---
Exam Note: Jj Note: Please also refer to the separate dictated note~for this date of service dictated separately.~Patient seen individually. Discussed the patient with Nursing staff reviewed the chart.~Reviewed interim history and current functioning. Reviewed vital signs,~Labs/ Radiology~and current medications noted below. Continue current treatment with the changes noted in the dictated addendum note Assessment: Vital Signs: Vital Signs Date Time Temp Pulse Resp B/P (MAP) Pulse Ox O2 Delivery O2 Flow Rate FiO2 11/19/17 16:29 98.5 99 18 112/68 (83) 97 11/14/17 16:25 Room Air I&O Intake and Output 11/19/17 07:00 Intake Total 960 ml Balance 960 ml Intake Oral 960 ml # Voids 2 Current Medications: Meds: Current Medications Acetaminophen (Tylenol) 650 mg PRN Q6HRS PRN PO PAIN / TEMP Last administered on 11/18/17at 17:53; Start 10/30/17 at 15:30 Multi-Ingredient Ointment (Analgesic [facility]) 1 annita PRN QID PRN TP MUSCLE PAIN Last administered on 11/01/17at 00:33; Start 10/30/17 at 15:30 Al Hydroxide/Mg Hydroxide (Mylanta Plus Xs) 15 ml PRN AFTMEALHC PRN PO DYSPEPSIA Last administered on 11/18/17at 23:07; Start 10/30/17 at 15:30 Magnesium Hydroxide (Milk Of Magnesia) 2,400 mg PRN QHS PRN PO CONSTIPATION Last administered on 11/15/17at 20:54; Start 10/30/17 at 15:30 Quetiapine Fumarate (SEROquel) 12.5 mg BID PO ; Start 10/30/17 at 21:00; Stop 10/30/17 at 21:00; Status DC Info (FLU VACCINE per PROTOCOL) 1 ea 1X ONCE MC ; Start 11/01/17 at 09:00; Stop 11/01/17 at 09:01; Status UNV Pneumococcal Polyvalent Vaccine (Pneumovax 23) 0.5 ml ONCE ONCE VAX IM Last administered on 11/01/17at 10:12; Start 11/01/17 at 09:00; Stop 11/01/17 at 09:01; Status DC Influenza Virus Vaccine Quadrival (Fluarix Quad [id number] Syringe) 0.5 ml ONCE ONCE VAX IM Last administered on 11/01/17 10:10; Start 11/01/17 at 09:00; Stop 11/01/17 at 09:01; Status DC Aspirin (Aspirin Enteric Coated) 81 mg DAILY PO Last administered on 11/19/17 08:54; Start 10/31/17 at 09:00 Clopidogrel Bisulfate (Plavix) 75 mg DAILY PO Last administered on 11/19/17 08 :55; Start 10/31/17 at 09:00 Digoxin (Lanoxin) 125 mcg DAILY PO Last administered on 11/19/17 08:55; Start 10/31/17 at 09:00 Diltiazem HCl (Cardizem 24hr Cd) 120 mg DAILY PO Last administered on 08:56; Start 10/31/17 at 09:00 Docusate Sodium (Colace) 100 mg BID PO Last administered on 11/19/17 08:55; Start 10/30/17 at 21:00 Nitroglycerin (Nitrostat) 0.4 mg PRN Q5MIN PRN SL CHEST PAIN; Start 10/30/17 at 18:30 Vitamin D (Vitamin D3) 1,000 unit DAILY PO Last administered on 11/19/17 08:55 ; Start 10/31/17 at 09:00 Losartan Potassium (Cozaar) 25 mg DAILY PO Last administered on 11/19/17 08:54 ; Start 10/31/17 at 09:00 Levothyroxine Sodium (Synthroid) 200 mcg DAILY07 PO Last administered on 06:20; Start 10/31/17 at 07:00; Stop 11/18/17 at 07:28; Status DC Quetiapine Fumarate (SEROquel) 12.5 mg DAILY PO Last administered on 11/04/17 10:08; Start 10/31/17 at 09:00; Stop 11/04/17 at 19:26; Status DC Quetiapine Fumarate (SEROquel) 25 mg QHS PO Last administered on 11/03/17 20: 05; Start 10/30/17 at 21:00; Stop 11/04/17 at 17:39; Status DC Sertraline HCl (Zoloft) 25 mg DAILY PO Last administered on 11/07/17 09:53; Start 11/01/17 at 09:00; Stop 11/07/17 at 11:42; Status DC Vitamin D (Vitamin D3) 50,000 unit WEEKLY PO Last administered on 11/15/17at 08: 06; Start 11/01/17 at 12:00 Tramadol HCl (Ultram) 50 mg PRN Q6HRS PRN PO PAIN Last administered on 21:48; Start 11/01/17 at 14:45 Mirtazapine (Remeron) 7.5 mg QHS PO Last administered on 11/04/17 19:52; Start 11/01/17 at 21:00; Stop 11/05/17 at 19:19; Status DC Quetiapine Fumarate (SEROquel) 37.5 mg QHS PO ; Start 11/04/17 at 21:00; Stop at 21:00; Status DC Risperidone (RisperDAL) 0.25 mg QHS PO Last administered on 11/11/17at 20:04; Start 11/04/17 at 21:00; Stop 11/12/17 at 18:35; Status DC Mirtazapine (Remeron) 15 mg QHS PO Last administered on 11/18/17at 20:56; Start 11/05/17 at 21:00 Olanzapine (ZyPREXA ZYDIS) 2.5 mg PRN Q2HR PRN PO PSYCHOSIS; Start 11/06/17 at 18:15 Sertraline HCl (Zoloft) 50 mg DAILY PO Last administered on 11/19/17at 08:55; Start 11/08/17 at 09:00 Trazodone HCl (Desyrel) 50 mg QHS PO Last administered on 11/18/17at 20:57; Start 11/09/17 at 21:00 Trazodone HCl (Desyrel) 50 mg PRN QHS PRN PO INSOMNIA; Start 11/09/17 at 19:00 Risperidone (RisperDAL) 0.375 mg QHS PO Last administered on 11/18/17at 20:55; Start 11/12/17 at 21:00 Levothyroxine Sodium (Synthroid) 200 mcg DAILY06 PO Last administered on at 07:35; Start 11/18/17 at 08:00 Active Scripts Active Reported Naproxen 375 Mg Tablet 375 Mg PO PRN Q8HRS PRN NITROGLYCERIN SubLingual (Nitroglycerin) 0.4 Mg Tab.subl 1 Tab SL PRN Q5MIN PRN MDD 3 tabs Seroquel (Quetiapine Fumarate) 25 Mg Tablet 12.5 Mg PO BID Colace (Docusate Sodium) 100 Mg Capsule 1 Cap PO BID Diltiazem 24HR Cd (Diltiazem Hcl) 120 Mg Cap.er.24h 1 Cap PO DAILY Vitamin D (Cholecalciferol (Vitamin D3)) 1,000 Unit Capsule 1 Cap PO DAILY Synthroid (Levothyroxine Sodium) 200 Mcg Tablet 1 Tab PO DAILY Avapro (Irbesartan) 75 Mg Tablet 75 Mg PO DAILY Digoxin 250 Mcg Tablet 0.125 Mg PO DAILY Aspirin Ec (Aspirin) 81 Mg Tablet.dr 81 Mg PO DAILY Plavix (Clopidogrel Bisulfate) 75 Mg Tablet 75 Mg PO DAILY I have reviewed the current psychotropics carefully including drug interactions. Risk benefit ratio favors no change other than as noted in my dictated progress note. Diagnosis: Problems: (1) Dementia in Alzheimer's disease with delirium (2) Anxiety disorder (3) Psychosis, atypical SERA THOMAS MD Nov 19, 2017 19:29
[2017-11-19] MEDS: MIRTAZAPINE 15 MG TABLET PO SCH (21:00)
[2017-11-19] MEDS: traZODone 50 MG TABLET. PO SCH (21:01)
[2017-11-19] MEDS: risperiDONE 0.25 MG TABLET. PO SCH (21:01)
[2017-11-19] MEDS ORDERED: TRAM50TA PO (23:42)
[2017-11-19] MEDS ORDERED: ACET500T68 PO (23:45)
[2017-11-19] MEDS ORDERED: LOSA25TA4 PO (23:52)
[2017-11-19] MEDS ORDERED: MAG30ORA2 PO (23:54)
[2017-11-19] MEDS ORDERED: MAGN2400 PO (23:57)
[2017-11-19] MEDS ORDERED: METH29OI TP (23:58)
[2017-11-20] MEDS ORDERED: MIRT15TA PO
[2017-11-20] MEDS ORDERED: OLAN5TAB5 PO (00:01)
[2017-11-20] MEDS ORDERED: SERT50TA8 PO (00:04)
[2017-11-20] MEDS ORDERED: RISP0.2519 PO (00:06)
[2017-11-20] MEDS ORDERED: TRAZ50TA15 PO ×2 (00:07→00:08)
[2017-11-20] MEDS: LEVOTHYROXINE 100 MCG TABLET PO SCH (05:43)
[2017-11-20 06:09] VITALS: BP 116/62
[2017-11-20] MEDS: ASPIRIN ENTERIC COATED 81 MG TABLET.DR. PO SCH (07:36)
[2017-11-20] MEDS: DOCUSATE SODIUM 100 MG CAPSULE PO SCH (07:37)
[2017-11-20] MEDS: LOSARTAN 25 MG TABLET. PO SCH (07:37)
[2017-11-20] MEDS: CLOPIDOGREL BISULFATE 75 MG TABLET PO SCH (07:37)
[2017-11-20] MEDS: CHOLECALCIFEROL (VITAMIN D3) 1,000 UNIT TABLET PO SCH (07:37)
[2017-11-20] MEDS: DIGOXIN 125 MCG TABLET PO SCH (07:37)
[2017-11-20] MEDS: SERTRALINE 50 MG TABLET. PO SCH (07:37)
[2017-11-20 07:38] VITALS: BP 116/62
--- NOTE | 2017-11-20 11:20 | PN ---
DATE: 11/18/2017 PSYCHIATRIC PROGRESS NOTE This late entry 11/18/2017 covers elements not covered in my initial note 11/18/2017. SUBJECTIVE: I met with the patient evening of 11/18/2017. The patient slept 6-3/4 hours previous evening, took her medicine at night. He compliant during the day on 11/18/2017, spends much time in her room. REVIEW OF SYSTEMS: No CV, , pulmonary, eye system symptoms on review. MENTAL STATUS EXAM: Oriented to herself and situation. Speech is coherent, abstraction fair, computation impaired, language function intact. Short-term memory has some deficits. No suicidal or homicidal ideation. IMPRESSION: 1. Major depressive disorder with psychotic features; major neurocognitive disorder, early Alzheimer, vascular with delusion, depression. Rest unchanged. 2. The second diagnosis corroborated by psychological testing by Dr. Mays. PLAN: Continue psychotropics mentioned in my initial note. Adjust further as clinically indicated. SERA THOMAS MD DR: MEÑO/alexx JOB#: [id number] / [id number]
[2017-11-20] MEDS ORDERED: CHOL500016 PO (11:34)
--- NOTE | 2017-11-20 20:02 | PDOC ---
Exam Note: Jj Note: Please also refer to the separate dictated note~for this date of service dictated separately.~Patient seen individually. Discussed the patient with Nursing staff reviewed the chart.~Reviewed interim history and current functioning. Reviewed vital signs,~Labs/ Radiology~and current medications noted below. Continue current treatment with the changes noted in the dictated addendum note Assessment: Vital Signs: Vital Signs Date Time Temp Pulse Resp B/P (MAP) Pulse Ox O2 Delivery O2 Flow Rate FiO2 11/20/17 07:38 64 116/62 11/20/17 06:09 98.4 16 93 11/14/17 16:25 Room Air I&O Intake and Output 11/20/17 07:00 Intake Total 1360 ml Balance 1360 ml Intake Oral 1360 ml # Voids 2 Current Medications: Meds: Current Medications Acetaminophen (Tylenol) 650 mg PRN Q6HRS PRN PO PAIN / TEMP Last administered on 11/18/17at 17:53; Start 10/30/17 at 15:30; Stop 11/20/17 at 15:07; Status DC Multi-Ingredient Ointment (Analgesic [place]) 1 nabor PRN QID PRN TP MUSCLE PAIN Last administered on 11/01/17at 00:33; Start 10/30/17 at 15:30; Stop 11/20/17 at 15 :07; Status DC Al Hydroxide/Mg Hydroxide (Mylanta Plus Xs) 15 ml PRN AFTMEALHC PRN PO DYSPEPSIA Last administered on 11/18/17at 23:07; Start 10/30/17 at 15:30; Stop at 15:07; Status DC Magnesium Hydroxide (Milk Of Magnesia) 2,400 mg PRN QHS PRN PO CONSTIPATION Last administered on 11/15/17at 20:54; Start 10/30/17 at 15:30; Stop 11/20/17 at 15:07; Status DC Quetiapine Fumarate (SEROquel) 12.5 mg BID PO ; Start 10/30/17 at 21:00; Stop 10/30/17 at 21:00; Status DC Info (FLU VACCINE per PROTOCOL) 1 ea 1X ONCE MC ; Start 11/01/17 at 09:00; Stop 11/01/17 at 09:01; Status UNV Pneumococcal Polyvalent Vaccine (Pneumovax 23) 0.5 ml ONCE ONCE VAX IM Last administered on 11/01/17at 10:12; Start 11/01/17 at 09:00; Stop 11/01/17 at 09:01; Status DC Influenza Virus Vaccine Quadrival (Fluarix Quad 9365-6655 Syringe) 0.5 ml ONCE ONCE VAX IM Last administered on 11/01/17at 10:10; Start 11/01/17 at 09:00; Stop 11/01/17 at 09:01; Status DC Aspirin (Aspirin Enteric Coated) 81 mg DAILY PO Last administered on 11/20/17at 07:36; Start 10/31/17 at 09:00; Stop 11/20/17 at 15:07; Status DC Clopidogrel Bisulfate (Plavix) 75 mg DAILY PO Last administered on 11/20/17at 07 :37; Start 10/31/17 at 09:00; Stop 11/20/17 at 15:07; Status DC Digoxin (Lanoxin) 125 mcg DAILY PO Last administered on 11/20/17at 07:37; Start 10/31/17 at 09:00; Stop 11/20/17 at 15:07; Status DC Diltiazem HCl (Cardizem 24hr Cd) 120 mg DAILY PO Last administered on at 07:38; Start 10/31/17 at 09:00; Stop 11/20/17 at 15:07; Status DC Docusate Sodium (Colace) 100 mg BID PO Last administered on 11/20/17at 07:37; Start 10/30/17 at 21:00; Stop 11/20/17 at 15:07; Status DC Nitroglycerin (Nitrostat) 0.4 mg PRN Q5MIN PRN SL CHEST PAIN; Start 10/30/17 at 18:30; Stop 11/20/17 at 15:07; Status DC Vitamin D (Vitamin D3) 1,000 unit DAILY PO Last administered on 11/20/17at 07:37 ; Start 10/31/17 at 09:00; Stop 11/20/17 at 15:07; Status DC Losartan Potassium (Cozaar) 25 mg DAILY PO Last administered on 11/20/17at 07:37 ; Start 10/31/17 at 09:00; Stop 11/20/17 at 15:07; Status DC Levothyroxine Sodium (Synthroid) 200 mcg DAILY07 PO Last administered on at 06:20; Start 10/31/17 at 07:00; Stop 11/18/17 at 07:28; Status DC Quetiapine Fumarate (SEROquel) 12.5 mg DAILY PO Last administered on 11/04/17at 10:08; Start 10/31/17 at 09:00; Stop 11/04/17 at 19:26; Status DC Quetiapine Fumarate (SEROquel) 25 mg QHS PO Last administered on 11/03/17at 20: 05; Start 10/30/17 at 21:00; Stop 11/04/17 at 17:39; Status DC Sertraline HCl (Zoloft) 25 mg DAILY PO Last administered on 11/07/17at 09:53; Start 11/01/17 at 09:00; Stop 11/07/17 at 11:42; Status DC Vitamin D (Vitamin D3) 50,000 unit WEEKLY PO Last administered on 11/15/17at 08: 06; Start 11/01/17 at 12:00; Stop 11/20/17 at 15:07; Status DC Tramadol HCl (Ultram) 50 mg PRN Q6HRS PRN PO PAIN Last administered on at 21:48; Start 11/01/17 at 14:45; Stop 11/20/17 at 15:07; Status DC Mirtazapine (Remeron) 7.5 mg QHS PO Last administered on 11/04/17at 19:52; Start 11/01/17 at 21:00; Stop 11/05/17 at 19:19; Status DC Quetiapine Fumarate (SEROquel) 37.5 mg QHS PO ; Start 11/04/17 at 21:00; Stop at 21:00; Status DC Risperidone (RisperDAL) 0.25 mg QHS PO Last administered on 11/11/17at 20:04; Start 11/04/17 at 21:00; Stop 11/12/17 at 18:35; Status DC Mirtazapine (Remeron) 15 mg QHS PO Last administered on 11/19/17at 21:00; Start 11/05/17 at 21:00; Stop 11/20/17 at 15:07; Status DC Olanzapine (ZyPREXA ZYDIS) 2.5 mg PRN Q2HR PRN PO PSYCHOSIS; Start 11/06/17 at 18:15; Stop 11/20/17 at 15:07; Status DC Sertraline HCl (Zoloft) 50 mg DAILY PO Last administered on 11/20/17at 07:37; Start 11/08/17 at 09:00; Stop 11/20/17 at 15:07; Status DC Trazodone HCl (Desyrel) 50 mg QHS PO Last administered on 11/19/17at 21:01; Start 11/09/17 at 21:00; Stop 11/20/17 at 15:07; Status DC Trazodone HCl (Desyrel) 50 mg PRN QHS PRN PO INSOMNIA; Start 11/09/17 at 19:00 ; Stop 11/20/17 at 15:07; Status DC Risperidone (RisperDAL) 0.375 mg QHS PO Last administered on 11/19/17at 21:01; Start 11/12/17 at 21:00; Stop 11/20/17 at 15:07; Status DC Levothyroxine Sodium (Synthroid) 200 mcg DAILY06 PO Last administered on at 05:43; Start 11/18/17 at 08:00; Stop 11/20/17 at 15:07; Status DC Active Scripts Active Reported Vitamin D3 (Cholecalciferol (Vitamin D3)) 5,000 Unit Tablet 50,000 Unit PO WEEKLY Weekly on Fridays Trazodone Hcl 50 Mg Tablet 50 Mg PO PRN QHS PRN Trazodone Hcl 50 Mg Tablet 50 Mg PO HS Risperdal (Risperidone) 0.25 Mg Tablet 0.375 Mg PO HS Sertraline Hcl 50 Mg Tablet 50 Mg PO DAILY Zyprexa Zydis (Olanzapine) 5 Mg Tab.rapdis 2.5 Mg PO PRN Q2HR PRN mAX DOSE 7.5 MG IN 24 HOURS Remeron (Mirtazapine) 15 Mg Tablet 15 Mg PO HS Analgesic [place] (Methyl Salicylate/Menthol) 28 Gm Oint...g. 1 Nabor TP PRN QID PRN Milk Of Magnesia (Magnesium Hydroxide) 2,400 Mg/10 Ml Oral.susp 2,400 Mg PO PRN QHS PRN Mag-Al Plus Xs Suspension (Mag Hydrox/Al Hydrox/Simeth) 30 Ml Oral.susp 15 Ml PO PRN AFTMEALHC PRN Losartan Potassium 25 Mg Tablet 25 Mg PO DAILY Acetaminophen 500 Mg Tablet 650 Mg PO PRN Q6HRS PRN MDD 4000mg/24hr Tramadol Hcl (Tramadol HCl) 50 Mg Tablet 50 Mg PO PRN Q6HRS PRN NITROGLYCERIN SubLingual (Nitroglycerin) 0.4 Mg Tab.subl 1 Tab SL PRN Q5MIN PRN MDD 3 tabs Colace (Docusate Sodium) 100 Mg Capsule 1 Cap PO BID Diltiazem 24HR Cd (Diltiazem Hcl) 120 Mg Cap.er.24h 1 Cap PO DAILY Vitamin D (Cholecalciferol (Vitamin D3)) 1,000 Unit Capsule 1 Cap PO DAILY Synthroid (Levothyroxine Sodium) 200 Mcg Tablet 1 Tab PO DAILY06 Digoxin 250 Mcg Tablet 125 Mcg PO DAILY Aspirin Ec (Aspirin) 81 Mg Tablet. 81 Mg PO DAILY Plavix (Clopidogrel Bisulfate) 75 Mg Tablet 75 Mg PO DAILY I have reviewed the current psychotropics carefully including drug interactions. Risk benefit ratio favors no change other than as noted in my dictated progress note. Diagnosis: Problems: (1) Dementia in Alzheimer's disease with delirium (2) Anxiety disorder (3) Psychosis, atypical SERA THOMAS MD Nov 20, 2017 20:02
--- NOTE | 2017-11-21 07:19 | PN ---
DATE: 11/19/2017 This late entry 11/19/2017 covers elements not covered in my initial note 11/19/2017. Met with the patient in the evening of 11/19/2017. The patient slept 7 hours previous evening, spends much time in her room, withdrawn, but not aggressive, less paranoid. No CV, , pulmonary, eye, ENT system symptoms on review. MENTAL STATUS EXAM: Oriented to herself and situation. Speech coherent, abstraction fair, computation impaired, short term memory impaired. No suicidal or homicidal ideation. Attention span somewhat short at times. LABORATORY DATA: Reviewed. IMPRESSION: Major depressive disorder with psychotic features in partial remission; major neurocognitive disorder, Alzheimer, vascular with delusion, depression. PLAN: Continue psychotropics mentioned in my initial note. MAN Daron THOMAS MD DR: MEÑO/alexx JOB#: [id number] / [id number]
--- NOTE | 2017-11-22 10:13 | PDOC ---
Exam Note: Jj Note: Please also refer to the separate dictated note~for this date of service dictated separately.~Patient seen individually. Discussed the patient with Nursing staff reviewed the chart.~Reviewed interim history and current functioning. Reviewed vital signs,~Labs/ Radiology~and current medications noted below. Continue current treatment with the changes noted in the dictated addendum note.This is a late entry for date of service Nov 20, 2017 Assessment: Vital Signs: VS - Last 72 Hours, by Label Date Time Temp Pulse Resp B/P (MAP) Pulse Ox O2 Delivery O2 Flow Rate FiO2 11/20/17 07:38 64 116/62 11/20/17 07:37 64 116/62 11/20/17 07:37 64 116/62 11/20/17 06:09 98.4 64 16 116/62 (80) 93 11/19/17 16:29 98.5 99 18 112/68 (83) 97 Vital Signs Date Time Temp Pulse Resp B/P (MAP) Pulse Ox O2 Delivery O2 Flow Rate FiO2 11/20/17 07:38 64 116/62 11/20/17 06:09 98.4 16 93 Current Medications: Meds: Current Medications Acetaminophen (Tylenol) 650 mg PRN Q6HRS PRN PO PAIN / TEMP Last administered on 11/18/17at 17:53; Start 10/30/17 at 15:30; Stop 11/20/17 at 15:07; Status DC Multi-Ingredient Ointment (Analgesic [place]) 1 nabor PRN QID PRN TP MUSCLE PAIN Last administered on 11/01/17at 00:33; Start 10/30/17 at 15:30; Stop 11/20/17 at 15 :07; Status DC Al Hydroxide/Mg Hydroxide (Mylanta Plus Xs) 15 ml PRN AFTMEALHC PRN PO DYSPEPSIA Last administered on 11/18/17at 23:07; Start 10/30/17 at 15:30; Stop at 15:07; Status DC Magnesium Hydroxide (Milk Of Magnesia) 2,400 mg PRN QHS PRN PO CONSTIPATION Last administered on 11/15/17at 20:54; Start 10/30/17 at 15:30; Stop 11/20/17 at 15:07; Status DC Quetiapine Fumarate (SEROquel) 12.5 mg BID PO ; Start 10/30/17 at 21:00; Stop 10/30/17 at 21:00; Status DC Info (FLU VACCINE per PROTOCOL) 1 ea 1X ONCE MC ; Start 11/01/17 at 09:00; Stop 11/01/17 at 09:01; Status UNV Pneumococcal Polyvalent Vaccine (Pneumovax 23) 0.5 ml ONCE ONCE VAX IM Last administered on 11/01/17at 10:12; Start 11/01/17 at 09:00; Stop 11/01/17 at 09:01; Status DC Influenza Virus Vaccine Quadrival (Fluarix Quad [id number] Syringe) 0.5 ml ONCE ONCE VAX IM Last administered on 11/01/17at 10:10; Start 11/01/17 at 09:00; Stop 11/01/17 at 09:01; Status DC Aspirin (Aspirin Enteric Coated) 81 mg DAILY PO Last administered on 11/20/17at 07:36; Start 10/31/17 at 09:00; Stop 11/20/17 at 15:07; Status DC Clopidogrel Bisulfate (Plavix) 75 mg DAILY PO Last administered on 11/20/17at 07 :37; Start 10/31/17 at 09:00; Stop 11/20/17 at 15:07; Status DC Digoxin (Lanoxin) 125 mcg DAILY PO Last administered on 11/20/17at 07:37; Start 10/31/17 at 09:00; Stop 11/20/17 at 15:07; Status DC Diltiazem HCl (Cardizem 24hr Cd) 120 mg DAILY PO Last administered on at 07:38; Start 10/31/17 at 09:00; Stop 11/20/17 at 15:07; Status DC Docusate Sodium (Colace) 100 mg BID PO Last administered on 11/20/17at 07:37; Start 10/30/17 at 21:00; Stop 11/20/17 at 15:07; Status DC Nitroglycerin (Nitrostat) 0.4 mg PRN Q5MIN PRN SL CHEST PAIN; Start 10/30/17 at 18:30; Stop 11/20/17 at 15:07; Status DC Vitamin D (Vitamin D3) 1,000 unit DAILY PO Last administered on 11/20/17at 07:37 ; Start 10/31/17 at 09:00; Stop 11/20/17 at 15:07; Status DC Losartan Potassium (Cozaar) 25 mg DAILY PO Last administered on 11/20/17at 07:37 ; Start 10/31/17 at 09:00; Stop 11/20/17 at 15:07; Status DC Levothyroxine Sodium (Synthroid) 200 mcg DAILY07 PO Last administered on at 06:20; Start 10/31/17 at 07:00; Stop 11/18/17 at 07:28; Status DC Quetiapine Fumarate (SEROquel) 12.5 mg DAILY PO Last administered on 11/04/17at 10:08; Start 10/31/17 at 09:00; Stop 11/04/17 at 19:26; Status DC Quetiapine Fumarate (SEROquel) 25 mg QHS PO Last administered on 11/03/17at 20: 05; Start 10/30/17 at 21:00; Stop 11/04/17 at 17:39; Status DC Sertraline HCl (Zoloft) 25 mg DAILY PO Last administered on 11/07/17at 09:53; Start 11/01/17 at 09:00; Stop 11/07/17 at 11:42; Status DC Vitamin D (Vitamin D3) 50,000 unit WEEKLY PO Last administered on 11/15/17at 08: 06; Start 11/01/17 at 12:00; Stop 11/20/17 at 15:07; Status DC Tramadol HCl (Ultram) 50 mg PRN Q6HRS PRN PO PAIN Last administered on at 21:48; Start 11/01/17 at 14:45; Stop 11/20/17 at 15:07; Status DC Mirtazapine (Remeron) 7.5 mg QHS PO Last administered on 11/04/17at 19:52; Start 11/01/17 at 21:00; Stop 11/05/17 at 19:19; Status DC Quetiapine Fumarate (SEROquel) 37.5 mg QHS PO ; Start 11/04/17 at 21:00; Stop at 21:00; Status DC Risperidone (RisperDAL) 0.25 mg QHS PO Last administered on 11/11/17at 20:04; Start 11/04/17 at 21:00; Stop 11/12/17 at 18:35; Status DC Mirtazapine (Remeron) 15 mg QHS PO Last administered on 11/19/17at 21:00; Start 11/05/17 at 21:00; Stop 11/20/17 at 15:07; Status DC Olanzapine (ZyPREXA ZYDIS) 2.5 mg PRN Q2HR PRN PO PSYCHOSIS; Start 11/06/17 at 18:15; Stop 11/20/17 at 15:07; Status DC Sertraline HCl (Zoloft) 50 mg DAILY PO Last administered on 11/20/17at 07:37; Start 11/08/17 at 09:00; Stop 11/20/17 at 15:07; Status DC Trazodone HCl (Desyrel) 50 mg QHS PO Last administered on 11/19/17at 21:01; Start 11/09/17 at 21:00; Stop 11/20/17 at 15:07; Status DC Trazodone HCl (Desyrel) 50 mg PRN QHS PRN PO INSOMNIA; Start 11/09/17 at 19:00 ; Stop 11/20/17 at 15:07; Status DC Risperidone (RisperDAL) 0.375 mg QHS PO Last administered on 11/19/17at 21:01; Start 11/12/17 at 21:00; Stop 11/20/17 at 15:07; Status DC Levothyroxine Sodium (Synthroid) 200 mcg DAILY06 PO Last administered on at 05:43; Start 11/18/17 at 08:00; Stop 11/20/17 at 15:07; Status DC Active Scripts Active Reported Vitamin D3 (Cholecalciferol (Vitamin D3)) 5,000 Unit Tablet 50,000 Unit PO WEEKLY Weekly on Fridays Trazodone Hcl 50 Mg Tablet 50 Mg PO PRN QHS PRN Trazodone Hcl 50 Mg Tablet 50 Mg PO HS Risperdal (Risperidone) 0.25 Mg Tablet 0.375 Mg PO HS Sertraline Hcl 50 Mg Tablet 50 Mg PO DAILY Zyprexa Zydis (Olanzapine) 5 Mg Tab.rapdis 2.5 Mg PO PRN Q2HR PRN mAX DOSE 7.5 MG IN 24 HOURS Remeron (Mirtazapine) 15 Mg Tablet 15 Mg PO HS Analgesic [place] (Methyl Salicylate/Menthol) 28 Gm Oint...g. 1 N[place] TP PRN QID PRN Milk Of Magnesia (Magnesium Hydroxide) 2,400 Mg/10 Ml Oral.susp 2,400 Mg PO PRN QHS PRN Mag-Al Plus Xs Suspension (Mag Hydrox/Al Hydrox/Simeth) 30 Ml Oral.susp 15 Ml PO PRN AFTMEALHC PRN Losartan Potassium 25 Mg Tablet 25 Mg PO DAILY Acetaminophen 500 Mg Tablet 650 Mg PO PRN Q6HRS PRN MDD 4000mg/24hr Tramadol Hcl (Tramadol HCl) 50 Mg Tablet 50 Mg PO PRN Q6HRS PRN NITROGLYCERIN SubLingual (Nitroglycerin) 0.4 Mg Tab.subl 1 Tab SL PRN Q5MIN PRN MDD 3 tabs Colace (Docusate Sodium) 100 Mg Capsule 1 Cap PO BID Diltiazem 24HR Cd (Diltiazem Hcl) 120 Mg Cap.er.24h 1 Cap PO DAILY Vitamin D (Cholecalciferol (Vitamin D3)) 1,000 Unit Capsule 1 Cap PO DAILY Synthroid (Levothyroxine Sodium) 200 Mcg Tablet 1 Tab PO DAILY06 Digoxin 250 Mcg Tablet 125 Mcg PO DAILY Aspirin Ec (Aspirin) 81 Mg Tablet. 81 Mg PO DAILY Plavix (Clopidogrel Bisulfate) 75 Mg Tablet 75 Mg PO DAILY I have reviewed the current psychotropics carefully including drug interactions. Risk benefit ratio favors no change other than as noted in my dictated progress note. Diagnosis: Problems: (1) Psychosis, atypical (2) Anxiety disorder (3) Dementia in Alzheimer's disease with delirium SERA THOMAS MD Nov 22, 2017 10:13
--- NOTE | 2017-11-22 12:57 | DS ---
DATE OF DISCHARGE: 11/20/2017 This is a late entry 11/20/2017 covers elements not covered in my initial note of 11/20/2017. REASON FOR ADMISSION: Please refer to the admission history for details. Briefly, the patient is an 82-year-old female was living at home and presented to the [facility] Emergency Room on account of increased agitation, aggression, paranoia, confusion. She had not been eating, had a drop in her weight. She was extremely psychotic, believing family was stealing from her, closed her to bank account to get money for herself, refusing all cares. She is progressively depressed. Behaviors were deemed dangerous and she was admitted to the [facility] and then referred to us for inpatient psychiatric stabilization. SIGNIFICANT FINDINGS AND CLINICAL COURSE: Following admission, the patient was seen daily individually by myself, followed medically per Dr. Callaway/Dr. Lam. She is quite depressed, extremely psychotic, paranoid. Psychological testing by Dr. Mays was indicative of major neurocognitive disorder, Alzheimer, vascular with delusion, depression. She additionally had a diagnosis of major depressive disorder. She seemed to respond to a combination of Risperdal 0.375 mg p.o. at bedtime, Zoloft 50 mg a day, Remeron 15 mg at bedtime, Zyprexa p.r.n., trazodone 50 mg at bedtime, may repeat x 1 for insomnia. Gradually mood appeared to improve. She was more cooperative, pleasant, still withdrawn to her room, but no suicidal or homicidal ideation at discharge. human services manager worked diligently to find appropriate placement in coordination with the family. FINAL DIAGNOSES: Major depressive disorder with psychotic features; major neurocognitive disorder; Alzheimer, vascular with delusion; depression, in partial remission; anxiety disorder, unspecified; impulse control disorder, unspecified. Rest unchanged from admission. DISCHARGE MEDICATIONS: Please refer to the EMRAD. DISCHARGE INSTRUCTIONS: Outpatient psychiatric and medical followup at the skilled nursing. MAN Daron THOMAS MD DR: MEÑO/alexx JOB#: [id number] / [id number]
== END 2017-11-20 14:15 | DRG 885 ==
LOC: GEROPSY 14:43
PROVIDERS: ADMIT Psychiatry & Neurology Psychiatry; ATTEND Psychiatry & Neurology Psychiatry
DX: F31.64 Bipolar disorder, current episode mixed, severe, with psychotic features (principal); G30.0 Alzheimer's disease with early onset; F01.51 Vascular dementia, unspecified severity, with behavioral disturbance; I48.91 Unspecified atrial fibrillation; F02.81 Dementia in other diseases classified elsewhere, unspecified severity, with behavioral disturbance; F05 Delirium due to known physiological condition; E03.9 Hypothyroidism, unspecified; G47.00 Insomnia, unspecified; F41.9 Anxiety disorder, unspecified; R54 Age-related physical debility; M19.90 Unspecified osteoarthritis, unspecified site; G89.29 Other chronic pain; Z86.73 Personal history of transient ischemic attack (TIA), and cerebral infarction without residual deficits; Z88.1 Allergy status to other antibiotic agents; Z88.8 Allergy status to other drugs, medicaments and biological substances; Z79.899 Other long term (current) drug therapy; Z88.0 Allergy status to penicillin
CPT/HCPCS: 36415; 70450; 72125; 80053; 80061; 80162; 81001; 82306; 82607; 83036; 83540; 83550; 83735; 84436; 84443; 84480; 85025; 86593; 90686; 90732; 97010; 97110; 97530